=== PATIENT | male | born 1970 | race Caucasian/White ===

== ENCOUNTER 2020-06-01 17:00 | Emergency (ER) | payer BC, SELFPAY ==
--- NOTE | ~2020-06-01 | XR_ITS ---
EXAMINATION: XR chest 2V DATE: 06/01/2020 17:55 INDICATION: Chest pain and hypertension TECHNIQUE: PA and lateral views of the chest were obtained. COMPARISON: Chest radiograph dated 02/11/2017 FINDINGS: The lungs remain clear with no focal airspace opacities, pulmonary edema, pleural effusion or pneumot horax. The cardiomediastinal silhouette is normal. Cholecystectomy clips in the right upper quadrant. Moderate thoracolumbar spondylosis. Anterior plate and screw fixation for lower cervical anterior sp inal fusion. IMPRESSION: 1. No acute cardiopulmonary disease. Reviewed, dictated and finalized at location A.
[2020-06-01 17:07] VITALS: BP 204/84; PULSE 65; RESP 18; TEMP 37.2; O2SAT 99
--- NOTE | 2020-06-01 17:18 | ECG_ITS ---
Measurements Intervals [place] Rate: 66 P: 44 [place]: 170 QRS: -47 QRSD: 104 T: 15 QT: 318 QTc: 334 Interpretive Statements SINUS RHYTHM LEFT ANTERIOR FASCICULAR BLOCK VOLTAGE CRITERIA FOR LVH NONSPECIFIC T-WAVE ABNORMALITY- INFERIOR LEADS ABNORMAL ECG Electronically Signed On 06-02-2020 6:54:54 CDT by Kelvin Horne D.O.
[2020-06-01 17:28] LABS: Basophils Absolute Auto 0.1 K/mm3 (0.0-0.1); Basophils Percent Auto 0.5 % (0.2-1.2); Eosinophils Absolute Auto 0.2 K/mm3 (0-0.3); Eosinophils Percent Auto 1.8 % (0-4.4); Hemoglobin 15.1 g/dL (14.0-18.0); Immature Granulocyte Absolute 0.05 K/mm3 (0.00-0.031); Immature Granulocyte Percent A 0.5 % (0-0.5); Lymphocytes Absolute Auto 2.92 K/mm3 (0.9-3.2); Mean Corpuscular HGB Conc 35.1 g/dl (32-36); Mean Corpuscular Hemoglobin 30.2 pg (26-34); Mean Platelet Volume 10.4 fl (7.4-10.4); Neutrophils Absolute Auto 5.9 K/mm3 (1.3-6.7); Neutrophils Percent Auto 58.2 % (45.5-73.1); Platelet Count Result 209 k/mm3 (150-375); Red Cell Distribution Width 12.3 % (11.5-14.5); White Blood Count 10.1 K/mm3 (4.5-10.0)
--- NOTE | 2020-06-01 17:30 | ED.GENADULT ---
HPI - General Adult General Chief complaint: Chest Pain <Franco Thomason PA-C - Last Filed: 06/01/20 21:02> Stated complaint: chest pressure/htn <Franco Thomason PA-C - Last Filed: 06/01/20 21:02> Time Seen by Provider: 06/01/20 17:21 <Franco Thomason PA-C - Last Filed: 06/01/20 21:02> Source: patient <Franco Thomason PA-C - Last Filed: 06/01/20 21:02> Mode of arrival: ambulatory <Franco Thomason PA-C - Last Filed: 06/01/20 21:02> Limitations: no limitations <Franco Thomason PA-C - Last Filed: 06/01/20 21:02> History of Present Illness HPI narrative: Patient is a 50-year-old male who presents to emergency department for evaluation of left-sided chest pain just above the breast that is been present for 2 weeks occurs every day patient notes he has been under increasing stress and that his blood pressure has been running high patient recently had his blood pressure medicine alteredin the last 2 weeks and then hydrochlorothiazide was added in the last 2 days. Patient notes mild discomfort that does not radiate nothing makes it better or worse. Patient presents in no distress <Franco Thomason PA-C - Last Filed: 06/01/20 21:02> Related Data Home medications: Home Medications Medication Instructions Recorded Confirmed ibuprofen PO 12/03/19 meloxicam PO 12/03/19 <Franco Thomason PA-C - Last Filed: 06/01/20 21:02> Allergies/adverse reactions: Allergies Allergy/AdvReac Type Severity Reaction Status Date / Time Sulfa (Sulfonamide Allergy Unknown Unknown Verified 12/02/19 13:06 Antibiotics) <Franco Thomason PA-C - Last Filed: 06/01/20 21:02> Review of Systems Review of Systems: All systems reviewed & are unremarkable except as noted in HPI and below <Franco Thomason PA-C - Last Filed: 06/01/20 21:02> PMFSH Past Medical History Medical History: Medical History Arthritis Chondromalacia of left patellofemoral joint Hypertension Vision abnormalities <Franco Thomason PA-C - Last Filed: 06/01/20 21:02> Family History Family History: Family History Father Hypertension Patient's father is in good health Mother Hypertension Patient's mother is in good health Grandparent Diabetes mellitus <Franco Thomason PA-C - Last Filed: 06/01/20 21:02> Social History Social History: Social History Smoking status: Never smoker Alcohol intake: current Drinks per week: 1 Gender identity (if verbalized by the patient): Male <Franco Thomason PA-C - Last Filed: 06/01/20 21:02> Exam Narrative: Exam Narrative: GENERAL: Well-appearing, well-nourished, and in no acute distress. HEAD: Normocephalic, atraumatic. EYES: PERRLA and EOMI. ENT: Nares clear, no rhinorrhea or epistaxis. Mucous membranes moist. Oropharynx without tonsillar hypertrophy exudate or other lesions. NECK: Supple. No adenopathy or masses. CHEST: Clear to auscultation. No respiratory distress. No wheezes rales or rhonchi HEART: Regular rate and rhythm. No murmur heard. Normal peripheral pulses. ABDOMEN: Soft, nontender, nondistended EXTREMITIES: Normal range of motion. No edema. SKIN: Warm, dry, no rash. NEURO: No focal deficits. Alert and oriented x3. Cranial nerves II through XII grossly intact PSYCH: Normal mood and affect. <Franco Thomason PA-C - Last Filed: 06/01/20 21:02> Course Course Emergency Course: Patient in the room at this time in no distress resting comfortably no high risk changes in the blood work or imaging patient will be discharged home with plan follow-up with primary care and cardiology felt appropriate for outpatient reevaluation <Franco Thomason PA-C - Last Filed: 06/01/20 21:02> Vital Signs Vital signs: Vital Signs Temperature 9
[2020-06-01 17:37] LABS: INR 1.1; Prothrombin Time 13.5 Seconds (11.1-14.7)
[2020-06-01 17:38] LABS: Partial Thromboplastin Time 25.2 SECONDS (22.3-36.8)
[2020-06-01 17:39] LABS: Anion Gap 12 mmol/L (8-16); Blood Urea Nitrogen 20 mg/dL (9-20); Calcium 9.2 mg/dL (8.4-10.2); Carbon Dioxide 26 mmol/L (22-30); Chloride 103 mmol/L (98-107); Estimated CRCL calculation 66 ml/min; Estimated Glomerular Filt Rate > 60; Glucose 136 mg/dL (75-110); Potassium 2.9 mmol/L (3.4-5.0); Sodium 141 mmol/L (137-145)
[2020-06-01 17:51] LABS: Troponin I 0.015 ng/mL (0.000-0.034)
[2020-06-01] MEDS: hydrALAZINE HCL 20 MG/ML VIAL 10 MG IV PUSH (18:07)
[2020-06-01] MEDS: ASPIRIN 81 MG CHEWABLE TABLET 324 MG PO (18:07)
[2020-06-01 18:10] VITALS: BP 180/102; PULSE 68; RESP 18
[2020-06-01 19:18] LABS: D Dimer 0.37 ug/mL (<0.48)
[2020-06-01 19:33] VITALS: BP 178/96; PULSE 93; RESP 18; O2SAT 99
[2020-06-01 20:48] LABS: Troponin I 0.021 ng/mL (0.000-0.034)
[2020-06-01 21:25] VITALS: BP 161/89; PULSE 79; RESP 17; O2SAT 97
== END 2020-06-01 21:25 | disposition home or self-care (01) ==
PROVIDERS: Emergency Medicine; Emergency Medicine Emergency Medical Services; Emergency Provider Emergency Medicine; PCP Internal Medicine
DX: R07.9 Chest pain, unspecified (principal); M19.90 Unspecified osteoarthritis, unspecified site; I10 Essential (primary) hypertension
CPT/HCPCS: 36415; 71046; 80048; 84484; 85025; 85380; 85610; 85730; 93005; 96365; 96375; 99284; A9270; J0131; J0360; J2060

== ENCOUNTER 2023-06-04 08:17 | Outpatient (CLI) | payer BC, SELFPAY ==
--- NOTE | 2023-06-14 16:02 | WPDSLEEPSTUD ---
Sleep Study Date of Study: 06/04/23 Ordering Provider: Amado Rolle MD Interpreting Physician: Kamryn Davis MD Sleep Study Type: CPAP Titration Height: 1.68 m Weight: 86.183 kg Body Mass Index: 30.7 Neck Circumference (inches): 16 [place]: 15 Reason for Sleep Study Loud snoring, witnessed apnea, fatigue, high blood pressure Sleep History Filipe Conteh Jr is a 53-year-old man with hypertension, diabetes, chronic kidney disease and GERD who reports problems waking up during the night and being excessively sleepy during the daytime. He frequently awakens from sleep feeling short of breath and awaken is at night with heartburn, belching or coughing. He always snores and it is always loud enough that others complain to him. He does not have difficulty sleeping with a cold. He occasionally wakes up gasping for breath at night. He frequently is told by others that he has breathing problems at night. He rarely sweats excessively at night or notices his heart pounding or beating irregularly at night. He occasionally falls asleep during the day, often falls asleep involuntarily and even occasionally falls asleep while driving. He does not have loss of muscle tone with strong emotion. He does not have daytime difficulties due to excessive sleepiness. 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 He does not feel paralyzed on waking or falling asleep. He does not have vivid dreamlike scenes upon awakening or falling asleep. He does not feel afraid to go to sleep. He does not have nightmares. He rarely remembers his dreams. He always has racing thoughts. He denies feeling sad or depressed. Occasionally feels anxious. He always has muscular tension and notices parts of his body jerking. He rarely kicks at night. He rarely has crawling or aching feelings in his legs. He occasionally has leg pain at night. He does not have morning jaw pain. He does not grind his teeth at night. He always bothered by pain during the day, always awakened by pain at night. Constantly wakes up feeling stiff in the morning with sore achy muscles and pain in his neck and spine. He has headaches, memory problems and he takes antacids regularly. Normal bedtime is 11:00 p.m. falling asleep within 10 minutes. He wakes twice at night to go to the bathroom and then is quickly able to return to sleep. He wakes the morning at 7:00 a.m.. On weekends bedtime is 1 hour later, midnight and he is sleeps in until 9:00 a.m.. He estimates getting between 7 and 8 hours of sleep usually. 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 he might take a nap in the afternoon or evening. A short nap lasting 10 or 15 minutes is not refreshing. He feels better in the morning compared to other times of day. Habits: Never used tobacco. Caffeine; one soda every other day. No alcohol or recreational substances. [facility] Past Medical History Medical History (Updated 06/14/23 @ 16:50 by Kamryn Davis MD) Arthritis Chondromalacia of left patellofemoral joint CKD (chronic kidney disease) Diabetes mellitus DJD (degenerative joint disease) GERD (gastroesophageal reflux disease) Hyperlipidemia Hypertension Proteinuria Rheumatoid arthritis involving both hands Sinus tarsi syndrome of right ankle Vision abnormalities Surgical History Surgical History (Updated 06/14/23 @ 16:55 by Kamryn Davis MD) S/P cervical spinal fusion C5-C6 2002 Status post carpal tunnel release of both wrists Status post cholecystectomy Family History Family History Father Hypertension Patient's father is in good health Mother Hypertension Patient's mother is in good health Grandparent Diabetes mellitus Social History Social History Smoking status: Never smoker Alcohol intake: current Drinks per week: 1 Alcohol use details: Occasi
[2023-06-14 16:48] VITALS: BMI 30.7
== END 2023-06-05 07:09 | disposition home or self-care (01) ==
LOC: ANHCSM 08:17
PROVIDERS: PCP Internal Medicine; Visit Provider Internal Medicine Cardiovascular Disease
DX: G47.33 Obstructive sleep apnea (adult) (pediatric) (principal)
CPT/HCPCS: 95811

== ENCOUNTER 2024-11-27 00:48 | Day surgery (SDC) | payer BC, SELFPAY ==
[2024-11-12 08:31] VITALS: BMI 29.9
--- OUTSIDE RECORDS SUMMARY | 2024-11-27 00:50 | XMS_ITS | Data Portability ---
Author Organization [place] - [facility] OFFICE Address [address] [place] [address] Assessment No assessment recorded. Plan of Treatment Reminders Order Date Submit Date Provider Last Modified By Organization Details Last Modified Time Details Appointments None recorded. Lab None recorded. Referral None recorded. Procedures None recorded. Surgeries None recorded. Imaging electrocar diogram 2019 [email or web address] Not available 0 08:58:02 Medication Orders Aldactone 25 mg tablet 2019 [facility] #[id number], [address], [place], [id number], 0 15:35:31 amlodipine 10 mg tablet 2019 [facility] #[id number], [address], [place], [id number], 0 14:32:07 Patient TargetsNo targets recorded. Patient Instructions Encounter Date Encounter Id Patient Instructions Last Modified By Organization Details Last Modified Time 06/28/2020 [id number] Exercise advised Low cholesterol diet advised Low sodium diet advised [email or web address] Not available 06/29/2020 17:36:00 Scribed by Griselda Fish [facility] [email or web address] Not available 06/29/2020 17:36:05 07/26/2020 [id number] Exercise advised Low cholesterol diet advised Low sodium diet advised [email or web address] Not available 07/26/2020 14:54:06 Patient was seen and evaluated by Griselda Fish [employer]. Plan of care was discussed with collaborating physician and note cosigned by Dr. Petros Wright. [email or web address] Not available 07/26/2020 14:53:53 08/09/2020 [id number] Exercise advised Low cholesterol diet advised Low sodium diet advised [email or web address] Not available 08/09/2020 14:29:34 Scribed by Griselda Fish [facility] [email or web address] Not available 08/09/2020 14:29:24 08/23/2020 [id number] Exercise advised Low cholesterol diet advised Low sodium diet advised [email or web address] Not available 08/23/2020 14:17:38 Scribed by Griselda Fish [facility] [email or web address] Not available 08/23/2020 14:17:42 09/13/2020 [id number] Exercise advised Low cholesterol diet advised Low sodium diet advised [email or web address] Not available 09/13/2020 14:42:27 Scribed by Griselda Fish [facility] [email or web address] Not available 09/13/2020 14:42:31 Reason for Referral None Reported. Results Created Date Observation Date Name Description Value Unit Range Abnormal Flag Note LastModifiedBy Organization Detail LastModifiedTime 06/29/20 20 06/01/2020 XR, chest , 2 view No observ ation record ed. Not Available 2019 16:23:37 06/29/20 20 06/01/2020 elect rocar diogr am No observ ation record ed. Not Available 2019 16:28:01 06/29/20 20 06/01/2020 XR, chest No observ ation record ed. [email or web address] Not Available 2019 14:51:25 06/29/20 20 06/02/2020 elect rocar diogr am No observ ation record ed. [email or web address] Not Available 2019 14:45:46 06/29/20 20 06/01/2020 elect rocar diogr am No observ ation record ed. [email or web address] Not Available 2019 14:39:31 06/29/20 20 06/01/2020 elect rocar diogr am No observ ation record ed. [email or web address] Not Available 2019 14:42:38 09/14/20 20 09/03/2020 tread mill nucle ar stres s test (PROC ) No observ ation record ed. Not Available 2019 16:11:05 Result Notes Documentation Provider Name and Address Organization Details Recorded Time Cbc W/ Diff : 06/01/20:WBC 10.1,RBC 5.00,HGB 15.1,HCT 43.0,PLT 209. Jean Carlos Long [facility] 07/02/2020 14:00:04 Xr, Chest : XR, Chest 07/02/20:no acute cardiopulmonary disease. Evangelistaarik Long [facility] 07/02/2020 14:51:25 Cmp, Serum Or Plasma : 10/05/19:Na 141,K 2.9,Cl 109,CO2 26,GLU 136,BUN 20,Cr 1.2 . [facility] 14:00:04 Lipid Panel, Blood : 08/03/20:Na 140,K 3.9,Cl 102,CO2 28,GLU 138,BUN 17,Cr 1.31,AST ,ALT ,TC 175,TG 260,LDL 95,HDL 28. Evangelistaarik Long [facility] 08/04/2020 06:19:34 Problems Name Problem SNOMED Code Status Onset Date Resolution Date Notes Provider Name and Address Organization Details Recorded Time Essential hypertension 21632199 Active 2019 [facility] 0 16:37:42 Dyspnea on exertion 11645757 Active 2019 [facility] 0 16:37:47 Problem Notes None recorded. Procedures Surgical History None recorded. Imaging Results Imaging Date Name Status LastModified by Organization Details LastModified Time 06/01/2020 XR, chest, 2 view completed Informa tion not available 06/29/2020 16:23:37 06/01/2020 electrocardiogram completed Informa tion not available 06/29/2020 16:28:01 06/01/2020 XR, chest completed Information no t available 07/02/2020 14:51:25 06/02/2020 electrocardiogram completed Informa tion not available 07/02/2020 14:45:46 06/01/2020 electrocardiogram completed Informa tion not available 07/05/2020 14:39:31 06/01/2020 electrocardiogram completed Informa tion not available 07/05/2020 14:42:38 09/03/2020 treadmill nuclear stress test (PROC) completed Information not available 09/14/2020 16:11:05 Procedure Notes None recorded. Medical Equipment None Reported. Allergies No known drug allergies Medications Name Sig Start Date Stop Date Status Note LastModified by Organization Details LastModified Time losartan 50 mg tablet 06/28 completed Not Available Not Available Not Available metformin 500 mg tablet 06/28 completed Not Available Not Available Not Available carvedilo l 6.25 mg tablet TAKE 1 TABLET BY MOUTH TWICE DAILY active Not Available Not Available No t Available chlorthal idone 25 mg tablet TAKE 1 TABLET BY MOUTH EVERY MORNING active Not Available Not Available No t Available amlodipin e 5 mg tablet TAKE 1 TABLET BY MOUTH AT BEDTIME active Not Available Not Available No t Available spironola ctone 25 mg tablet TAKE 1 TABLET BY MOUTH EVERY DAY active Not Available Not Available No t Available amlodipin e 10 mg tablet TK 1 T PO QD active Not Available Not Available No t Available losartan 25 mg tablet 06/28 completed Not Available Not Available Not Available hydrochlo rothiazid e 12.5 mg capsule TK 1 C PO QD active Not Available Not Available No t Available omeprazol e 20 mg capsule,d elayed release TAKE 1 CAPSULE BY MOUTH EVERY DAY NEEDED active Not Available Not Available No t Available benazepri l 40 mg tablet 06/28 completed Not Available Not Available Not Available losartan 100 mg tablet TAKE 1 TABLET BY MOUTH EVERY DAY active Not Available Not Available No t Available rosuvasta tin 10 mg tablet TAKE 1 TABLET BY MOUTH AT BEDTIME active Not Available Not Available No t Available rosuvasta tin 20 mg tablet Take 1 tablet every day by oral route as directed . active Not Available Not Available No t Available metoprolo l tartrate 25 mg tablet 06/28 completed Not Available Not Available Not Available potassium acetate 08/09 completed Not Available Not Available Not Available vitamin E QD active Not Available Not Mayra ilable Not Available Daily Multi-Vit clark QD active Not Available Not Available Not Available Slender Cortisol 07/26 completed pt has stopped this med since last sunday. Not Available Not Available Not Available fenofibra te nanocryst allized 48 mg tablet 06/28 completed Not Available Not Available Not Available Zyrtec 10 mg capsule Take 10 mg every day by oral route as needed. active Not Available Not Available No t Available potassium chloride ER 20 mEq tablet,ex tended release Take 1 tablet every day by oral route as directed . active Not Available Not Available No t Available Vitals Date Recorded Body height Body mass index (BMI) Body weight Heart rate Oxygen saturation Oxygen saturation in Arterial blood by Pulse oximetry Systolic blood pressure Diastolic blood pressure Provider Name and Address Organization Details Last Updated DateTime 0 170.18 cm 29.3 kg/m2 54616.7 7 g 65 /min 97 % 97 % 170 mm[Hg] 104 mm[Hg] [facility] 0 15:14:58 Date Recorded Body height Body temperature Provider N yuli and Address Organization Details Last Updated DateTime 07/26/2020 170.18 cm 97.9 [degF] [facility]2020 14:22:29 Date Recorded Body mass index (BMI) Body weight Heart rate Oxygen saturation Oxygen saturation in Arterial blood by Pulse oximetry Systolic blood pressure Diastolic blood pressure Provider Name and Address Organization Details Last Updated DateTime 0 30 kg/m2 08265.2 2 g 72 /min 97 % 97 % 180 mm[Hg] 100 mm[Hg] Michelle Tyler [facility] 0 14:38:02 Date Recorded Body height Body temperature Provider N yuli and Address Organization Details Last Updated DateTime 08/09/2020 170.18 cm 97.9 [degF] [facility] 08/09/2020 14:02:25 Date Recorded Body mass index (BMI) Body weight Heart rate Oxygen saturation Oxygen saturation in Arterial blood by Pulse oximetry Systolic blood pressure Diastolic blood pressure Systolic blood pressure Diastolic blood pressure Provider Name and Address Organization Details Last Updated DateTime 0 30 kg/m2 29804.2 2 g 52 /min 98 % 98 % 180 mm[Hg] 110 mm[Hg] 185 mm[Hg] 105 mm[Hg] Michelle Tyler [facility] 0 14:18:12 Date Recorded Body height Body temperature Provider N yuli and Address Organization Details Last Updated DateTime 08/23/2020 170.18 cm 98 [degF] Anyi Guillen [facility] 08/23/2020 13:59:20 Date Recorded Body mass index (BMI) Body weight Heart rate Oxygen saturation Oxygen saturation in Arterial blood by Pulse oximetry Systolic blood pressure Diastolic blood pressure Provider Name and Address Organization Details Last Updated DateTime 0 30 kg/m2 01424.0 2 g 74 /min 96 % 96 % 145 mm[Hg] 85 mm[Hg] Michelle Nayeli [facility] 0 14:09:01 Date Recorded Body height Provider Name an d Address Organization Details Last Updated DateTime 09/13/2020 170.18 cm Anyi Nickersonvins [facility] 09/13/2020 13:56:15 Date Recorded Body temperature Body mass index (BMI) Body weight Heart rate Oxygen saturation Oxygen saturation in Arterial blood by Pulse oximetry Systolic blood pressure Diastolic blood pressure Provider Name and Address Organization Details Last Updated DateTime 0 97.3 [degF] 30.1 kg/m2 61176.8 1 g 52 /min 99 % 99 % 145 mm[Hg] 90 mm[Hg] Michelle Nayeli [facility] 0 14:00:34 Social History Question Answer Notes LastModified by Organizat ion Details LastModified Time Tobacco Smoking Status Never Smoker [facility]/28/2020 15:05:48 What Is Your Level Of Alcohol Consumption? Occasional [email or web address] Information not available 06/28/2020 What Is Your Level Of Caffeine Consumption? Occasional [email or web address] Information not available 06/28/2020 How Much Tobacco Do You Chew? None [email or web address] Information not available 06/28/2020 What Type Of Diet Are You Following? REGULAR Information not available 06/28/2020 Which Illicit Or Recreational Drugs Have You Used? None Information not available 06/28/2020 Do You Or Have You Ever Used E-cigarettes Or Vape? 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 With Others [email or web address] Information not available 06/28/2020 Marital Status [email or web address] Informatio n not available 06/28/2020 What Was The Date Of Your Most Recent Tobacco Screening? 06/28/2020 Information not available 07/23/2020 How Many Children Do You Have? 4 [email or web address] Information not available 06/28/2020 Do You Or Have You Ever Used Smokeless Tobacco? Never Used Smokeless Tobacco Information not available 06/28/2020 How Much Tobacco Do You Smoke? No Information not available 07/23/2020 General Stress Level Medium [email or web address] Information not available 06/28/2020 How Many Years Have You Smoked Tobacco? 0 Information not available 07/23/2020 Sex: Unknown Functional Status Question Answer Note LastModified by Organization D etails LastModified Time What is your exercise level? Moderate [email or web address] Information not available 06/28/2020 Mental Status None recorded. Family History Nothing Reported. Medical History Condition Response Hypertension Y Past Encounters Encounter ID Performer Location Encounter Start Date Encounter Closed Date Diagnosis/Indication Diagnosis SNOMED-CT Code Diagnosis ICD10 Code Diagnosis Note [id number] MD [facility] [address] [place] [address] [id number] 06/28/2020 14:47:57 06/29/2020 09:09:33 Essential hypertension 41899805 I10 Will start spironolac tone 25mg daily given history of hypokalemi a 06/29/2020 Dyspnea on exertion 6084 5006 R06.09 Treadmill Myoview Stress test, has high [place] Risk score. Has Known CAD, or CAD risk equivalent . To look for any ischemia. [id number] Griselda Fish [facility] Office [address] [place] [address] [phone] 07/26/2020 14:19:10 07/26/2020 15:24:21 Essential hypertension 07133905 I10 Will add Coreg 6.25mg BID and follow-up in 2 weeks Dyspnea on exertion 6084 5006 R06.09 He will need treadmill stress test but patient declines at this time. He would like to schedule at his subsequent appointmen t in 2 weeks. [id number] MD [facility] [address] [place] [address] [id number] 08/09/2020 13:56:30 08/09/2020 15:29:31 Essential hypertension 61327293 I10 Will add amlodipine 10mg 08/09/2020 and follow-up again in 2 weeks Dyspnea on exertion 6084 5006 R06.09 Will plan for treadmill stress test when BP improves [id number] MD [facility] [address] [place] [address] [id number] 08/23/2020 13:58:16 08/23/2020 14:20:44 Essential hypertension 36663772 I10 Now with fair control, will continue with current regimen for now. Dyspnea on exertion 6084 5006 R06.09 Treadmill Myoview Stress test, has high [place] Risk score. Has Known CAD, or CAD risk equivalent . To look for any ischemia. [id number] MD [facility] [address] [place] [address] [phone] 09/13/2020 13:55:44 09/14/2020 10:57:34 Essential hypertension 93851579 I10 Remains with fair control, will continue with current regimen for now and follow-up in 3 months.Con tinue BP diary Dyspnea on exertion 6084 5006 R06.09 TDM 09/03/2020 was negativeEn couraged regular exercise Health Concerns Section Related Observation LastModified by Organization Detai ls LastModified Time None Recorded Concern Status LastModified by Organization Details LastModified Time None Recorded Advance Directives Directive None Recorded Payers Encounter Date Sequence Insurance Name Policy Number Policy [place] Covered Member ID De [place] Member ID Guarantor Name 06/28/2020 1 [place] [id number] Daiana S Wero [id number] Filipe Conteh 07/26/2020 1 [place] [id number] Daiana S Wero [id number] Filipe Conteh 08/09/2020 1 [place] [id number] Daiana S Wero [id number] Filipe Crespoinski 08/23/2020 1 [place]) [id number] Daiana S Wero [id number] Filipe Conteh 09/13/2020 1 [place] [id number] Daiana S Wero [id number] Filipe Conteh Notes Date Note Type Note Provider Name and Address Organization Details Recorded Time 06/28/2020 text/html 06/28/2020 CC: HTN 50-year-old male with PMH of HTN presents for cardiac consultation for uncontrolled HTN. He presented to [facility] 06/01/2020 for chest pain/pressure and hypertensive urgency. His BP was 204/84 on intial presentation. He reports chest pain has since resolved but has dyspnea on exertion. His PCP originally prescribed HCTZ 25mg but he then become hypokalemic so HCTZ was decreased to 12.5mg. His BP remained elevated so he was started on losartan 100mg by his PCP but his BP has remained uncontrolled since. No shortness of breath at rest. No orthopnea. No PND's. No dizziness. No palpitation. No syncope or near syncope. No leg swelling. No nausea and vomiting. No side effects from medications. Results from this visit, or from the past: 06/01/20 CBC: WBC 10.1, HGB 15.1, HCT 43.0, PLT 209 06/01/20 BMP: NA 141, K 2.3, CL 103, CO2 26, GLU 136, BUN 20, CR 1.20 06/01/20 CHEST XR: No acute cardiopulmonary disease. 06/01/20 EKG: Sinus rhythm, Left anterior fascicular block. Voltage criteria for LVH. Nonspecific T wave abnormality - inferior leads. Abnormal EKG Petros Wright MD [address] [place], [address], [facility] 06/29/2020 17:41:02 07/26/2020 text/html 07/26/2020 CC: chest pain 50-year-old male with PMH of HTN presents for follow up. He was last seen in clinic 1 month ago on 06/28/2020 for hospital follow up visit. He was started on Spironolactone 25mg daily, and stress test was ordered but rescheduled. His BP remains elevated today and he reports his BP averages between 180/100 to 150/90. He is very anxious during his exam, and is worried about various sonal effects from medications as well as stress testing that he read about on the internet. He continues to have dyspnea on exertion that he reports is unchanged. He presented to [facility] 06/01/2020 for chest pain/pressure and hypertensive urgency. His BP was 204/84 on intial presentation. He reports chest pain has since resolved but has dyspnea on exertion. His PCP originally prescribed HCTZ 25mg but he then become hypokalemic so HCTZ was decreased to 12.5mg. His BP remained elevated so he was started on losartan 100mg by his PCP but his BP has remained uncontrolled since. No chest pain. No shortness of breath at rest. No orthopnea. No PND's. No dizziness. No palpitation. No syncope or near syncope. No leg swelling. No nausea and vomiting. No side effects from medications. Results from this visit, or from the past: 06/01/20 CBC: WBC 10.1, HGB 15.1, HCT 43.0, PLT 3284806/01/20 BMP: NA 141, K 2.3, CL 103, CO2 26, GLU 136, BUN 20, CR 1.20 06/01/20 CHEST XR: No acute cardiopulmonary disease. 06/01/20 EKG: Sinus rhythm, Left anterior fascicular block. Voltage criteria for LVH. Nonspecific T wave abnormality - inferior leads. Abnormal EKG Griselda Fish [facility] 07/26/2020 15:24:19 08/09/2020 text/html 08/09/2020 CC: chest pain 50-year-old male with PMH of HTN presents for follow up. He was last seen in clinic 2 weeks ago on 07/26/2020. At that visit he was started on Coreg 6.25 mg BID due to poorly controlled HTN. Needs stress test, but wanted to delay scheduling test to today. His BP remains about the same despite adding Coreg 6.25mg BID. He reports being compliant with all medications. Previously reported BP averages between 180/100 to 150/90. He is very anxious during his exam, and is worried about various side effects from medications as well as stress testing that he read about on the internet. He continues to have dyspnea on exertion that he reports is unchanged. He presented to [facility] 06/01/2020 for chest pain/pressure and hypertensive urgency. His BP was 204/84 on intial presentation. He reports chest pain has since resolved but has dyspnea on exertion. His PCP originally prescribed HCTZ 25mg but he then become hypokalemic so HCTZ was decreased to 12.5mg. His BP remained elevated so he was started on losartan 100mg by his PCP but his BP has remained uncontrolled since. No chest pain. No shortness of breath at rest. No orthopnea. No PND's. No dizziness. No palpitation. No syncope or near syncope. No leg swelling. No nausea and vomiting. No side effects from medications. Results from this visit, or from the past: 06/01/20 CBC: WBC 10.1, HGB 15.1, HCT 43.0, PLT 209 06/01/20 BMP: NA 141, K 2.3, CL 103, CO2 26, GLU 136, BUN 20, CR 1.20 06/01/20 CHEST XR: No acute cardiopulmonary disease. 06/01/20 EKG: Sinus rhythm, Left anterior fascicular block. Voltage criteria for LVH. Nonspecific T wave abnormality - inferior leads. Abnormal EKG 08/03/20:Na 140,K 3.9,Cl 102,CO2 28,GLU 138,BUN 17,Cr 1.31,AST ,ALT ,TC 175,TG 260,LDL 95,HDL 28.06/01/20 CBC: WBC 10.1, HGB 15.1, HCT 43.0, PLT 8125106/01/20 BMP: NA 141, K 2.3, CL 103, CO2 26, GLU 136, BUN 20, CR 1.20 10/05/19:Na 141,K 2.9,Cl 109,CO2 26,GLU 136,BUN 20,Cr 1.2 06/01/20 CHEST XR: No acute cardiopulmonary disease. 06/01/20 EKG: Sinus rhythm, Left anterior fascicular block. Voltage criteria for LVH. Nonspecific T wave abnormality - inferior leads. Abnormal EKG Petros Wright MD [address] [place], [address], [facility] 08/09/2020 15:29:29 08/23/2020 text/html 08/23/2020 CC: chest pain 50-year-old male with PMH of HTN presents for follow up. He was last seen in clinic 2 weeks ago on 08/09/2020. At that visit he was started on Amlodipine 10mg daily due to poorly controlled HTN, despite recently starting Coreg 6.25mg BID. Needs stress test, but wanted to delay scheduling test to today. He now has better BP control with addition of amlodipine 10mg. He reports his BP at home is averaging 120s/80s but has occasions where is not feeling well even though his BP is normal. Previously reported BP averages between 180/100 to 150/90. He is very anxious during his exam, and is worried about various side effects from medications as well as stress testing that he read about on the internet. He continues to have dyspnea on exertion that he reports is unchanged. He presented to [facility] 06/01/2020 for chest pain/pressure and hypertensive urgency. His BP was 204/84 on intial presentation. He reports chest pain has since resolved but has dyspnea on exertion. His PCP originally prescribed HCTZ 25mg but he then become hypokalemic so HCTZ was decreased to 12.5mg. His BP remained elevated so he was started on losartan 100mg by his PCP but his BP has remained uncontrolled since. No chest pain. No shortness of breath at rest. No orthopnea. No PND's. No dizziness. No palpitation. No syncope or near syncope. No leg swelling. No nausea and vomiting. No side effects from medications. Results from this visit, or from the past: 06/01/20 CBC: WBC 10.1, HGB 15.1, HCT 43.0, PLT 209 06/01/20 BMP: NA 141, K 2.3, CL 103, CO2 26, GLU 136, BUN 20, CR 1.20 06/01/20 CHEST XR: No acute cardiopulmonary disease. 06/01/20 EKG: Sinus rhythm, Left anterior fascicular block. Voltage criteria for LVH. Nonspecific T wave abnormality - inferior leads. Abnormal EKG 08/03/20:Na 140,K 3.9,Cl 102,CO2 28,GLU 138,BUN 17,Cr 1.31,AST ,ALT ,TC 175,TG 260,LDL 95,HDL 28.06/01/20 CBC: WBC 10.1, HGB 15.1, HCT 43.0, PLT 4999406/01/20 BMP: NA 141, K 2.3, CL 103, CO2 26, GLU 136, BUN 20, CR 1.20 10/05/19:Na 141,K 2.9,Cl 109,CO2 26,GLU 136,BUN 20,Cr 1.2 06/01/20 CHEST XR: No acute cardiopulmonary disease. 06/01/20 EKG: Sinus rhythm, Left anterior fascicular block. Voltage criteria for LVH. Nonspecific T wave abnormality - inferior leads. Abnormal EKG Petros Wright MD [address] [place], [address], [facility] 08/23/2020 14:20:42 09/13/2020 text/html 09/13/2020 CC: chest pain 50-year-old male with PMH of HTN presents for follow up. He was last seen in clinic 3 weeks ago on 08/23/2020. At that visit his blood pressure was under better control, which allowed for stress test to be scheduled. He had a stress test on 09/03/2020 that was negative. He continues to report significant fatigue and weakness. He reports he is very active at work but does not regularly exercise. He also reports continued dyspnea on exertion. He reports his BP has been averaging 140/80. He now has better BP control with addition of amlodipine 10mg. He reports his BP at home is averaging 120s/80s but has occasions where is not feeling well even though his BP is normal. Previously reported BP averages between 180/100 to 150/90. He is very anxious during his exam, and is worried about various side effects from medications as well as stress testing that he read about on the internet. He continues to have dyspnea on exertion that he reports is unchanged. He presented to [facility] 06/01/2020 for chest pain/pressure and hypertensive urgency. His BP was 204/84 on intial presentation. He reports chest pain has since resolved but has dyspnea on exertion. His PCP originally prescribed HCTZ 25mg but he then become hypokalemic so HCTZ was decreased to 12.5mg. His BP remained elevated so he was started on losartan 100mg by his PCP but his BP has remained uncontrolled since. No chest pain. No shortness of breath at rest. No orthopnea. No PND's. No dizziness. No palpitation. No syncope or near syncope. No leg swelling. No nausea and vomiting. No side effects from medications. Results from this visit, or from the past: 06/01/20 CBC: WBC 10.1, HGB 15.1, HCT 43.0, PLT 209 06/01/20 BMP: NA 141, K 2.3, CL 103, CO2 26, GLU 136, BUN 20, CR 1.20 06/01/20 CHEST XR: No acute cardiopulmonary disease. 06/01/20 EKG: Sinus rhythm, Left anterior fascicular block. Voltage criteria for LVH. Nonspecific T wave abnormality - inferior leads. Abnormal EKG 08/03/20:Na 140,K 3.9,Cl 102,CO2 28,GLU 138,BUN 17,Cr 1.31,AST ,ALT ,TC 175,TG 260,LDL 95,HDL 28.06/01/20 CBC: WBC 10.1, HGB 15.1, HCT 43.0, PLT 16685 BMP: NA 141, K 2.3, CL 103, CO2 26, GLU 136, BUN 20, CR 1.20 10/05/19:Na 141,K 2.9,Cl 109,CO2 26,GLU 136,BUN 20,Cr 1.2 06/01/20 CHEST XR: No acute cardiopulmonary disease. 06/01/20 EKG: Sinus rhythm, Left anterior fascicular block. Voltage criteria for LVH. Nonspecific T wave abnormality - inferior leads. Abnormal EKG Petros Wright MD [address] [place], [address], [facility] 09/14/2020 10:57:33
--- OUTSIDE RECORDS SUMMARY | 2024-11-27 00:50 | XMS_ITS | Clinical Summary ---
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 Gender Identity Not on file Sexual Orientation Not on file Plan of Treatment Upcoming Encounters Date Type Department Care Team (Late st Contact Info) Description 12/25/2024 10:30 AM CDT Office Visit [facility]ology - [place] [address] [facility] [address] [place] [address] Amandeep Abdi MD [address] [facility] [address] [place] [address] Health Maintenance Due Date Last Done Comments DTAP/TDAP/TD VACCINES (1 - Tdap) 1988 HEPATITIS B VACCINES (1 of 3 - 19+ 3-dose series) 1988 COLORECTAL SCREENING 2014 Colorectal Cancer Screening 2014 FIT-DNA Q 3 years 2014 FIT/FOBT Q 1 year 2014 Flex Sig/CT Colonography Q 5 years 2014 ZOSTER VACCINE (1 of 2) 2019 INFLUENZA VACCINE (#1) 2024 PNEUMOCOCCAL VACCINE 0-64 YEARS Aged Out No longer eligible based on patient's age to complete this topic Insurance BCBS BLUE PREFERRED
--- OUTSIDE RECORDS SUMMARY | 2024-11-27 00:51 | XMS_ITS | Encounter Summary ---
Author Organization [facility] Address [address] [facility] [place] [address] Care Team Providers Care Shop Helper Name Role Phone Pcp, Unknown Primary Care Provider Nik Álvarez MD Primary Care Provider Encounter Details Date Type Department Care Team (Late Contact Info) Description 03/05/2013 [facility] Outpatient Visit [facility] [address] [place] [phone] Unknown, Provider Social History Tobacco Use Types Packs/Day Years Used Date Smoking Tobacco: Never Assessed Sex and Gender Information Value Date Recorded Sex Assigned at Not on file Gender Identity Not on file Sexual Orientation Not on file documented as of this encounter Plan of Treatment Upcoming Encounters Date Type Department Care Team (Late Contact Info) Description 12/09/2024 8:30 AM 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 Appointment [facility] [address] [place] [phone] French Bolaños MD [address] [place] [phone] 12/12/2024 9:00 AM 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 Office Visit [facility] [address] [place] [phone] French Bolaños MD [address] [place] [phone] documented as of this encounter Visit Diagnoses Not on filedocumented in this encounter Care Teams Shop Helper Relationship Specialty Start Date End Date Pcp, Unknown [place] [address] PCP - General 02/25/13 Nik Hodgson MD [address] [address] PCP - General Internal Medicine 12/19/22 documented as of this encounter
--- OUTSIDE RECORDS SUMMARY | 2024-11-27 00:51 | XMS_ITS | Patient Health Summary ---
Author Organization [facility] Address [address] [place] [address] Care Team Providers Care Assistant Spa Manager Name Role Phone Nik Hodgson MD Primary Care Provider Note from [facility],non-owned Affiliates and Associated Physician Practices is amultiple site organization consisting of ambulatory clinics and hospital sitesin [place], [place] and [place]. This disclosure is being madepursuant to the Care Everywhere program and may not contain all information available regarding this patient. Last updated 18.[facility] Allergies No known active allergies Medications * Be aware that medications may not be up to date on this document. Alwaysverify current medications with the patient. * losartan (Cozaar) 100 MG tablet(Started 04/26/2022) Take 1 (one) tablet by mouth once daily * meloxicam (Mobic) 7.5 MG tablet(Started 03/01/2022) Take 1 (one) tablet by mouth 2 times daily as needed * omeprazole (PriLOSEC) 20 MG capsule(Started 04/25/2022) Take 1 (one) capsule by mouth daily before breakfast * rosuvastatin (Crestor) 40 MG tablet(Started 05/27/2022) Take 1 (one) tablet by mouth once daily * Vitamin E 180 MG (400 UNIT) CAPS Take 1 (one) capsule by mouth once daily * cetirizine (ZyrTEC) 10 MG tablet Take 1 (one) tablet by mouth once daily * Multiple Vitamin (MULTIVITAMIN ADULT PO) Take 1 tablet by mouth once daily * Misc Natural Products (CORTISOL PO) Take 1 tablet by mouth once daily * aMILoride (Midamor) 5 MG tablet(Started 07/19/2022) Take 2 (two) tablets by mouth every morning * NIFEdipine CR osmotic 24hr (Procardia-XL) 30 MG tablet(Started 07/19/2022) Take 1 (one) tablet by mouth at bedtime * empagliflozin (Jardiance) 25 MG tablet Take 1 (one) tablet by mouth once daily * spironolactone (Aldactone) 25 MG tablet(Started 08/30/2022) Take 1 (one) tablet by mouth every morning * methylPREDNISolone (Medrol Dosepak) 4 MG tablet(Started 12/19/2022) Take by mouth as directed Take as directed by mouth per package instructions. 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 Hypertriglyceridemia 12/26/2022 02/23/2023 Essential hypertension 07/23/2020 3 Social History Tobacco Use Types Packs/Day Years Used Date Smoking Tobacco: Never Smokeless Tobacco: Never Tobacco Cessation:Counseling Given: Not Answered Alcohol Use Standard Drinks/Week Comments Yes 0 (1 standard drink = 0.6 oz pur e alcohol) rare PHQ-2 Answer Date Recorded PHQ2 TOTAL SCORE 0 06/14/2022 Sex and Gender Information Value Date Recorded Sex Assigned at Not on file Gender Identity Not on file Sexual Orientation Not on file Last Filed Vital Signs Vital Sign Reading Time Taken Comments Blood Pressure 146/81 05/21/2024 1:16 PM CDT Pulse 69 05/21/2024 1:16 PM CDT Temperature 36.8 C (98.2 F) 02/23/2023 9:21 AM CDT Respiratory Rate 14 09/21/2023 9:52 AM CERTIFIED ORTHOTIC FITTER Oxygen Saturation 96% 04/11/2024 8:31 AM CDT Inhaled Oxygen Concentration - - Weight 88.2 kg (194 lb 8 oz) 05/21/2024 1:16 PM CDT Height 167.6 cm (5' 6 ) 05/21/2024 1:16 PM CDT Body Mass Index 31.39 05/21/2024 1:16 PM CDT Procedures * XR LUMBAR SPINE 4VW OR MORE(Performed 05/21/2024) Performed for Left lumbar radiculopathy, Transient left leg weakness, Lumbar spondylosis * CT CHEST W CONTRAST(Performed 03/21/2024) Performed for Mediastinal mass * CREATININE - POCT INTERFACED(Performed 03/21/2024) * ACETYLCHOLINE RECEPTOR BINDING ANTIBODY(Performed 09/21/2023) Performed for Mediastinal mass * CT CHEST W CONTRAST(Performed 09/20/2023) Performed for Mediastinal mass * CREATININE - POCT INTERFACED(Performed 09/20/2023) * MRI CHEST WWO CONTRAST(Performed 01/19/2023) 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 * CREATININE - POCT INTERFACED(Performed 01/19/2023) * HEMOGLOBIN A1C(Performed 07/03/2022) * CBC W AUTO DIFFERENTIAL(Performed 07/03/2022) * HLA TYPING B27(Performed 07/03/2022) * COMPREHENSIVE METABOLIC PANEL(Performed 07/03/2022) * XR WRIST LEFT 2VW(Performed 06/14/2022) Performed for Polyarthralgia * XR WRIST RIGHT 2VW(Performed 06/14/2022) Performed for Polyarthralgia * XR KNEE RIGHT 3VW(Performed 06/14/2022) Performed for Polyarthralgia * XR KNEE LEFT 3VW(Performed 06/14/2022) Performed for Polyarthralgia * XR SI JOINTS 3VW OR MORE(Performed 06/14/2022) Performed for Polyarthralgia * XR FOOT LEFT 3VW OR MORE(Performed 06/14/2022) Performed for Polyarthralgia * XR FOOT RIGHT 3VW OR MORE(Performed 06/14/2022) Performed for Polyarthralgia * XR HAND RIGHT 3VW OR MORE(Performed 06/14/2022) Performed for Polyarthralgia * XR HAND LEFT 3VW OR MORE(Performed 06/14/2022) Performed for Polyarthralgia * DERMATOPATHOLOGY(Performed 03/20/2014) * CARDIAC RHYTHM STRIP ORDER(Performed 06/11/2013) * XR CERVICAL SPINE 2 OR 3VW(Performed 06/09/2013) Performed for Pain * FUSION POSTERIOR CERVICAL (PCF)(Performed 06/09/2013) Performed for Cervical disc herniation * PT-INR(Performed 06/09/2013) Performed for Preop examination Results * XR Lumbar Spine 4Vw or More (05/21/2024 2:25 PM CDT) Anatomical Region Laterality Modality Spine Radiographic Tamica ging 05/21/2024 3:05 PM CDT Impressions 05/21/2024 3:35 PM CDT IMPRESSION: Degenerative changes. Edited by Sindhu Hager on 05/21/2024 3:09 PM > Interpreting Provider: John Griffin MD on 05/21/2024 3:35 PM Narrative 05/21/2024 3:35 PM CDT PROCEDURE: XR LUMBAR SPINE 4VW OR MORE DATE/TIME OF EXAM: 05/21/2024 2:25 PM CLINICAL INFORMATION: None relevant/not provided if blank. Indication: M54.16: Radiculopathy, lumbar region R29.898: Other symptoms and signs involving the musculoskeletal system M47.816: Spondylosis without myelopathy or radiculopathy, lumbar region Additional History: COMPARISON: None. TECHNIQUE: 5 views FINDINGS: Endplate degenerative changes are present. There is mild retrolisthesis L3 upon L4 with intervertebral disc space narrowing of L3-4. There is mild retrolisthesis L5 upon S1. There is intervertebral disc space narrowing of L5-S1. No acute fracture is present. Surgical clips overlie the right upper quadrant of the abdomen. Procedure Note John Griffin MD - 05/21/2024 PROCEDURE: XR LUMBAR SPINE 4VW OR MORE DATE/TIME OF EXAM: 05/21/2024 2:25 PM CLINICAL INFORMATION: None relevant/not provided if blank. Indication: M54.16: Radiculopathy, lumbar region R29.898: Other symptoms and signs involving the musculoskeletal system M47.816: Spondylosis without myelopathy or radiculopathy, lumbar region Additional History: COMPARISON: None. TECHNIQUE: 5 views FINDINGS: Endplate degenerative changes are present. There is mild retrolisthesisL3 upon L4 with intervertebral disc space narrowing of L3-4. There is mild retrolisthesis L5 upon S1. There is intervertebral disc space narrowingof L5-S1. No acute fracture is present. Surgical clips overlie the rightupper quadrant of the abdomen. IMPRESSION: Degenerative changes. Edited by Sindhu Hager on 05/21/2024 3:09 PM > Interpreting Provider: John Griffin MD on 05/21/2024 3:35 PM Blaire Arndt CONTRACT WRITER-STEREOPTIC PROJECTION TOPOGRAPHER DIAGNOSTIC TAMICA GING ORDERABLES * CT CHEST W CONTRAST (03/21/2024 11:14 AM CDT) Only the most recent of2 resultswithin the time period is included. Anatomical Region Laterality Modality Chest Computed Tomogra phy 03/21/2024 11:2 4 AM CDT Impressions 03/21/2024 11:33 AM CDT Impression: 1.Small soft tissue structure in the anterior mediastinum is favored to represent residual or rebound thymus and is unchanged since prior exams. 2.No acute process in the chest. > Interpreting Provider: Hugo Eduardo on 03/21/2024 11:33 AM Narrative 03/21/2024 11:33 AM CDT PROCEDURE: CT CHEST W CONTRAST, DATE/TIME OF EXAM: 03/21/2024 11:15 AM, LOCATION [facility] INDICATION: J98.59: Mediastinal mass ADDITIONAL CLINICAL INFORMATION: Ordering Provider Reason For Exam: Technologist Note: Additional: COMPARISON: CT chest 09/20/2023. TECHNIQUE: CT of the chest was performed after the uneventful administration of 100 mL of Isovue 370 intravenous contrast according to standard protocol. Findings: Lower Neck and Axillae: Subcentimeter hypodense nodules in the right thyroid lobe. Lungs: No pulmonary parenchymal or airway process is present. No suspicious pulmonary nodules are identified. No pleural fluid or pneumothorax is present. Heart and Pericardium: The cardiac chambers are normal in size. No pericardial fluid or thickening is present. Mediastinum and Margi: Redemonstration of ill-defined soft tissue structure within the anterior mediastinum posterior to the manubrium and anterior to the left brachiocephalic vein. Thoracic Vasculature: No vascular abnormality is present. Bones: Bone windows demonstrate no suspicious lytic or blastic lesions. The visible osseous structures are intact. Degenerative changes are seen in the spine. Partially shows cervical spinal fusion hardware. Soft tissues: Normal. Upper abdomen: Status post cholecystectomy. Otherwise the remaining visible portions of the upper abdomen are within normal limits. Procedure Note Huog Eduardo MD - 03/21/2024 PROCEDURE: CT CHEST W CONTRAST, DATE/TIME OF EXAM: 03/21/2024 11:15 AM, LOCATION [facility] INDICATION: J98.59: Mediastinal mass ADDITIONAL CLINICAL INFORMATION: Ordering Provider Reason For Exam: Technologist Note: Additional: COMPARISON: CT chest 09/20/2023. TECHNIQUE: CT of the chest was performed after the uneventful administration of 100 mL of Isovue 370 intravenous contrast according to standard protocol. Findings: Lower Neck and Axillae: Subcentimeter hypodense nodules in the right thyroid lobe. Lungs: No pulmonary parenchymal or airway process is present. Nosuspicious pulmonary nodules are identified. No pleural fluid or pneumothorax is present. Heart and Pericardium: The cardiac chambers are normal in size. No pericardial fluid or thickening is present. Mediastinum and Margi: Redemonstration of ill-defined soft tissuestructure within the anterior mediastinum posterior to the manubrium and anteriorto the left brachiocephalic vein. Thoracic Vasculature: No vascular abnormality is present. Bones: Bone windows demonstrate no suspicious lytic or blastic lesions.The visible osseous structures are intact. Degenerative changes are seen inthe spine. Partially shows cervical spinal fusion hardware. Soft tissues: Normal. Upper abdomen: Status post cholecystectomy. Otherwise the remainingvisible portions of the upper abdomen are within normal limits. Impression: 1.Small soft tissue structure in the anterior mediastinum is favored to represent residual or rebound thymus and is unchanged since prior exams. 2.No acute process in the chest. > Interpreting Provider: Hugo Eduardo on 03/21/2024 11:33 AM French Bolaños MD CT ORDERABLES * (ABNORMAL) CREATININE - POCT INTERFACED (03/21/2024 11:04 AM CDT) Only the most recent of3 resultswithin the time period is included. Creatinine POCT 1.19 0.30 - 1.30 mg/dL 03/21/2024 11:09 AM CDT [facility] eGFR 73(L) >=90 mL/min/1.7 3 m2 03/21/2024 11:[address] [facility] Blood BLOOD SPECIMEN / Unknown 03/21/2024 11:04 AM CDT 03/21/2024 11:09 AM CDT French Bolaños MD LAB - POINT OF CARE ORDERABLES [id number] [place] [address], [facility] [phone] * ACETYLCHOLINE RECEPTOR BINDING ANTIBODY (09/21/2023 10:53 AM CERTIFIED ORTHOTIC FITTER) Acetylcholine Binding Antibody <0.03 0.00 - 0.24 nmol/L 09/25/2023 4:10 PM CERTIFIED ORTHOTIC FITTER [facility] ([facility]) Comment: Negative: 0.00 - 0.24 Borderline: 0.25 - 0.40 Positive: >0.40 Blood BLOOD SPECIMEN / Unknown Lab Venipuncture / Unknown 09/21/2023 10:53 AM CERTIFIED ORTHOTIC FITTER 09/21/2023 10:59 AM CERTIFIED ORTHOTIC FITTER Narrative [facility] ([facility]) - 09/25/2023 4:10 PM CERTIFIED ORTHOTIC FITTER Performed at: [facility] Lab[address] [id number] Retail Clerk: Naz Peralta MD, Phone: [phone] French Bolaños MD LAB - SEROLOGY ORDER TK Performing Organization Address City/[facility]/ZIP Co de Phone Number [facility] ([facility]) [address] [place] [address] * MRI CHEST WWO CONTRAST (01/19/2023 8:41 AM CDT) Anatomical Region Laterality Modality Chest Magnetic Resonan ce 01/19/2023 8:42 AM CDT Impressions 01/19/2023 9:09 AM CDT IMPRESSION: Small circumscribed enhancing soft tissue structure measuring 0.4 x 0.7 cm in the anterior mediastinum consistent with residual or rebound thymus gland. Report dictated by Abran Farley MD (vice president quality improvement). I, Steve Chavarria MD have personally reviewed and interpreted this examination/study. 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 TECHNIQUE: MRI of the chest was performed prior to and following the uneventful administration of 16 mL of Multihance intravenous gadolinium contrast according to a mediastinal mass protocol. FINDINGS: Neck base: The thyroid is normal. No lymphadenopathy. Lungs: Clear. Heart and Pericardium: The heart is normal in size. No pericardial fluid or thickening is present. Mediastinum and Margi: There is a small 0.4 x 0.7 cm circumscribed enhancing soft tissue structure in the anterior mediastinum immediately behind the manubrium of the sternum and anterior to the brachiocephalic vein (series 20, image 40), with mild restricted diffusion consistent with residual or rebound thymus gland. No enlarged lymph nodes are present. Upper Abdomen: The visible portions of the upper abdominal organs are normal. Mild degenerative changes in the thoracic spine are noted. 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 TECHNIQUE: MRI of the chest was performed prior to and following the uneventful administration of 16 mL of Multihance intravenous gadolinium contrast according to a mediastinal mass protocol. FINDINGS: Neck base: The thyroid is normal. No lymphadenopathy. Lungs: Clear. Heart and Pericardium: The heart is normal in size. No pericardial fluid or thickening ispresent. Mediastinum and Margi: There is a small 0.4 x 0.7 cm circumscribed enhancing soft tissuestructure in the anterior mediastinum immediately behind the manubrium of thesternum and anterior to the brachiocephalic vein (series 20, image 40), withmild restricted diffusion consistent with residual or rebound thymus gland.No enlarged lymph nodes are present. Upper Abdomen: The visible portions of the upper abdominal organs are normal. Mild degenerative changes in the thoracic spine are noted. IMPRESSION: Small circumscribed enhancing soft tissue structure measuring 0.4 x 0.7cm in the anterior mediastinum consistent with residual or rebound thymus gland. Report dictated by Abran Farley MD (vice president quality improvement). Steve Hawk MD have personally reviewed and interpreted this examination/study. > Interpreting Provider: Steve Chavarria MD on 01/19/2023 9:09 AM Nik Hodgson MD MR ORDERABLES * HLA TYPING B27 (07/03/2022 8:52 AM CDT) Pathologist [facility] [place] HLA-B27 Antigen NEGATIVE NEGATIVE [facility] Comment: REPORT COMMENT: FASTING:YES Test Performed at: [facility] [address] [place] [address] DANTE LOCKHART MD 07/03/2022 8:52 AM CDT 07/03/2022 8:53 AM CDT Eduard Boggs MD LAB - CHEMISTRY NENO RAMESH Performing Organization Address [facility] Co de Phone Number [facility] [address] [place] [id number] * (ABNORMAL) HEMOGLOBIN A1C (07/03/2022 8:52 AM CDT) Pathologist [facility] [place] Hemoglobin A1c 6.1(H) <5.7 % of total Hgb [facility] Comment: For someone without known diabetes, a hemoglobin A1c value between 5.7% and 6.4% is consistent with prediabetes and should be confirmed with a follow-up test. For someone with known diabetes, a value <7% indicates that their diabetes is well controlled. A1c targets should be individualized based on duration of diabetes, age, comorbid conditions, and other considerations. This assay result is consistent with an increased risk of diabetes. Currently, no consensus exists regarding use of hemoglobin A1c for diagnosis of diabetes for children. REPORT COMMENT: FASTING:YES Test Performed at: [facility] [address] GOKUL NAJERA MD 07/03/2022 8:52 AM CDT 07/03/2022 8:53 AM CDT Eduard Boggs MD LAB - CHEMISTRY NENO RAMESH Performing Organization Address [facility] Co de Phone Number [address] [address] * (ABNORMAL) CBC WITH DIFFERENTIAL (07/03/2022 8:52 AM CDT) Pathologist [facility] [place] White Blood Cell Count 6.5 3.8 - 10.8 Thousand/ uL [facility] RBC 5.32 4.20 - 5.80 Million/u L [facility] Hemoglobin 15.8 13.2 - 17.1 g/dL [facility] Hematocrit 48.1 38.5 - 50.0 % [facility] MCV 90.4 80.0 - 100.0 fL [facility] MCH 29.7 27.0 - 33.0 pg [facility] MCHC 32.8 32.0 - 36.0 g/dL [facility] RDW 13.0 11.0 - 15.0 % [facility] Platelet Count 205 140 - 400 Thousand/ uL [facility] MPV 10.1 7.5 - 12.5 fL [facility] Neutrophil Absolute 3419 1500 - 7800 cells/uL [facility] Absolute Bands [facility] Metamyelocytes Absolute [facility] Myelocytes Absolute [facility] Absolute Prolymphocytes [facility] Lymphocytes Absolute 1853 850 - 3900 cells/uL [facility] Absolute Monocytes 624 200 - 950 cells/uL [facility] Eosinophils Absolute 546(H) 15 - 500 cells/uL [facility] Basophils Absolute 59 0 - 200 cells/uL [facility] Absolute Blasts [facility] nRBC Absolute [facility] Granulocytes % 52.6 % [facility] Band Neutrophil [facility] Metamyelocytes [facility] Myelocytes [facility] Promyelocytes [facility] Lymphocytes % 28.5 % [facility] Lymphocyte Reactive [facility] Monocytes % 9.6 % [facility] Eosinophils % 8.4 % [facility] Basophils % 0.9 % [facility] Comment: REPORT COMMENT: FASTING:YES Test Performed at: [facility] [address] [place] [address] [place] DO,MPH Blasts [facility] nRBC [facility] Comments [facility] Comment: Test Performed at: [facility] [address] [place] [address] [place]EN P[place] DO,MPH 07/03/2022 8:52 AM CDT 07/03/2022 8:53 AM CDT Eduard Boggs MD LAB - HEMATOLOGY ORD ERABLES [facility] [address] [place] [address] * (ABNORMAL) COMPREHENSIVE METABOLIC PANEL (07/03/2022 8:52 AM CDT) [facility] Glucose 131(H) 65 - 99 mg/dL [facility] Comment: Fasting reference interval For someone without known diabetes, a glucose value >125 mg/dL indicates that they may have diabetes and this should be confirmed with a follow-up test. BUN 18 7 - 25 mg/dL [facility] Creatinine 1.11 0.70 - 1.30 mg/dL [facility] eGFR by Cystatin C 79 > OR = 60 mL/min/1. 73m2 [facility] Comment: The eGFR is based on the CKD-EPI 2020 equation. To calculate the new eGFR from a previous Creatinine or Cystatin C result, go to https://www.kidney.org/professionals/ kdoqi/gfr%5Fcalculator BUN/Creatinine Ratio NOT APPLICABLE 6 - 22 (calc) [facility] Sodium 142 135 - 146 mmol/L [facility] Potassium 3.3(L) 3.5 - 5.3 mmol/L [facility] Chloride 105 98 - 110 mmol/L [facility] CO2 26 20 - 32 mmol/L [facility] Calcium 9.1 8.6 - 10.3 mg/dL [facility] Protein Total 6.8 6.1 - 8.1 g/dL [facility] Albumin 4.5 3.6 - 5.1 g/dL [facility] Globulin Total 2.3 1.9 - 3.7 g/dL (calc) [facility] Albumin/Globuli n Ratio 2.0 1.0 - 2.5 (calc) [facility] Bilirubin Total 0.5 0.2 - 1.2 mg/dL [facility] Alkaline Phosphatase 49 35 - 144 U/L [facility] AST 22 10 - 35 U/L [facility] ALT 21 9 - 46 U/L [facility] Comment: Test Performed at: [facility] [address] [place] [address] [place]EN [place] DO,MPH 07/03/2022 8:52 AM CDT 07/03/2022 8:53 AM CDT Eduard Boggs MD LAB - CHEMISTRY NENO RAMESH [facility] [address] [place] [address] * XR KNEE RIGHT 3VW (06/14/2022 2:12 PM CDT) Anatomical Region Laterality Modality Lower Extremity Radiographic Tamica ging 06/14/2022 2:07 PM CDT Impressions 06/14/2022 2:19 PM CDT IMPRESSION: 1. Right and left hands: Mild osteoarthritis at a few joints. 2. 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 3. Right and left knees: Mild osteoarthritis, greatest in the patellofemoral compartments. Small effusions. 4. Right and left feet: Very mild osteoarthritis at a few joints. 5. Sacroiliac joints: No evidence of sacroiliitis. > Interpreting Provider: Noel Jorge MD on 06/14/2022 2:19 PM Narrative 06/14/2022 2:19 PM CDT PROCEDURE: XR SI JOINTS 3VW OR MORE, XR WRIST LEFT 2VW, XR WRIST RIGHT 2VW, XR KNEE RIGHT 3VW, XR KNEE LEFT 3VW, XR FOOT LEFT 3VW OR MORE, XR FOOT RIGHT 3VW OR MORE, XR HAND RIGHT 3VW OR MORE, XR HAND LEFT 3VW OR MORE, DATE/TIME OF EXAM: 06/14/2022 2:14 PM, LOCATION [facility] INDICATION: M25.50: Polyarthralgia ADDITIONAL CLINICAL INFORMATION: Ordering Provider Reason For Exam: Please evaluate for signs of inflammatory arthropathy. Technologist Note: Additional: COMPARISON: None. TECHNIQUE: FINDINGS: Right hand: No fracture or dislocation is present. There is mild osteoarthritis at several interphalangeal joints and the third metacarpophalangeal joint. No erosions are seen. Bone density is normal. The soft tissues are normal. Left hand: No fracture or dislocation is present. There is mild osteoarthritis at several interphalangeal joints and the third metacarpophalangeal joint. No erosions are seen. Bone density is normal. The soft tissues are normal. Right wrist: No fracture or dislocation is present. There is moderate osteoarthritis at the first carpometacarpal and scaphoid trapezium trapezoid joints. No erosions are seen. Bone density is normal. The soft tissues are normal. Left wrist: No fracture or dislocation is present. There is moderate osteoarthritis at the first carpometacarpal and scaphoid trapezium trapezoid joints. A cyst is noted in the capitate. A bone island is noted in the radius. No erosions are seen. Bone density is normal. The soft tissues are normal. Right knee: No fracture or dislocation is present. There is mild osteoarthritis, greatest in the patellofemoral compartment. A small effusion is visible. There are no erosions. Left knee: No fracture or dislocation is present. There is mild osteoarthritis, greatest in the patellofemoral compartment. A small effusion is visible. There are no erosions. Right foot: No fracture or dislocation is present. There is mild osteoarthritis at the interphalangeal joint of the first toe and second toe distal interphalangeal joint. Otherwise the joint spaces are normal. There are no erosions. Bone density is normal. The soft tissues are normal. Left foot: No fracture or dislocation is seen. There is mild osteoarthritis at the first metatarsophalangeal and interphalangeal joints. A subchondral cyst is visible in the second metatarsal head. Otherwise the joint spaces are normal. No erosions are seen. Bone density is normal. The soft tissues are normal. Sacroiliac joints: There is no erosion, widening, sclerosis, narrowing, or ankylosis of either sacroiliac joint. There is no fracture. The hip joint spaces are normal. Small iliac crest and ischial tuberosity enthesophytes are visible. Procedure Note Noel Jorge MD - 06/14/2022 PROCEDURE: XR SI JOINTS 3VW OR MORE, XR WRIST LEFT 2VW, XR WRIST RIGHT 2VW, XR KNEE RIGHT 3VW, XR KNEE LEFT 3VW, XR FOOT LEFT 3VW OR MORE, XRFOOT RIGHT 3VW OR MORE, XR HAND RIGHT 3VW OR MORE, XR HAND LEFT 3VW OR MORE, DATE/TIME OF EXAM: 06/14/2022 2:14 PM, LOCATION [facility] INDICATION: M25.50: Polyarthralgia ADDITIONAL CLINICAL INFORMATION: Ordering Provider Reason For Exam: Please evaluate for signs of inflammatory arthropathy. Technologist Note: Additional: COMPARISON: None. TECHNIQUE: FINDINGS: Right hand: No fracture or dislocation is present. There is mild osteoarthritis at several interphalangeal joints and the third metacarpophalangeal joint.No erosions are seen. Bone density is normal. The soft tissues arenormal. Left hand: No fracture or dislocation is present. There is mild osteoarthritis at several interphalangeal joints and the third metacarpophalangeal joint.No erosions are seen. Bone density is normal. The soft tissues arenormal. Right wrist: No fracture or dislocation is present. There is moderate osteoarthritisat the first carpometacarpal and scaphoid trapezium trapezoid joints. No erosions are seen. Bone density is normal. The soft tissues arenormal. Left wrist: No fracture or dislocation is present. There is moderate osteoarthritisat the first carpometacarpal and scaphoid trapezium trapezoid joints. Acyst is noted in the capitate. A bone island is noted in the radius. Noerosions are seen. Bone density is normal. The soft tissues are normal. Right knee: No fracture or dislocation is present. There is mild osteoarthritis, greatest in the patellofemoral compartment. A small effusion is visible. There are no erosions. Left knee: No fracture or dislocation is present. There is mild osteoarthritis, greatest in the patellofemoral compartment. A small effusion is visible. There are no erosions. Right foot: No fracture or dislocation is present. There is mild osteoarthritis atthe interphalangeal joint of the first toe and second toe distal interphalangeal joint. Otherwise the joint spaces are normal. There areno erosions. Bone density is normal. The soft tissues are normal. Left foot: No fracture or dislocation is seen. There is mild osteoarthritis at the first metatarsophalangeal and interphalangeal joints. A subchondral cystis visible in the second metatarsal head. Otherwise the joint spaces are normal. No erosions are seen. Bone density is normal. The soft tissuesare normal. Sacroiliac joints: There is no erosion, widening, sclerosis, narrowing, or ankylosis ofeither sacroiliac joint. There is no fracture. The hip joint spaces are normal. Small iliac crest and ischial tuberosity enthesophytes are visible. IMPRESSION: 1. Right and left hands: Mild osteoarthritis at a few joints. 2. Right and left wrists: Moderate osteoarthritis at the scaphoidtrapezium trapezoid and first carpometacarpal joints. 3. Right and left knees: Mild osteoarthritis, greatest in the patellofemoral compartments. Small effusions. 4. Right and left feet: Very mild osteoarthritis at a few joints. 5. Sacroiliac joints: No evidence of sacroiliitis. > Interpreting Provider: Noel Jorge MD on 06/14/2022 2:19 PM Eduard Boggs MD DIAGNOSTIC IMAGING O RDERABLES * XR FOOT RIGHT 3VW OR MORE (06/14/2022 2:12 PM CDT) Anatomical Region Laterality Modality Ankle / Foot Radiographic Tamica ging 06/14/2022 2:07 PM CDT Impressions 06/14/2022 2:19 PM CDT IMPRESSION: 1. Right and left hands: Mild osteoarthritis at a few joints. 2. 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 3. Right and left knees: Mild osteoarthritis, greatest in the patellofemoral compartments. Small effusions. 4. Right and left feet: Very mild osteoarthritis at a few joints. 5. Sacroiliac joints: No evidence of sacroiliitis. > Interpreting Provider: Noel Jorge MD on 06/14/2022 2:19 PM Narrative 06/14/2022 2:19 PM CDT PROCEDURE: XR SI JOINTS 3VW OR MORE, XR WRIST LEFT 2VW, XR WRIST RIGHT 2VW, XR KNEE RIGHT 3VW, XR KNEE LEFT 3VW, XR FOOT LEFT 3VW OR MORE, XR FOOT RIGHT 3VW OR MORE, XR HAND RIGHT 3VW OR MORE, XR HAND LEFT 3VW OR MORE, DATE/TIME OF EXAM: 06/14/2022 2:14 PM, LOCATION [facility] INDICATION: M25.50: Polyarthralgia ADDITIONAL CLINICAL INFORMATION: Ordering Provider Reason For Exam: Please evaluate for signs of inflammatory arthropathy. Technologist Note: Additional: COMPARISON: None. TECHNIQUE: FINDINGS: Right hand: No fracture or dislocation is present. There is mild osteoarthritis at several interphalangeal joints and the third metacarpophalangeal joint. No erosions are seen. Bone density is normal. The soft tissues are normal. Left hand: No fracture or dislocation is present. There is mild osteoarthritis at several interphalangeal joints and the third metacarpophalangeal joint. No erosions are seen. Bone density is normal. The soft tissues are normal. Right wrist: No fracture or dislocation is present. There is moderate osteoarthritis at the first carpometacarpal and scaphoid trapezium trapezoid joints. No erosions are seen. Bone density is normal. The soft tissues are normal. Left wrist: No fracture or dislocation is present. There is moderate osteoarthritis at the first carpometacarpal and scaphoid trapezium trapezoid joints. A cyst is noted in the capitate. A bone island is noted in the radius. No erosions are seen. Bone density is normal. The soft tissues are normal. Right knee: No fracture or dislocation is present. There is mild osteoarthritis, greatest in the patellofemoral compartment. A small effusion is visible. There are no erosions. Left knee: No fracture or dislocation is present. There is mild osteoarthritis, greatest in the patellofemoral compartment. A small effusion is visible. There are no erosions. Right foot: No fracture or dislocation is present. There is mild osteoarthritis at the interphalangeal joint of the first toe and second toe distal interphalangeal joint. Otherwise the joint spaces are normal. There are no erosions. Bone density is normal. The soft tissues are normal. Left foot: No fracture or dislocation is seen. There is mild osteoarthritis at the first metatarsophalangeal and interphalangeal joints. A subchondral cyst is visible in the second metatarsal head. Otherwise the joint spaces are normal. No erosions are seen. Bone density is normal. The soft tissues are normal. Sacroiliac joints: There is no erosion, widening, sclerosis, narrowing, or ankylosis of either sacroiliac joint. There is no fracture. The hip joint spaces are normal. Small iliac crest and ischial tuberosity enthesophytes are visible. Procedure Note Noel Jorge MD - 06/14/2022 PROCEDURE: XR SI JOINTS 3VW OR MORE, XR WRIST LEFT 2VW, XR WRIST RIGHT 2VW, XR KNEE RIGHT 3VW, XR KNEE LEFT 3VW, XR FOOT LEFT 3VW OR MORE, XRFOOT RIGHT 3VW OR MORE, XR HAND RIGHT 3VW OR MORE, XR HAND LEFT 3VW OR MORE, DATE/TIME OF EXAM: 06/14/2022 2:14 PM, LOCATION [facility] INDICATION: M25.50: Polyarthralgia ADDITIONAL CLINICAL INFORMATION: Ordering Provider Reason For Exam: Please evaluate for signs of inflammatory arthropathy. Technologist Note: Additional: COMPARISON: None. TECHNIQUE: FINDINGS: Right hand: No fracture or dislocation is present. There is mild osteoarthritis at several interphalangeal joints and the third metacarpophalangeal joint.No erosions are seen. Bone density is normal. The soft tissues arenormal. Left hand: No fracture or dislocation is present. There is mild osteoarthritis at several interphalangeal joints and the third metacarpophalangeal joint.No erosions are seen. Bone density is normal. The soft tissues arenormal. Right wrist: No fracture or dislocation is present. There is moderate osteoarthritisat the first carpometacarpal and scaphoid trapezium trapezoid joints. No erosions are seen. Bone density is normal. The soft tissues arenormal. Left wrist: No fracture or dislocation is present. There is moderate osteoarthritisat the first carpometacarpal and scaphoid trapezium trapezoid joints. Acyst is noted in the capitate. A bone island is noted in the radius. Noerosions are seen. Bone density is normal. The soft tissues are normal. Right knee: No fracture or dislocation is present. There is mild osteoarthritis, greatest in the patellofemoral compartment. A small effusion is visible. There are no erosions. Left knee: No fracture or dislocation is present. There is mild osteoarthritis, greatest in the patellofemoral compartment. A small effusion is visible. There are no erosions. Right foot: No fracture or dislocation is present. There is mild osteoarthritis atthe interphalangeal joint of the first toe and second toe distal interphalangeal joint. Otherwise the joint spaces are normal. There areno erosions. Bone density is normal. The soft tissues are normal. Left foot: No fracture or dislocation is seen. There is mild osteoarthritis at the first metatarsophalangeal and interphalangeal joints. A subchondral cystis visible in the second metatarsal head. Otherwise the joint spaces are normal. No erosions are seen. Bone density is normal. The soft tissuesare normal. Sacroiliac joints: There is no erosion, widening, sclerosis, narrowing, or ankylosis ofeither sacroiliac joint. There is no fracture. The hip joint spaces are normal. Small iliac crest and ischial tuberosity enthesophytes are visible. IMPRESSION: 1. Right and left hands: Mild osteoarthritis at a few joints. 2. Right and left wrists: Moderate osteoarthritis at the scaphoidtrapezium trapezoid and first carpometacarpal joints. 3. Right and left knees: Mild osteoarthritis, greatest in the patellofemoral compartments. Small effusions. 4. Right and left feet: Very mild osteoarthritis at a few joints. 5. Sacroiliac joints: No evidence of sacroiliitis. > Interpreting Provider: Noel Jorge MD on 06/14/2022 2:19 PM Eduard Boggs MD DIAGNOSTIC IMAGING O RDERABLES * XR FOOT LEFT 3VW OR MORE (06/14/2022 2:12 PM CDT) Anatomical Region Laterality Modality Ankle / Foot Radiographic Tamica ging 06/14/2022 2:07 PM CDT Impressions 06/14/2022 2:19 PM CDT IMPRESSION: 1. Right and left hands: Mild osteoarthritis at a few joints. 2. 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 3. Right and left knees: Mild osteoarthritis, greatest in the patellofemoral compartments. Small effusions. 4. Right and left feet: Very mild osteoarthritis at a few joints. 5. Sacroiliac joints: No evidence of sacroiliitis. > Interpreting Provider: Noel Jorge MD on 06/14/2022 2:19 PM Narrative 06/14/2022 2:19 PM CDT PROCEDURE: XR SI JOINTS 3VW OR MORE, XR WRIST LEFT 2VW, XR WRIST RIGHT 2VW, XR KNEE RIGHT 3VW, XR KNEE LEFT 3VW, XR FOOT LEFT 3VW OR MORE, XR FOOT RIGHT 3VW OR MORE, XR HAND RIGHT 3VW OR MORE, XR HAND LEFT 3VW OR MORE, DATE/TIME OF EXAM: 06/14/2022 2:14 PM, LOCATION [facility] INDICATION: M25.50: Polyarthralgia ADDITIONAL CLINICAL INFORMATION: Ordering Provider Reason For Exam: Please evaluate for signs of inflammatory arthropathy. Technologist Note: Additional: COMPARISON: None. TECHNIQUE: FINDINGS: Right hand: No fracture or dislocation is present. There is mild osteoarthritis at several interphalangeal joints and the third metacarpophalangeal joint. No erosions are seen. Bone density is normal. The soft tissues are normal. Left hand: No fracture or dislocation is present. There is mild osteoarthritis at several interphalangeal joints and the third metacarpophalangeal joint. No erosions are seen. Bone density is normal. The soft tissues are normal. Right wrist: No fracture or dislocation is present. There is moderate osteoarthritis at the first carpometacarpal and scaphoid trapezium trapezoid joints. No erosions are seen. Bone density is normal. The soft tissues are normal. Left wrist: No fracture or dislocation is present. There is moderate osteoarthritis at the first carpometacarpal and scaphoid trapezium trapezoid joints. A cyst is noted in the capitate. A bone island is noted in the radius. No erosions are seen. Bone density is normal. The soft tissues are normal. Right knee: No fracture or dislocation is present. There is mild osteoarthritis, greatest in the patellofemoral compartment. A small effusion is visible. There are no erosions. Left knee: No fracture or dislocation is present. There is mild osteoarthritis, greatest in the patellofemoral compartment. A small effusion is visible. There are no erosions. Right foot: No fracture or dislocation is present. There is mild osteoarthritis at the interphalangeal joint of the first toe and second toe distal interphalangeal joint. Otherwise the joint spaces are normal. There are no erosions. Bone density is normal. The soft tissues are normal. Left foot: No fracture or dislocation is seen. There is mild osteoarthritis at the first metatarsophalangeal and interphalangeal joints. A subchondral cyst is visible in the second metatarsal head. Otherwise the joint spaces are normal. No erosions are seen. Bone density is normal. The soft tissues are normal. Sacroiliac joints: There is no erosion, widening, sclerosis, narrowing, or ankylosis of either sacroiliac joint. There is no fracture. The hip joint spaces are normal. Small iliac crest and ischial tuberosity enthesophytes are visible. Procedure Note Noel Jorge MD - 06/14/2022 PROCEDURE: XR SI JOINTS 3VW OR MORE, XR WRIST LEFT 2VW, XR WRIST RIGHT 2VW, XR KNEE RIGHT 3VW, XR KNEE LEFT 3VW, XR FOOT LEFT 3VW OR MORE, XRFOOT RIGHT 3VW OR MORE, XR HAND RIGHT 3VW OR MORE, XR HAND LEFT 3VW OR MORE, DATE/TIME OF EXAM: 06/14/2022 2:14 PM, LOCATION [facility] INDICATION: M25.50: Polyarthralgia ADDITIONAL CLINICAL INFORMATION: Ordering Provider Reason For Exam: Please evaluate for signs of inflammatory arthropathy. Technologist Note: Additional: COMPARISON: None. TECHNIQUE: FINDINGS: Right hand: No fracture or dislocation is present. There is mild osteoarthritis at several interphalangeal joints and the third metacarpophalangeal joint.No erosions are seen. Bone density is normal. The soft tissues arenormal. Left hand: No fracture or dislocation is present. There is mild osteoarthritis at several interphalangeal joints and the third metacarpophalangeal joint.No erosions are seen. Bone density is normal. The soft tissues arenormal. Right wrist: No fracture or dislocation is present. There is moderate osteoarthritisat the first carpometacarpal and scaphoid trapezium trapezoid joints. No erosions are seen. Bone density is normal. The soft tissues arenormal. Left wrist: No fracture or dislocation is present. There is moderate osteoarthritisat the first carpometacarpal and scaphoid trapezium trapezoid joints. Acyst is noted in the capitate. A bone island is noted in the radius. Noerosions are seen. Bone density is normal. The soft tissues are normal. Right knee: No fracture or dislocation is present. There is mild osteoarthritis, greatest in the patellofemoral compartment. A small effusion is visible. There are no erosions. Left knee: No fracture or dislocation is present. There is mild osteoarthritis, greatest in the patellofemoral compartment. A small effusion is visible. There are no erosions. Right foot: No fracture or dislocation is present. There is mild osteoarthritis atthe interphalangeal joint of the first toe and second toe distal interphalangeal joint. Otherwise the joint spaces are normal. There areno erosions. Bone density is normal. The soft tissues are normal. Left foot: No fracture or dislocation is seen. There is mild osteoarthritis at the first metatarsophalangeal and interphalangeal joints. A subchondral cystis visible in the second metatarsal head. Otherwise the joint spaces are normal. No erosions are seen. Bone density is normal. The soft tissuesare normal. Sacroiliac joints: There is no erosion, widening, sclerosis, narrowing, or ankylosis ofeither sacroiliac joint. There is no fracture. The hip joint spaces are normal. Small iliac crest and ischial tuberosity enthesophytes are visible. IMPRESSION: 1. Right and left hands: Mild osteoarthritis at a few joints. 2. Right and left wrists: Moderate osteoarthritis at the scaphoidtrapezium trapezoid and first carpometacarpal joints. 3. Right and left knees: Mild osteoarthritis, greatest in the patellofemoral compartments. Small effusions. 4. Right and left feet: Very mild osteoarthritis at a few joints. 5. Sacroiliac joints: No evidence of sacroiliitis. > Interpreting Provider: Noel Jorge MD on 06/14/2022 2:19 PM Eduard Boggs MD DIAGNOSTIC IMAGING O RDERABLES * XR KNEE LEFT 3VW (06/14/2022 2:12 PM CDT) Anatomical Region Laterality Modality Lower Extremity Radiographic Tamica ging 06/14/2022 2:07 PM CDT Impressions 06/14/2022 2:19 PM CDT IMPRESSION: 1. Right and left hands: Mild osteoarthritis at a few joints. 2. 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 3. Right and left knees: Mild osteoarthritis, greatest in the patellofemoral compartments. Small effusions. 4. Right and left feet: Very mild osteoarthritis at a few joints. 5. Sacroiliac joints: No evidence of sacroiliitis. > Interpreting Provider: Noel Jorge MD on 06/14/2022 2:19 PM Narrative 06/14/2022 2:19 PM CDT PROCEDURE: XR SI JOINTS 3VW OR MORE, XR WRIST LEFT 2VW, XR WRIST RIGHT 2VW, XR KNEE RIGHT 3VW, XR KNEE LEFT 3VW, XR FOOT LEFT 3VW OR MORE, XR FOOT RIGHT 3VW OR MORE, XR HAND RIGHT 3VW OR MORE, XR HAND LEFT 3VW OR MORE, DATE/TIME OF EXAM: 06/14/2022 2:14 PM, LOCATION [facility] INDICATION: M25.50: Polyarthralgia ADDITIONAL CLINICAL INFORMATION: Ordering Provider Reason For Exam: Please evaluate for signs of inflammatory arthropathy. Technologist Note: Additional: COMPARISON: None. TECHNIQUE: FINDINGS: Right hand: No fracture or dislocation is present. There is mild osteoarthritis at several interphalangeal joints and the third metacarpophalangeal joint. No erosions are seen. Bone density is normal. The soft tissues are normal. Left hand: No fracture or dislocation is present. There is mild osteoarthritis at several interphalangeal joints and the third metacarpophalangeal joint. No erosions are seen. Bone density is normal. The soft tissues are normal. Right wrist: No fracture or dislocation is present. There is moderate osteoarthritis at the first carpometacarpal and scaphoid trapezium trapezoid joints. No erosions are seen. Bone density is normal. The soft tissues are normal. Left wrist: No fracture or dislocation is present. There is moderate osteoarthritis at the first carpometacarpal and scaphoid trapezium trapezoid joints. A cyst is noted in the capitate. A bone island is noted in the radius. No erosions are seen. Bone density is normal. The soft tissues are normal. Right knee: No fracture or dislocation is present. There is mild osteoarthritis, greatest in the patellofemoral compartment. A small effusion is visible. There are no erosions. Left knee: No fracture or dislocation is present. There is mild osteoarthritis, greatest in the patellofemoral compartment. A small effusion is visible. There are no erosions. Right foot: No fracture or dislocation is present. There is mild osteoarthritis at the interphalangeal joint of the first toe and second toe distal interphalangeal joint. Otherwise the joint spaces are normal. There are no erosions. Bone density is normal. The soft tissues are normal. Left foot: No fracture or dislocation is seen. There is mild osteoarthritis at the first metatarsophalangeal and interphalangeal joints. A subchondral cyst is visible in the second metatarsal head. Otherwise the joint spaces are normal. No erosions are seen. Bone density is normal. The soft tissues are normal. Sacroiliac joints: There is no erosion, widening, sclerosis, narrowing, or ankylosis of either sacroiliac joint. There is no fracture. The hip joint spaces are normal. Small iliac crest and ischial tuberosity enthesophytes are visible. Procedure Note Noel Jorge MD - 06/14/2022 PROCEDURE: XR SI JOINTS 3VW OR MORE, XR WRIST LEFT 2VW, XR WRIST RIGHT 2VW, XR KNEE RIGHT 3VW, XR KNEE LEFT 3VW, XR FOOT LEFT 3VW OR MORE, XRFOOT RIGHT 3VW OR MORE, XR HAND RIGHT 3VW OR MORE, XR HAND LEFT 3VW OR MORE, DATE/TIME OF EXAM: 06/14/2022 2:14 PM, LOCATION [facility] INDICATION: M25.50: Polyarthralgia ADDITIONAL CLINICAL INFORMATION: Ordering Provider Reason For Exam: Please evaluate for signs of inflammatory arthropathy. Technologist Note: Additional: COMPARISON: None. TECHNIQUE: FINDINGS: Right hand: No fracture or dislocation is present. There is mild osteoarthritis at several interphalangeal joints and the third metacarpophalangeal joint.No erosions are seen. Bone density is normal. The soft tissues arenormal. Left hand: No fracture or dislocation is present. There is mild osteoarthritis at several interphalangeal joints and the third metacarpophalangeal joint.No erosions are seen. Bone density is normal. The soft tissues arenormal. Right wrist: No fracture or dislocation is present. There is moderate osteoarthritisat the first carpometacarpal and scaphoid trapezium trapezoid joints. No erosions are seen. Bone density is normal. The soft tissues arenormal. Left wrist: No fracture or dislocation is present. There is moderate osteoarthritisat the first carpometacarpal and scaphoid trapezium trapezoid joints. Acyst is noted in the capitate. A bone island is noted in the radius. Noerosions are seen. Bone density is normal. The soft tissues are normal. Right knee: No fracture or dislocation is present. There is mild osteoarthritis, greatest in the patellofemoral compartment. A small effusion is visible. There are no erosions. Left knee: No fracture or dislocation is present. There is mild osteoarthritis, greatest in the patellofemoral compartment. A small effusion is visible. There are no erosions. Right foot: No fracture or dislocation is present. There is mild osteoarthritis atthe interphalangeal joint of the first toe and second toe distal interphalangeal joint. Otherwise the joint spaces are normal. There areno erosions. Bone density is normal. The soft tissues are normal. Left foot: No fracture or dislocation is seen. There is mild osteoarthritis at the first metatarsophalangeal and interphalangeal joints. A subchondral cystis visible in the second metatarsal head. Otherwise the joint spaces are normal. No erosions are seen. Bone density is normal. The soft tissuesare normal. Sacroiliac joints: There is no erosion, widening, sclerosis, narrowing, or ankylosis ofeither sacroiliac joint. There is no fracture. The hip joint spaces are normal. Small iliac crest and ischial tuberosity enthesophytes are visible. IMPRESSION: 1. Right and left hands: Mild osteoarthritis at a few joints. 2. Right and left wrists: Moderate osteoarthritis at the scaphoidtrapezium trapezoid and first carpometacarpal joints. 3. Right and left knees: Mild osteoarthritis, greatest in the patellofemoral compartments. Small effusions. 4. Right and left feet: Very mild osteoarthritis at a few joints. 5. Sacroiliac joints: No evidence of sacroiliitis. > Interpreting Provider: Noel Jorge MD on 06/14/2022 2:19 PM Eduard Boggs MD DIAGNOSTIC IMAGING O RDERABLES * XR HAND RIGHT 3VW OR MORE (06/14/2022 2:12 PM CDT) Anatomical Region Laterality Modality Wrist / Hand Radiographic Tamica ging 06/14/2022 2:07 PM CDT Impressions 06/14/2022 2:19 PM CDT IMPRESSION: 1. Right and left hands: Mild osteoarthritis at a few joints. 2. 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 3. Right and left knees: Mild osteoarthritis, greatest in the patellofemoral compartments. Small effusions. 4. Right and left feet: Very mild osteoarthritis at a few joints. 5. Sacroiliac joints: No evidence of sacroiliitis. > Interpreting Provider: Noel Jorge MD on 06/14/2022 2:19 PM Narrative 06/14/2022 2:19 PM CDT PROCEDURE: XR SI JOINTS 3VW OR MORE, XR WRIST LEFT 2VW, XR WRIST RIGHT 2VW, XR KNEE RIGHT 3VW, XR KNEE LEFT 3VW, XR FOOT LEFT 3VW OR MORE, XR FOOT RIGHT 3VW OR MORE, XR HAND RIGHT 3VW OR MORE, XR HAND LEFT 3VW OR MORE, DATE/TIME OF EXAM: 06/14/2022 2:14 PM, LOCATION [facility] INDICATION: M25.50: Polyarthralgia ADDITIONAL CLINICAL INFORMATION: Ordering Provider Reason For Exam: Please evaluate for signs of inflammatory arthropathy. Technologist Note: Additional: COMPARISON: None. TECHNIQUE: FINDINGS: Right hand: No fracture or dislocation is present. There is mild osteoarthritis at several interphalangeal joints and the third metacarpophalangeal joint. No erosions are seen. Bone density is normal. The soft tissues are normal. Left hand: No fracture or dislocation is present. There is mild osteoarthritis at several interphalangeal joints and the third metacarpophalangeal joint. No erosions are seen. Bone density is normal. The soft tissues are normal. Right wrist: No fracture or dislocation is present. There is moderate osteoarthritis at the first carpometacarpal and scaphoid trapezium trapezoid joints. No erosions are seen. Bone density is normal. The soft tissues are normal. Left wrist: No fracture or dislocation is present. There is moderate osteoarthritis at the first carpometacarpal and scaphoid trapezium trapezoid joints. A cyst is noted in the capitate. A bone island is noted in the radius. No erosions are seen. Bone density is normal. The soft tissues are normal. Right knee: No fracture or dislocation is present. There is mild osteoarthritis, greatest in the patellofemoral compartment. A small effusion is visible. There are no erosions. Left knee: No fracture or dislocation is present. There is mild osteoarthritis, greatest in the patellofemoral compartment. A small effusion is visible. There are no erosions. Right foot: No fracture or dislocation is present. There is mild osteoarthritis at the interphalangeal joint of the first toe and second toe distal interphalangeal joint. Otherwise the joint spaces are normal. There are no erosions. Bone density is normal. The soft tissues are normal. Left foot: No fracture or dislocation is seen. There is mild osteoarthritis at the first metatarsophalangeal and interphalangeal joints. A subchondral cyst is visible in the second metatarsal head. Otherwise the joint spaces are normal. No erosions are seen. Bone density is normal. The soft tissues are normal. Sacroiliac joints: There is no erosion, widening, sclerosis, narrowing, or ankylosis of either sacroiliac joint. There is no fracture. The hip joint spaces are normal. Small iliac crest and ischial tuberosity enthesophytes are visible. Procedure Note Noel Jorge MD - 06/14/2022 PROCEDURE: XR SI JOINTS 3VW OR MORE, XR WRIST LEFT 2VW, XR WRIST RIGHT 2VW, XR KNEE RIGHT 3VW, XR KNEE LEFT 3VW, XR FOOT LEFT 3VW OR MORE, XRFOOT RIGHT 3VW OR MORE, XR HAND RIGHT 3VW OR MORE, XR HAND LEFT 3VW OR MORE, DATE/TIME OF EXAM: 06/14/2022 2:14 PM, LOCATION [facility] INDICATION: M25.50: Polyarthralgia ADDITIONAL CLINICAL INFORMATION: Ordering Provider Reason For Exam: Please evaluate for signs of inflammatory arthropathy. Technologist Note: Additional: COMPARISON: None. TECHNIQUE: FINDINGS: Right hand: No fracture or dislocation is present. There is mild osteoarthritis at several interphalangeal joints and the third metacarpophalangeal joint.No erosions are seen. Bone density is normal. The soft tissues arenormal. Left hand: No fracture or dislocation is present. There is mild osteoarthritis at several interphalangeal joints and the third metacarpophalangeal joint.No erosions are seen. Bone density is normal. The soft tissues arenormal. Right wrist: No fracture or dislocation is present. There is moderate osteoarthritisat the first carpometacarpal and scaphoid trapezium trapezoid joints. No erosions are seen. Bone density is normal. The soft tissues arenormal. Left wrist: No fracture or dislocation is present. There is moderate osteoarthritisat the first carpometacarpal and scaphoid trapezium trapezoid joints. Acyst is noted in the capitate. A bone island is noted in the radius. Noerosions are seen. Bone density is normal. The soft tissues are normal. Right knee: No fracture or dislocation is present. There is mild osteoarthritis, greatest in the patellofemoral compartment. A small effusion is visible. There are no erosions. Left knee: No fracture or dislocation is present. There is mild osteoarthritis, greatest in the patellofemoral compartment. A small effusion is visible. There are no erosions. Right foot: No fracture or dislocation is present. There is mild osteoarthritis atthe interphalangeal joint of the first toe and second toe distal interphalangeal joint. Otherwise the joint spaces are normal. There areno erosions. Bone density is normal. The soft tissues are normal. Left foot: No fracture or dislocation is seen. There is mild osteoarthritis at the first metatarsophalangeal and interphalangeal joints. A subchondral cystis visible in the second metatarsal head. Otherwise the joint spaces are normal. No erosions are seen. Bone density is normal. The soft tissuesare normal. Sacroiliac joints: There is no erosion, widening, sclerosis, narrowing, or ankylosis ofeither sacroiliac joint. There is no fracture. The hip joint spaces are normal. Small iliac crest and ischial tuberosity enthesophytes are visible. IMPRESSION: 1. Right and left hands: Mild osteoarthritis at a few joints. 2. Right and left wrists: Moderate osteoarthritis at the scaphoidtrapezium trapezoid and first carpometacarpal joints. 3. Right and left knees: Mild osteoarthritis, greatest in the patellofemoral compartments. Small effusions. 4. Right and left feet: Very mild osteoarthritis at a few joints. 5. Sacroiliac joints: No evidence of sacroiliitis. > Interpreting Provider: Noel Jorge MD on 06/14/2022 2:19 PM Eduard Boggs MD DIAGNOSTIC IMAGING O RDERABLES * XR HAND LEFT 3VW OR MORE (06/14/2022 2:12 PM CDT) Anatomical Region Laterality Modality Wrist / Hand Radiographic Tamica ging 06/14/2022 2:07 PM CDT Impressions 06/14/2022 2:19 PM CDT IMPRESSION: 1. Right and left hands: Mild osteoarthritis at a few joints. 2. 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 3. Right and left knees: Mild osteoarthritis, greatest in the patellofemoral compartments. Small effusions. 4. Right and left feet: Very mild osteoarthritis at a few joints. 5. Sacroiliac joints: No evidence of sacroiliitis. > Interpreting Provider: Noel Jorge MD on 06/14/2022 2:19 PM Narrative 06/14/2022 2:19 PM CDT PROCEDURE: XR SI JOINTS 3VW OR MORE, XR WRIST LEFT 2VW, XR WRIST RIGHT 2VW, XR KNEE RIGHT 3VW, XR KNEE LEFT 3VW, XR FOOT LEFT 3VW OR MORE, XR FOOT RIGHT 3VW OR MORE, XR HAND RIGHT 3VW OR MORE, XR HAND LEFT 3VW OR MORE, DATE/TIME OF EXAM: 06/14/2022 2:14 PM, LOCATION [facility] INDICATION: M25.50: Polyarthralgia ADDITIONAL CLINICAL INFORMATION: Ordering Provider Reason For Exam: Please evaluate for signs of inflammatory arthropathy. Technologist Note: Additional: COMPARISON: None. TECHNIQUE: FINDINGS: Right hand: No fracture or dislocation is present. There is mild osteoarthritis at several interphalangeal joints and the third metacarpophalangeal joint. No erosions are seen. Bone density is normal. The soft tissues are normal. Left hand: No fracture or dislocation is present. There is mild osteoarthritis at several interphalangeal joints and the third metacarpophalangeal joint. No erosions are seen. Bone density is normal. The soft tissues are normal. Right wrist: No fracture or dislocation is present. There is moderate osteoarthritis at the first carpometacarpal and scaphoid trapezium trapezoid joints. No erosions are seen. Bone density is normal. The soft tissues are normal. Left wrist: No fracture or dislocation is present. There is moderate osteoarthritis at the first carpometacarpal and scaphoid trapezium trapezoid joints. A cyst is noted in the capitate. A bone island is noted in the radius. No erosions are seen. Bone density is normal. The soft tissues are normal. Right knee: No fracture or dislocation is present. There is mild osteoarthritis, greatest in the patellofemoral compartment. A small effusion is visible. There are no erosions. Left knee: No fracture or dislocation is present. There is mild osteoarthritis, greatest in the patellofemoral compartment. A small effusion is visible. There are no erosions. Right foot: No fracture or dislocation is present. There is mild osteoarthritis at the interphalangeal joint of the first toe and second toe distal interphalangeal joint. Otherwise the joint spaces are normal. There are no erosions. Bone density is normal. The soft tissues are normal. Left foot: No fracture or dislocation is seen. There is mild osteoarthritis at the first metatarsophalangeal and interphalangeal joints. A subchondral cyst is visible in the second metatarsal head. Otherwise the joint spaces are normal. No erosions are seen. Bone density is normal. The soft tissues are normal. Sacroiliac joints: There is no erosion, widening, sclerosis, narrowing, or ankylosis of either sacroiliac joint. There is no fracture. The hip joint spaces are normal. Small iliac crest and ischial tuberosity enthesophytes are visible. Procedure Note Noel Jorge MD - 06/14/2022 PROCEDURE: XR SI JOINTS 3VW OR MORE, XR WRIST LEFT 2VW, XR WRIST RIGHT 2VW, XR KNEE RIGHT 3VW, XR KNEE LEFT 3VW, XR FOOT LEFT 3VW OR MORE, XRFOOT RIGHT 3VW OR MORE, XR HAND RIGHT 3VW OR MORE, XR HAND LEFT 3VW OR MORE, DATE/TIME OF EXAM: 06/14/2022 2:14 PM, LOCATION [facility] INDICATION: M25.50: Polyarthralgia ADDITIONAL CLINICAL INFORMATION: Ordering Provider Reason For Exam: Please evaluate for signs of inflammatory arthropathy. Technologist Note: Additional: COMPARISON: None. TECHNIQUE: FINDINGS: Right hand: No fracture or dislocation is present. There is mild osteoarthritis at several interphalangeal joints and the third metacarpophalangeal joint.No erosions are seen. Bone density is normal. The soft tissues arenormal. Left hand: No fracture or dislocation is present. There is mild osteoarthritis at several interphalangeal joints and the third metacarpophalangeal joint.No erosions are seen. Bone density is normal. The soft tissues arenormal. Right wrist: No fracture or dislocation is present. There is moderate osteoarthritisat the first carpometacarpal and scaphoid trapezium trapezoid joints. No erosions are seen. Bone density is normal. The soft tissues arenormal. Left wrist: No fracture or dislocation is present. There is moderate osteoarthritisat the first carpometacarpal and scaphoid trapezium trapezoid joints. Acyst is noted in the capitate. A bone island is noted in the radius. Noerosions are seen. Bone density is normal. The soft tissues are normal. Right knee: No fracture or dislocation is present. There is mild osteoarthritis, greatest in the patellofemoral compartment. A small effusion is visible. There are no erosions. Left knee: No fracture or dislocation is present. There is mild osteoarthritis, greatest in the patellofemoral compartment. A small effusion is visible. There are no erosions. Right foot: No fracture or dislocation is present. There is mild osteoarthritis atthe interphalangeal joint of the first toe and second toe distal interphalangeal joint. Otherwise the joint spaces are normal. There areno erosions. Bone density is normal. The soft tissues are normal. Left foot: No fracture or dislocation is seen. There is mild osteoarthritis at the first metatarsophalangeal and interphalangeal joints. A subchondral cystis visible in the second metatarsal head. Otherwise the joint spaces are normal. No erosions are seen. Bone density is normal. The soft tissuesare normal. Sacroiliac joints: There is no erosion, widening, sclerosis, narrowing, or ankylosis ofeither sacroiliac joint. There is no fracture. The hip joint spaces are normal. Small iliac crest and ischial tuberosity enthesophytes are visible. IMPRESSION: 1. Right and left hands: Mild osteoarthritis at a few joints. 2. Right and left wrists: Moderate osteoarthritis at the scaphoidtrapezium trapezoid and first carpometacarpal joints. 3. Right and left knees: Mild osteoarthritis, greatest in the patellofemoral compartments. Small effusions. 4. Right and left feet: Very mild osteoarthritis at a few joints. 5. Sacroiliac joints: No evidence of sacroiliitis. > Interpreting Provider: Noel Jorge MD on 06/14/2022 2:19 PM Eduard Boggs MD DIAGNOSTIC IMAGING O RDERABLES * XR WRIST RIGHT 2VW (06/14/2022 2:12 PM CDT) Anatomical Region Laterality Modality Wrist / Hand Radiographic Tamica ging 06/14/2022 2:07 PM CDT Impressions 06/14/2022 2:19 PM CDT IMPRESSION: 1. Right and left hands: Mild osteoarthritis at a few joints. 2. 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 3. Right and left knees: Mild osteoarthritis, greatest in the patellofemoral compartments. Small effusions. 4. Right and left feet: Very mild osteoarthritis at a few joints. 5. Sacroiliac joints: No evidence of sacroiliitis. > Interpreting Provider: Noel Jorge MD on 06/14/2022 2:19 PM Narrative 06/14/2022 2:19 PM CDT PROCEDURE: XR SI JOINTS 3VW OR MORE, XR WRIST LEFT 2VW, XR WRIST RIGHT 2VW, XR KNEE RIGHT 3VW, XR KNEE LEFT 3VW, XR FOOT LEFT 3VW OR MORE, XR FOOT RIGHT 3VW OR MORE, XR HAND RIGHT 3VW OR MORE, XR HAND LEFT 3VW OR MORE, DATE/TIME OF EXAM: 06/14/2022 2:14 PM, LOCATION [facility] INDICATION: M25.50: Polyarthralgia ADDITIONAL CLINICAL INFORMATION: Ordering Provider Reason For Exam: Please evaluate for signs of inflammatory arthropathy. Technologist Note: Additional: COMPARISON: None. TECHNIQUE: FINDINGS: Right hand: No fracture or dislocation is present. There is mild osteoarthritis at several interphalangeal joints and the third metacarpophalangeal joint. No erosions are seen. Bone density is normal. The soft tissues are normal. Left hand: No fracture or dislocation is present. There is mild osteoarthritis at several interphalangeal joints and the third metacarpophalangeal joint. No erosions are seen. Bone density is normal. The soft tissues are normal. Right wrist: No fracture or dislocation is present. There is moderate osteoarthritis at the first carpometacarpal and scaphoid trapezium trapezoid joints. No erosions are seen. Bone density is normal. The soft tissues are normal. Left wrist: No fracture or dislocation is present. There is moderate osteoarthritis at the first carpometacarpal and scaphoid trapezium trapezoid joints. A cyst is noted in the capitate. A bone island is noted in the radius. No erosions are seen. Bone density is normal. The soft tissues are normal. Right knee: No fracture or dislocation is present. There is mild osteoarthritis, greatest in the patellofemoral compartment. A small effusion is visible. There are no erosions. Left knee: No fracture or dislocation is present. There is mild osteoarthritis, greatest in the patellofemoral compartment. A small effusion is visible. There are no erosions. Right foot: No fracture or dislocation is present. There is mild osteoarthritis at the interphalangeal joint of the first toe and second toe distal interphalangeal joint. Otherwise the joint spaces are normal. There are no erosions. Bone density is normal. The soft tissues are normal. Left foot: No fracture or dislocation is seen. There is mild osteoarthritis at the first metatarsophalangeal and interphalangeal joints. A subchondral cyst is visible in the second metatarsal head. Otherwise the joint spaces are normal. No erosions are seen. Bone density is normal. The soft tissues are normal. Sacroiliac joints: There is no erosion, widening, sclerosis, narrowing, or ankylosis of either sacroiliac joint. There is no fracture. The hip joint spaces are normal. Small iliac crest and ischial tuberosity enthesophytes are visible. Procedure Note Noel Jorge MD - 06/14/2022 PROCEDURE: XR SI JOINTS 3VW OR MORE, XR WRIST LEFT 2VW, XR WRIST RIGHT 2VW, XR KNEE RIGHT 3VW, XR KNEE LEFT 3VW, XR FOOT LEFT 3VW OR MORE, XRFOOT RIGHT 3VW OR MORE, XR HAND RIGHT 3VW OR MORE, XR HAND LEFT 3VW OR MORE, DATE/TIME OF EXAM: 06/14/2022 2:14 PM, LOCATION [facility] INDICATION: M25.50: Polyarthralgia ADDITIONAL CLINICAL INFORMATION: Ordering Provider Reason For Exam: Please evaluate for signs of inflammatory arthropathy. Technologist Note: Additional: COMPARISON: None. TECHNIQUE: FINDINGS: Right hand: No fracture or dislocation is present. There is mild osteoarthritis at several interphalangeal joints and the third metacarpophalangeal joint.No erosions are seen. Bone density is normal. The soft tissues arenormal. Left hand: No fracture or dislocation is present. There is mild osteoarthritis at several interphalangeal joints and the third metacarpophalangeal joint.No erosions are seen. Bone density is normal. The soft tissues arenormal. Right wrist: No fracture or dislocation is present. There is moderate osteoarthritisat the first carpometacarpal and scaphoid trapezium trapezoid joints. No erosions are seen. Bone density is normal. The soft tissues arenormal. Left wrist: No fracture or dislocation is present. There is moderate osteoarthritisat the first carpometacarpal and scaphoid trapezium trapezoid joints. Acyst is noted in the capitate. A bone island is noted in the radius. Noerosions are seen. Bone density is normal. The soft tissues are normal. Right knee: No fracture or dislocation is present. There is mild osteoarthritis, greatest in the patellofemoral compartment. A small effusion is visible. There are no erosions. Left knee: No fracture or dislocation is present. There is mild osteoarthritis, greatest in the patellofemoral compartment. A small effusion is visible. There are no erosions. Right foot: No fracture or dislocation is present. There is mild osteoarthritis atthe interphalangeal joint of the first toe and second toe distal interphalangeal joint. Otherwise the joint spaces are normal. There areno erosions. Bone density is normal. The soft tissues are normal. Left foot: No fracture or dislocation is seen. There is mild osteoarthritis at the first metatarsophalangeal and interphalangeal joints. A subchondral cystis visible in the second metatarsal head. Otherwise the joint spaces are normal. No erosions are seen. Bone density is normal. The soft tissuesare normal. Sacroiliac joints: There is no erosion, widening, sclerosis, narrowing, or ankylosis ofeither sacroiliac joint. There is no fracture. The hip joint spaces are normal. Small iliac crest and ischial tuberosity enthesophytes are visible. IMPRESSION: 1. Right and left hands: Mild osteoarthritis at a few joints. 2. Right and left wrists: Moderate osteoarthritis at the scaphoidtrapezium trapezoid and first carpometacarpal joints. 3. Right and left knees: Mild osteoarthritis, greatest in the patellofemoral compartments. Small effusions. 4. Right and left feet: Very mild osteoarthritis at a few joints. 5. Sacroiliac joints: No evidence of sacroiliitis. > Interpreting Provider: Noel Jorge MD on 06/14/2022 2:19 PM Eduard Boggs MD DIAGNOSTIC IMAGING O RDERABLES * XR WRIST LEFT 2VW (06/14/2022 2:12 PM CDT) Anatomical Region Laterality Modality Wrist / Hand Radiographic Tamica ging 06/14/2022 2:07 PM CDT Impressions 06/14/2022 2:19 PM CDT IMPRESSION: 1. Right and left hands: Mild osteoarthritis at a few joints. 2. 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 3. Right and left knees: Mild osteoarthritis, greatest in the patellofemoral compartments. Small effusions. 4. Right and left feet: Very mild osteoarthritis at a few joints. 5. Sacroiliac joints: No evidence of sacroiliitis. > Interpreting Provider: Noel Jorge MD on 06/14/2022 2:19 PM Narrative 06/14/2022 2:19 PM CDT PROCEDURE: XR SI JOINTS 3VW OR MORE, XR WRIST LEFT 2VW, XR WRIST RIGHT 2VW, XR KNEE RIGHT 3VW, XR KNEE LEFT 3VW, XR FOOT LEFT 3VW OR MORE, XR FOOT RIGHT 3VW OR MORE, XR HAND RIGHT 3VW OR MORE, XR HAND LEFT 3VW OR MORE, DATE/TIME OF EXAM: 06/14/2022 2:14 PM, LOCATION [facility] INDICATION: M25.50: Polyarthralgia ADDITIONAL CLINICAL INFORMATION: Ordering Provider Reason For Exam: Please evaluate for signs of inflammatory arthropathy. Technologist Note: Additional: COMPARISON: None. TECHNIQUE: FINDINGS: Right hand: No fracture or dislocation is present. There is mild osteoarthritis at several interphalangeal joints and the third metacarpophalangeal joint. No erosions are seen. Bone density is normal. The soft tissues are normal. Left hand: No fracture or dislocation is present. There is mild osteoarthritis at several interphalangeal joints and the third metacarpophalangeal joint. No erosions are seen. Bone density is normal. The soft tissues are normal. Right wrist: No fracture or dislocation is present. There is moderate osteoarthritis at the first carpometacarpal and scaphoid trapezium trapezoid joints. No erosions are seen. Bone density is normal. The soft tissues are normal. Left wrist: No fracture or dislocation is present. There is moderate osteoarthritis at the first carpometacarpal and scaphoid trapezium trapezoid joints. A cyst is noted in the capitate. A bone island is noted in the radius. No erosions are seen. Bone density is normal. The soft tissues are normal. Right knee: No fracture or dislocation is present. There is mild osteoarthritis, greatest in the patellofemoral compartment. A small effusion is visible. There are no erosions. Left knee: No fracture or dislocation is present. There is mild osteoarthritis, greatest in the patellofemoral compartment. A small effusion is visible. There are no erosions. Right foot: No fracture or dislocation is present. There is mild osteoarthritis at the interphalangeal joint of the first toe and second toe distal interphalangeal joint. Otherwise the joint spaces are normal. There are no erosions. Bone density is normal. The soft tissues are normal. Left foot: No fracture or dislocation is seen. There is mild osteoarthritis at the first metatarsophalangeal and interphalangeal joints. A subchondral cyst is visible in the second metatarsal head. Otherwise the joint spaces are normal. No erosions are seen. Bone density is normal. The soft tissues are normal. Sacroiliac joints: There is no erosion, widening, sclerosis, narrowing, or ankylosis of either sacroiliac joint. There is no fracture. The hip joint spaces are normal. Small iliac crest and ischial tuberosity enthesophytes are visible. Procedure Note Noel Jorge MD - 06/14/2022 PROCEDURE: XR SI JOINTS 3VW OR MORE, XR WRIST LEFT 2VW, XR WRIST RIGHT 2VW, XR KNEE RIGHT 3VW, XR KNEE LEFT 3VW, XR FOOT LEFT 3VW OR MORE, XRFOOT RIGHT 3VW OR MORE, XR HAND RIGHT 3VW OR MORE, XR HAND LEFT 3VW OR MORE, DATE/TIME OF EXAM: 06/14/2022 2:14 PM, LOCATION [facility] INDICATION: M25.50: Polyarthralgia ADDITIONAL CLINICAL INFORMATION: Ordering Provider Reason For Exam: Please evaluate for signs of inflammatory arthropathy. Technologist Note: Additional: COMPARISON: None. TECHNIQUE: FINDINGS: Right hand: No fracture or dislocation is present. There is mild osteoarthritis at several interphalangeal joints and the third metacarpophalangeal joint.No erosions are seen. Bone density is normal. The soft tissues arenormal. Left hand: No fracture or dislocation is present. There is mild osteoarthritis at several interphalangeal joints and the third metacarpophalangeal joint.No erosions are seen. Bone density is normal. The soft tissues arenormal. Right wrist: No fracture or dislocation is present. There is moderate osteoarthritisat the first carpometacarpal and scaphoid trapezium trapezoid joints. No erosions are seen. Bone density is normal. The soft tissues arenormal. Left wrist: No fracture or dislocation is present. There is moderate osteoarthritisat the first carpometacarpal and scaphoid trapezium trapezoid joints. Acyst is noted in the capitate. A bone island is noted in the radius. Noerosions are seen. Bone density is normal. The soft tissues are normal. Right knee: No fracture or dislocation is present. There is mild osteoarthritis, greatest in the patellofemoral compartment. A small effusion is visible. There are no erosions. Left knee: No fracture or dislocation is present. There is mild osteoarthritis, greatest in the patellofemoral compartment. A small effusion is visible. There are no erosions. Right foot: No fracture or dislocation is present. There is mild osteoarthritis atthe interphalangeal joint of the first toe and second toe distal interphalangeal joint. Otherwise the joint spaces are normal. There areno erosions. Bone density is normal. The soft tissues are normal. Left foot: No fracture or dislocation is seen. There is mild osteoarthritis at the first metatarsophalangeal and interphalangeal joints. A subchondral cystis visible in the second metatarsal head. Otherwise the joint spaces are normal. No erosions are seen. Bone density is normal. The soft tissuesare normal. Sacroiliac joints: There is no erosion, widening, sclerosis, narrowing, or ankylosis ofeither sacroiliac joint. There is no fracture. The hip joint spaces are normal. Small iliac crest and ischial tuberosity enthesophytes are visible. IMPRESSION: 1. Right and left hands: Mild osteoarthritis at a few joints. 2. Right and left wrists: Moderate osteoarthritis at the scaphoidtrapezium trapezoid and first carpometacarpal joints. 3. Right and left knees: Mild osteoarthritis, greatest in the patellofemoral compartments. Small effusions. 4. Right and left feet: Very mild osteoarthritis at a few joints. 5. Sacroiliac joints: No evidence of sacroiliitis. > Interpreting Provider: Noel Jorge MD on 06/14/2022 2:19 PM Eduard Boggs MD DIAGNOSTIC IMAGING O RDERABLES * XR SI JOINTS 3VW OR MORE (06/14/2022 2:12 PM CDT) Anatomical Region Laterality Modality Pelvis, Lower Extremity [facility] 06/14/2022 2:07 PM CDT Impressions 06/14/2022 2:19 PM CDT IMPRESSION: 1. Right and left hands: Mild osteoarthritis at a few joints. 2. 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 3. Right and left knees: Mild osteoarthritis, greatest in the patellofemoral compartments. Small effusions. 4. Right and left feet: Very mild osteoarthritis at a few joints. 5. Sacroiliac joints: No evidence of sacroiliitis. > Interpreting Provider: Noel Jorge MD on 06/14/2022 2:19 PM Narrative 06/14/2022 2:19 PM CDT PROCEDURE: XR SI JOINTS 3VW OR MORE, XR WRIST LEFT 2VW, XR WRIST RIGHT 2VW, XR KNEE RIGHT 3VW, XR KNEE LEFT 3VW, XR FOOT LEFT 3VW OR MORE, XR FOOT RIGHT 3VW OR MORE, XR HAND RIGHT 3VW OR MORE, XR HAND LEFT 3VW OR MORE, DATE/TIME OF EXAM: 06/14/2022 2:14 PM, LOCATION [facility] INDICATION: M25.50: Polyarthralgia ADDITIONAL CLINICAL INFORMATION: Ordering Provider Reason For Exam: Please evaluate for signs of inflammatory arthropathy. Technologist Note: Additional: COMPARISON: None. TECHNIQUE: FINDINGS: Right hand: No fracture or dislocation is present. There is mild osteoarthritis at several interphalangeal joints and the third metacarpophalangeal joint. No erosions are seen. Bone density is normal. The soft tissues are normal. Left hand: No fracture or dislocation is present. There is mild osteoarthritis at several interphalangeal joints and the third metacarpophalangeal joint. No erosions are seen. Bone density is normal. The soft tissues are normal. Right wrist: No fracture or dislocation is present. There is moderate osteoarthritis at the first carpometacarpal and scaphoid trapezium trapezoid joints. No erosions are seen. Bone density is normal. The soft tissues are normal. Left wrist: No fracture or dislocation is present. There is moderate osteoarthritis at the first carpometacarpal and scaphoid trapezium trapezoid joints. A cyst is noted in the capitate. A bone island is noted in the radius. No erosions are seen. Bone density is normal. The soft tissues are normal. Right knee: No fracture or dislocation is present. There is mild osteoarthritis, greatest in the patellofemoral compartment. A small effusion is visible. There are no erosions. Left knee: No fracture or dislocation is present. There is mild osteoarthritis, greatest in the patellofemoral compartment. A small effusion is visible. There are no erosions. Right foot: No fracture or dislocation is present. There is mild osteoarthritis at the interphalangeal joint of the first toe and second toe distal interphalangeal joint. Otherwise the joint spaces are normal. There are no erosions. Bone density is normal. The soft tissues are normal. Left foot: No fracture or dislocation is seen. There is mild osteoarthritis at the first metatarsophalangeal and interphalangeal joints. A subchondral cyst is visible in the second metatarsal head. Otherwise the joint spaces are normal. No erosions are seen. Bone density is normal. The soft tissues are normal. Sacroiliac joints: There is no erosion, widening, sclerosis, narrowing, or ankylosis of either sacroiliac joint. There is no fracture. The hip joint spaces are normal. Small iliac crest and ischial tuberosity enthesophytes are visible. Procedure Note Noel Jorge MD - 06/14/2022 PROCEDURE: XR SI JOINTS 3VW OR MORE, XR WRIST LEFT 2VW, XR WRIST RIGHT 2VW, XR KNEE RIGHT 3VW, XR KNEE LEFT 3VW, XR FOOT LEFT 3VW OR MORE, XRFOOT RIGHT 3VW OR MORE, XR HAND RIGHT 3VW OR MORE, XR HAND LEFT 3VW OR MORE, DATE/TIME OF EXAM: 06/14/2022 2:14 PM, LOCATION [facility] INDICATION: M25.50: Polyarthralgia ADDITIONAL CLINICAL INFORMATION: Ordering Provider Reason For Exam: Please evaluate for signs of inflammatory arthropathy. Technologist Note: Additional: COMPARISON: None. TECHNIQUE: FINDINGS: Right hand: No fracture or dislocation is present. There is mild osteoarthritis at several interphalangeal joints and the third metacarpophalangeal joint.No erosions are seen. Bone density is normal. The soft tissues arenormal. Left hand: No fracture or dislocation is present. There is mild osteoarthritis at several interphalangeal joints and the third metacarpophalangeal joint.No erosions are seen. Bone density is normal. The soft tissues arenormal. Right wrist: No fracture or dislocation is present. There is moderate osteoarthritisat the first carpometacarpal and scaphoid trapezium trapezoid joints. No erosions are seen. Bone density is normal. The soft tissues arenormal. Left wrist: No fracture or dislocation is present. There is moderate osteoarthritisat the first carpometacarpal and scaphoid trapezium trapezoid joints. Acyst is noted in the capitate. A bone island is noted in the radius. Noerosions are seen. Bone density is normal. The soft tissues are normal. Right knee: No fracture or dislocation is present. There is mild osteoarthritis, greatest in the patellofemoral compartment. A small effusion is visible. There are no erosions. Left knee: No fracture or dislocation is present. There is mild osteoarthritis, greatest in the patellofemoral compartment. A small effusion is visible. There are no erosions. Right foot: No fracture or dislocation is present. There is mild osteoarthritis atthe interphalangeal joint of the first toe and second toe distal interphalangeal joint. Otherwise the joint spaces are normal. There areno erosions. Bone density is normal. The soft tissues are normal. Left foot: No fracture or dislocation is seen. There is mild osteoarthritis at the first metatarsophalangeal and interphalangeal joints. A subchondral cystis visible in the second metatarsal head. Otherwise the joint spaces are normal. No erosions are seen. Bone density is normal. The soft tissuesare normal. Sacroiliac joints: There is no erosion, widening, sclerosis, narrowing, or ankylosis ofeither sacroiliac joint. There is no fracture. The hip joint spaces are normal. Small iliac crest and ischial tuberosity enthesophytes are visible. IMPRESSION: 1. Right and left hands: Mild osteoarthritis at a few joints. 2. Right and left wrists: Moderate osteoarthritis at the scaphoidtrapezium trapezoid and first carpometacarpal joints. 3. Right and left knees: Mild osteoarthritis, greatest in the patellofemoral compartments. Small effusions. 4. Right and left feet: Very mild osteoarthritis at a few joints. 5. Sacroiliac joints: No evidence of sacroiliitis. > Interpreting Provider: Noel Jorge MD on 06/14/2022 2:19 PM Eduard Boggs MD DIAGNOSTIC IMAGING O RDERABLES * PATHOLOGY TISSUE FOR DERMATOLOGY (03/20/2014 12:00 AM CDT) Result CASE: [id number] PATIENT: CHANTELLE CONTEH PATHOLOGIC DIAGNOSIS: Right posterior shoulder: SEBORRHEIC KERATOSIS, IRRITATED CLINICAL DATA: SK. GROSS DESCRIPTION: Received is one formalin filled container labeled with the patient's name and designated right posterior shoulder. The specimen consists of a shave biopsy measuring 15x9x1 mm. Jar 0. MICROSCOPIC DESCRIPTION: There is acanthosis consisting of fairly uniform squamous cells with eosinophilic cytoplasm and squamous eddies. Electronically signed out by Andria Shea M.D. 03/24/2014 12:37:40PM [facility] Comment: Performed at: Dermatopathology Laboratory [facility] Department of Dermatology [address] [place] [address] 5th [place] [address] Phone number: [phone] FAX: [phone] 03/20/2014 03/23/2014 Deniz Duff LAB - PATHOLOGY/CYTO LOGY ORDERABLES [facility] [address] [place] [address], [facility] [phone] * CARDIAC RHYTHM STRIP ORDER (06/11/2013 10:11 AM CDT) Narrative 06/11/2013 10:11 AM CDT Ordered by an unspecified provider. Transcriptions Document, Scanned - 06/11/2013 10:11 AM CDT Scanned Document CARDIAC SERVICES ORD ERABLES * XR CERVICAL SPINE 2 OR 3 VW (06/09/2013 3:30 PM CDT) Anatomical Region Laterality Modality Spine Radio Fluoroscop y 06/09/2013 3:51 PM CDT Narrative 06/09/2013 4:04 PM CDT OR EXAMINATION CERVICAL SPINE Indication: Neck pain. Cervical surgery. The examination was performed by Dr. Grayson. No radiologist was present or involved with the procedure. Fluoroscopy time: 16.7 seconds. Images show placement of a metal plate in the cervical spine. Edited by Meli Lane on 06/09/2013 4:00 PM Procedure Note Jean Pacheco MD - 06/09/2013 OR EXAMINATION CERVICAL SPINE Indication: Neck pain. Cervical surgery. The examination was performed by Dr. Grayson. No radiologist was present or involved with the procedure. Fluoroscopy time: 16.7 seconds. Images show placement of a metal plate in the cervical spine. Edited by Meli Lane on 06/09/2013 4:00 PM John Grayson MD DIAGNOSTIC [facility] ORDERABLES * PT-INR (06/09/2013 10:43 AM CDT) PT 10.7 9.3 - 11.4 sec 06/09/2013 11:00 AM CDT [facility] INR 1.04 0.92 - 1.12 06/09/2013 11:00 AM CDT [facility] Blood BLOOD SPECIMEN / Unknown Venipuncture / Unknown 06/09/2013 10:43 AM CDT 06/09/2013 10:43 AM CDT Narrative [facility] - 06/09/2013 11:00 AM CDT Conventional Anticoagulant Therapy INR Reference Ranges: 2.0-3.0 Intensive Anticoagulant Therapy INR Reference Ranges: 2.5-3.5 John Grayson MD LAB - COAGULAT ION ORDERABLES [facility] [address] [place] [address] Care Teams Assistant Spa Manager Relationship Specialty Start Date End Date Nik Hodgson MD [address] [phone] PCP - General Internal Medicine 12/19/22
--- OUTSIDE RECORDS SUMMARY | 2024-11-27 00:51 | XMS_ITS | Data Portability ---
Author Organization [place] [employer], Main Office Address [address] [place] [address] Care Team Providers Care Coin Dealer Name Role Phone CRISTINA HODGSON Primary Care Provider CRISTINA HODGSON Referring Provider [facility] NEUROSCIENCES Neurosurgeon [facility] Pain Management FRENCH BOLAÑOS Oncology Pharmacist ANNE-MARIE SULLIVAN Urologist ARELIS WINKLER [employer] Coupler Assessment Encounter Date Assessment Date Assessment LastModified by Organization Details LastModified Time 05/05/2024 05/05/2024 12/18/2022: A1C 6.3 TG 214 TSH/FT4/VIT D/Urine micro alb: WNL CMP: BUN 28, gluc 135, GFR 50 CBC: WN 04/02/2023: PSA 0.54 A1CC 7.4 TG 175 Gluc 146, BUN 24, Cr 1.46H, GFR 51 08/02/2023: A1C 6.8 Gluc 147, Cr 1.29, GFR 58 11/16/2023: A1C 6.4 TG 211 Gluc 138, GFR 60 Urine micro alb 26.7 04/30/2024: A1C 6.6 Urine micro alb 22.2 Gluc 124 TG 185 40 minutes spent with the patient and his trin[place] Not available 05/05/2024 14:29:11 07/30/2024 07/30/2024 12/18/2022: A1C 6.3 TG 214 TSH/FT4/VIT D/Urine micro alb: WNL CMP: BUN 28, gluc 135, GFR 50 CBC: WN 04/02/2023: PSA 0.54 A1CC 7.4 TG 175 Gluc 146, BUN 24, Cr 1.46H, GFR 51 08/02/2023: A1C 6.8 Gluc 147, Cr 1.29, GFR 58 11/16/2023: A1C 6.4 TG 211 Gluc 138, GFR 60 Urine micro alb 26.7 04/30/2024: A1C 6.6 Urine micro alb 22.2 Gluc 124 TG 185 07/29/2204: PSA 0.78 Not available 07/30/2024 14:32:12 08/15/2024 08/15/2024 The patient gave verbal consent using TelePhonic services and the consent is documented in the medical record prior to using the service. The patient has been informed of what a TeleMedicine visit is. Patient is located at home. Provider is located at office. Names and roles of persons in addition to the patient and provider participating in telemedicine services include none. The patient had a 8 minute TeleMedicine consultation via [employer] to discuss the following: [email or web address] Not available 08/18/2024 09:16:36 09/22/2024 09/22/2024 12/18/2022: A1C 6.3 TG 214 TSH/FT4/VIT D/Urine micro alb: WNL CMP: BUN 28, gluc 135, GFR 50 CBC: [facility] 04/02/2023: PSA 0.54 A1CC 7.4 TG 175 Gluc 146, BUN 24, Cr 1.46H, GFR 51 08/02/2023: A1C 6.8 Gluc 147, Cr 1.29, GFR 58 11/16/2023: A1C 6.4 TG 211 Gluc 138, GFR 60 Urine micro alb 26.7 04/30/2024: A1C 6.6 Urine micro alb 22.2 Gluc 124 TG 185 07/29/2204: PSA 0.78 12/18/2022: A1C 6.3 TG 214 TSH/FT4/VIT D/Urine micro alb: WNL CMP: BUN 28, gluc 135, GFR 50 CBC: [facility] 04/02/2023: PSA 0.54 A1CC 7.4 TG 175 Gluc 146, BUN 24, Cr 1.46H, GFR 51 08/02/2023: A1C 6.8 Gluc 147, Cr 1.29, GFR 58 11/16/2023: A1C 6.4 TG 211 Gluc 138, GFR 60 Urine micro alb 26.7 04/30/2024: A1C 6.6 Urine micro alb 22.2 Gluc 124 TG 185 08/15/2024: Dr Sullivan HCT 51.0 40 minutes spent with the patient and his , reviewed and discussed the lab from Dr Sullivan, chart updated [email or web address] Not available 09/22/2024 15:51:48 Plan of Treatment Reminders Order Date Submit Date Provider Last Modified By Organization Details Last Modified Time Details Appointments Any 15 2024 03:15P Abel mccarty MD Not available Not available Not available Lab microalbu min, urine 2023 024 [email or web address] Not available 11/03/2024 08:48:05 HbA1c (hemoglob in A1c), blood 2023 024 [email or web address] Not available 11/03/2024 08:48:05 CMP, serum or plasma 2023 024 [email or web address] Not available 11/03/2024 08:48:04 CBC w/ auto diff 2023 024 [email or web address] Not available 11/03/2024 08:48:04 lipid panel, serum 2023 024 Not available 11/03/2024 08:48:04 TSH, serum or plasma 2023 024 [email or web address] Not available 11/03/2024 08:48:05 T4, free, serum 2023 024 [email or web address] Not available 11/03/2024 08:48:05 testoster one, free + total, serum 2023 024 Not available 08/04/2024 09:10:43 estradiol , serum 2023 024 [email or web address] Not available 08/04/2024 09:10:43 PSA, serum or plasma 2023 024 [email or web address] Not available 08/04/2024 09:10:43 CBC 2023 024 [email or web address] Not available 08/04/2024 09:10:43 microalbu min, urine 2023 024 Not available 09/22/2024 17:14:00 HbA1c (hemoglob in A1c), blood 2023 024 ABELARDO Not available 09/27/2024 05:52:01 CMP, serum or plasma 2023 024 ABELARDO Not available 09/27/2024 05:51:56 CBC w/ auto diff 2023 024 ABELARDO Not available 09/27/2024 05:51:58 lipid panel, serum 2023 024 ABELARDO Not available 09/27/2024 05:51:54 TSH, serum or plasma 2023 024 ABELARDO Not available 09/27/2024 05:52:00 T4, free, serum 2023 024 ABELARDO Not available 09/27/2024 05:51:59 Referral nephrolog ist referral 2023 024 [email or web address] Kamla Wang MD, [address], [address], [place], [address], 11/03/2024 08:48:26 neurologi jesus surgeon referral 2023 024 [email or web address] John Grayson MD, [address], [place], [address], 11/03/2024 08:48:27 pulmonolo gist referral 2023 024 [email or web address] Kamryn Davis, [address], [place], [address], 06/04/2024 09:54:05 podiatris t referral 2023 024 [email or web address] Jose Rafael Salvador DPM, [address], [address], [place], [address], 11/03/2024 08:48:24 cardiolog ist referral 2023 024 [email or web address] Amado Rolle MD, [address], [address], [place], [address], 11/03/2024 08:48:25 nephrolog ist referral - Please call patient to schedule. 2023 024 ISIDORO Wang MD, [address], [address], [place], [address], 09/25/2024 15:16:11 neurologi jesus surgeon referral 2023 024 [email or web address] John Grayson MD, [address], [place], [address], 09/23/2024 08:33:50 hematolog ist referral - Please call patient to schedule. 2023 024 ISIDORO Abdi, [address], [place], [address], 09/25/2024 15:11:31 podiatris t referral - Please call patient to schedule. 2023 024 ABELARDO Salvador DPM, [address] [facility], [address], [place], [address], 10/01/2024 15:49:27 cardiolog ist referral 2023 024 [email or web address] Amado Rolle MD, [address], [address], [place], [address], 09/23/2024 08:33:49 Procedures upper endoscopy procedure (EGD) (PROC) 2023 024 [email or web address] Jean Green MD, [address], [address], [place], [address], 09/23/2024 08:30:58 upper endoscopy procedure (EGD) (PROC) - Please call patient to schedule. 2023 024 [facility], [address], [address], [place], [address], 09/25/2024 14:59:11 Surgeries None recorded. Imaging None recorded. Medication Orders Voquezna 20 mg tablet 2023 024 [facility] #[id number], [address], [place], [id number], 05/05/2024 15:15:21 alfuzosin ER 10 mg tablet,ex tended release 24 hr 2023 024 [facility] #[id number], [address], [place], [id number], 05/23/2024 19:51:55 testoster one cypionate 200 mg/mL intramusc ular oil 2023 024 [facility] #[id number], [address], [place], [id number], 05/23/2024 19:51:57 amoxicill in 875 mg-potass ium clavulana te 125 mg tablet 2023 024 [facility] [employer] [facility], [address], [place], [id number], 09/22/2024 16:22:53 Voquezna 20 mg tablet 2023 024 [email or web address] [email or web address] [employer] [address], [place], [address], 09/24/2024 14:06:35 Patient TargetsNo targets recorded. Patient Instructions Encounter Date Encounter Id Patient Instructions Last Modified By Organization Details Last Modified Time 05/05/2024 [id number] diabetic eye exam* [email or web address] Not avail able 11/03/2024 08:47:37 05/23/2024 [id number] 1. I will start him on testosterone cypionate 0.75 mL once a week 2. He needs labs in 3 months CBC, total testosterone, estradiol and PSA 3. I am going to start him on alfuzosin for his BPH symptoms 4. We talked about testosterone pellets [email or web address] Not available 05/23/2024 19:50:59 08/15/2024 [id number] 1. This was just a telephone visit 8 minutes time duration 2. I will send a prescription refill in for the testosterone cypionate 0.75 mg IM once a week a 10 mL dose with 2 refills as well as syringes and needles 3. I told him in the future if he needs a little bit more energy we could probably increase up to 0.8 once a week Due to the COVID-19 (Novel Coronavirus) pandemic, it is within this context (and with the understanding that this method of patient encounter is in the patient s best interest as well as the health and safety of other patients and the public) that telehealth is being provided for this patient encounter rather than a [id number] visit. This patient encounter is appropriate at this time. This patient has been advised of the potential risks and limitations of this mode of treatment (including, but not limited to, the absence of in-person examination) and has agreed to be treated in a remote fashion despite these risks. Any and all of the patient s/patient s family s questions on this issue have been answered, and I have made no promises or guarantees to the patient. The patient has also been advised to contact this office for worsening conditions or problems, and seek emergency medical treatment and/or call 911 if the patient deems either necessary. HPI and/or vitals, if listed, were provided by the patient. [email or web address] Not available 08/15/2024 15:15:10 09/22/2024 [id number] diabetic eye exam* [email or web address] Not avail able 09/22/2024 17:14:[address] Trail Construction Worker Referral for Type 2 diabetes mellitus without complication Referring Physician: Cristina Hodgson, Internal Medicine, Encounter Date: 05/05/2024 Oncology Pharmacist Referral for Es sential hypertension Referring Physician: Cristina Hodgson Internal Medicine, Encounter Date: 05/05/2024 Industrial Yard Brake Coupler Referral for O bstructive sleep apnea syndrome Referring Physician: Cristina Hodgson Internal Medicine, Encounter Date: 05/05/2024 Member [employer] Referral for Pr oteinuria Referring Physician: Cristina Hodgson Internal Medicine, Encounter Date: 05/05/2024 Neurological Surgeon Referra l for Low back pain Referring Physician: Cristina Hodgson Internal Medicine, Encounter Date: 05/05/2024 Trail Construction Worker Referral for Type 2 diabetes mellitus without complication Please call patient to schedule. Referring Physician: Cristina Hodgson Internal Medicine, Encounter Date: 09/22/2024 Oncology Pharmacist Referral for Es sential hypertension Referring Physician: Cristina Hodgson Internal Medicine, Encounter Date: 09/22/2024 Member [employer] Referral for Pr oteinuria Please call patient to schedule. Referring Physician: Cristina Hodgson Internal Medicine, Encounter Date: 09/22/2024 Neurological Surgeon Referra l for Low back pain Referring Physician: Cristina Hodgson Internal Medicine, Encounter Date: 09/22/2024 Please call patient to lisa richardson. Referring Physician: Callum Evangelista Medicine, Encounter Date: 09/22/2024 Results Created Date Observation Date Name Description Value Unit Range Abnormal Flag Note LastModifiedBy Organization Detail LastModifiedTime 04/30/20 24 04/30/2024 CBC/C OMPLE TE BLD COUNT W/DIF F white blood cells 5.8 x10'3 /uL 4.2-10 .8 Not Available [facility] (Lab) [address] [place], [address], 04/30/2024 13:12:35 04/30/20 24 04/30/2024 CBC/C OMPLE TE BLD COUNT W/DIF F red blood cells 4.86 x10'6 /uL 4.10-5 .80 Not Available [facility] (Lab) [address] [place], [address], 04/30/2024 13:12:35 04/30/20 24 04/30/2024 CBC/C OMPLE TE BLD COUNT W/DIF F hemoglobin 15.2 g/dL 13.2-1 7.0 Not Available [facility] (Lab) [address] [place], [address], 04/30/2024 13:12:35 04/30/20 24 04/30/2024 CBC/C OMPLE TE BLD COUNT W/DIF F hematocrit 45.5 % 39.3-5 0.0 Not Available [facility] (Lab) [address] [place], [address], 04/30/2024 13:12:35 04/30/20 24 04/30/2024 CBC/C OMPLE TE BLD COUNT W/DIF F mean red cell volume 93.6 fL 80.0-9 7.0 Not Available [facility] (Lab) [address] [place], [address], 04/30/2024 13:12:35 04/30/20 24 04/30/2024 CBC/C OMPLE TE BLD COUNT W/DIF F mean red cell hemoglobin 31.3 pg 27.0-3 3.0 Not Available [facility] (Lab) [address] [place], [address], 04/30/2024 13:12:35 04/30/20 24 04/30/2024 CBC/C OMPLE TE BLD COUNT W/DIF F mean RBC HGB concentratio n 33.4 g/dL 31.0-3 6.0 Not Available [facility] (Lab) [address] [place], [address], 04/30/2024 13:12:35 04/30/20 24 04/30/2024 CBC/C OMPLE TE BLD COUNT W/DIF F red cell distribution width 12.6 % 11.8-1 5.5 Not Available [facility] (Lab) [address] [place], [address], 04/30/2024 13:12:35 04/30/20 24 04/30/2024 CBC/C OMPLE TE BLD COUNT W/DIF F platelets 192 x10'3 /uL 150-40 0 Not Available [facility] (Lab) [address] [place], [address], 04/30/2024 13:12:35 04/30/20 24 04/30/2024 CBC/C OMPLE TE BLD COUNT W/DIF F mean platelet volume 10.8 fL 9.0-12 .4 Not Available [facility] (Lab) [address] [place], [address], 04/30/2024 13:12:35 04/30/20 24 04/30/2024 CBC/C OMPLE TE BLD COUNT W/DIF F neutrophils 55.5 % 39.0-7 2.0 Not Available [facility] (Lab) [address] [place], [address], 04/30/2024 13:12:35 04/30/20 24 04/30/2024 CBC/C OMPLE TE BLD COUNT W/DIF F lymphocytes 29.0 % 16.0-4 7.0 Not Available [facility] (Lab) [address] [place], [address], 04/30/2024 13:12:35 04/30/20 24 04/30/2024 CBC/C OMPLE TE BLD COUNT W/DIF F monocytes 10.7 % 5.0-12 .0 Not Available [facility] (Lab) [address] [place], [address], 04/30/2024 13:12:35 04/30/20 24 04/30/2024 CBC/C OMPLE TE BLD COUNT W/DIF F eosinophils 3.4 % 1.0-7. 0 Not Available [facility] (Lab) [address] [place], [address], 04/30/2024 13:12:35 04/30/20 24 04/30/2024 CBC/C OMPLE TE BLD COUNT W/DIF F basophils 0.9 % 0.0-2. 0 Not Available [facility] (Lab) [address] [place], [address], 04/30/2024 13:12:35 04/30/20 24 04/30/2024 CBC/C OMPLE TE BLD COUNT W/DIF F immature granulocytes 0.5 % 0.00-0 .50 Not Available [facility] (Lab) [address] [place], [address], 04/30/2024 13:12:35 04/30/20 24 04/30/2024 CBC/C OMPLE TE BLD COUNT W/DIF F neutrophils, absolute count 3.22 x10'3 /uL 1.5-8. 0 Not Available [facility] (Lab) [address] [place], [address], 04/30/2024 13:12:35 04/30/20 24 04/30/2024 CBC/C OMPLE TE BLD COUNT W/DIF F lymphocytes, absolute count 1.68 x10'3 /uL 1.07-3 .43 Not Available [facility] (Lab) [address] [place], [address], 04/30/2024 13:12:35 04/30/20 24 04/30/2024 CBC/C OMPLE TE BLD COUNT W/DIF F monocytes, absolute count 0.62 x10'3 /uL 0.29-0 .99 Not Available [facility] (Lab) [address] [place], [address], 04/30/2024 13:12:35 04/30/20 24 04/30/2024 CBC/C OMPLE TE BLD COUNT W/DIF F eosinophils, absolute count 0.20 x10'3 /uL 0.02-0 .53 Not Available [facility] (Lab) [address] [place], [address], 04/30/2024 13:12:35 04/30/20 24 04/30/2024 CBC/C OMPLE TE BLD COUNT W/DIF F basophils, absolute count 0.05 x10'3 /uL 0.01-0 .08 Not Available [facility] (Lab) [address] [place], [address], 04/30/2024 13:12:35 04/30/20 24 04/30/2024 CBC/C OMPLE TE BLD COUNT W/DIF F immature granulocytes ,absolute 0.03 x10'3 /uL 0.00-0 .05 Not Available [facility] (Lab) [address] [place], [address], 04/30/2024 13:12:35 04/30/20 24 04/30/2024 CBC/C OMPLE TE BLD COUNT W/DIF F nucleated red blood cells 0.0 % -0 Not Available [facility] (Lab) [address] [place], [address], 04/30/2024 13:12:35 04/30/20 24 04/30/2024 CBC/C OMPLE TE BLD COUNT W/DIF F NRBC# 0.00 x10'3 /uL Not Available [facility] (Lab) [address] [place], [address], 04/30/2024 13:12:35 04/30/20 24 04/30/2024 LIPID PANEL cholesterol 103 mg/dL 140-19 9 low NIH GERMAINE NSUS RECOM MENDA TION FOR NANDA STERO L: ADULT CHILD LOW RISK: <200 <170 BORDE RLINE : <200- 239 ----- HIGH RISK: >240 >200 Not Available [facility] (Lab) [address] [place], [address], 04/30/2024 13:29:35 04/30/20 24 04/30/2024 LIPID PANEL triglyceride s 185 mg/dL 0-150 high NIH GERMAINE NSUS REPOR T RECOM MENDA TION FOR TRIGL YCERI ALEJANDRO: ADULT CHILD LOW RISK: <150 ----- BODER LINE: 150-1 99 ----- HIGH RISK: >200 ----- Not Available [facility] (Lab) [address] [place], [address], 04/30/2024 13:29:35 04/30/20 24 04/30/2024 LIPID PANEL HDL cholesterol 34 mg/dL 40- low Not Available [facility] (Lab) [address] [place], [address], 04/30/2024 13:29:35 04/30/20 24 04/30/2024 LIPID PANEL LDL cholesterol, calculated 32 mg/dL 0-130 NIH GERMAINE NSUS REPOR T RECOM MENDA TIONS FOR LDL: ADULT CHILD LOW RISK <130 <110 (OPTI MAL LDL) <100 ----- BORDE RLINE : 130-1 59 ----- HIGH RISK: >160 >130 A TRIGL YCERI DE RESUL T >400 INVAL IDATE S THE CALCU LATIO N FOR LDL FRACT IONAT ION - THE LDL RESUL T WILL NOT BE REPOR RENETTA. Not Available [facility] (Lab) [address] [place], [address], 04/30/2024 13:29:35 04/30/20 24 04/30/2024 COMPR EHENS DEXTER METAB OLIC PANEL sodium 140 mmol/ L 137-14 5 Not Available [facility] (Lab) [address] [place], [address], 04/30/2024 13:29:49 04/30/20 24 04/30/2024 COMPR EHENS DEXTER METAB OLIC PANEL potassium 3.8 mmol/ L 3.5-5. 1 Not Available [facility] (Lab) [address] [place], [address], 04/30/2024 13:29:49 04/30/20 24 04/30/2024 COMPR EHENS DEXTER METAB OLIC PANEL chloride 111 mmol/ L 98-107 high Not Available [facility] (Lab) [address] [place], [address], 04/30/2024 13:29:49 04/30/20 24 04/30/2024 COMPR EHENS DEXTER METAB OLIC PANEL carbon dioxide 21 mmol/ L 22-30 low Not Available [facility] (Lab) [address] [place], [address], 04/30/2024 13:29:49 04/30/20 24 04/30/2024 COMPR EHENS DEXTER METAB OLIC PANEL anion gap 11.8 mmol/ L 14-22 low Not Available [facility] (Lab) [address] [place], [address], 04/30/2024 13:29:49 04/30/20 24 04/30/2024 COMPR EHENS DEXTER METAB OLIC PANEL glucose 124 mg/dL 70-99 high Not Available [facility] (Lab) [address] [place], [address], 04/30/2024 13:29:49 04/30/20 24 04/30/2024 COMPR EHENS DEXTER METAB OLIC PANEL BUN 22 mg/dL 8-19 high Not Available [facility] (Lab) [address] [place], [address], 04/30/2024 13:29:49 04/30/20 24 04/30/2024 COMPR EHENS DEXTER METAB OLIC PANEL creatinine 1.12 mg/dL 0.66-1 .25 Not Available [facility] (Lab) [address] [place], [address], 04/30/2024 13:29:49 04/30/20 24 04/30/2024 COMPR EHENS DEXTER METAB OLIC PANEL GFR >60 Refer ence Range : [facility] [place] ge GFR Healt hy Adult : >60 mL/mi n/1.7 3 m2 Chron ic Kidne y Disea se: 15-60 mL/mi n/1.7 3 m2 Kidne y Failu re: <15/m L/min /1.73 m2 www.n iddk. nih.g ov The MDRD study equat ion has not been valid ated in child jamin <18 years of age; pregn ant women ; the elder ly >85 years of age; or in some racia l or ethni c subgr oups, such as Hispa nics. Outsi de the valid ated jaren eters , estim ated GFR is less accur ate, requi ring clini jesus judgm ent on a case- by-ca se basis . Clini jesus inter preta tion for other races and ages must be made by the clini ayah. The MDRD study equat ion has not been valid ated for the evalu ation of serum creat inine relat ed to nutri kasey l statu s or medic ation usage . For perso ns <18 years of age, a pedia tric GFR calcu lator is avail able on the [facility] websi te: https ://geoff najera.earline casillas/pr ofess ional s/kdo qi/gf r_cal culat or Not Available [facility] (Lab) [address] [place], [address], 04/30/2024 13:29:49 04/30/20 24 04/30/2024 COMPR EHENS DEXTER METAB OLIC PANEL alkaline phosphatase 56 U/L 38-126 Not Available [facility] (Lab) [address] [place], [address], 04/30/2024 13:29:49 04/30/20 24 04/30/2024 COMPR EHENS DEXTER METAB OLIC PANEL alanine aminotransfe rase 30 U/L 0-50 Not Available [facility] (Lab) [address] [place], [address], 04/30/2024 13:29:49 04/30/20 24 04/30/2024 COMPR EHENS DEXTER METAB OLIC PANEL aspartate aminotransfe rase 33 U/L 15-46 Not Available [facility] (Lab) [address] [place], [address], 04/30/2024 13:29:49 04/30/20 24 04/30/2024 COMPR EHENS DEXTER METAB OLIC PANEL bilirubin, total 0.60 mg/dL 0.20-1 .30 Not Available [facility] (Lab) [address] [place], [address], 04/30/2024 13:29:49 04/30/20 24 04/30/2024 COMPR EHENS DEXTER METAB OLIC PANEL calcium 9.5 mg/dL 8.4-10 .2 Not Available [facility] (Lab) [address] [place], [address], 04/30/2024 13:29:49 04/30/20 24 04/30/2024 COMPR EHENS DEXTER METAB OLIC PANEL total protein 7.5 g/dL 6.3-8. 2 Not Available [facility] (Lab) [address] [place], [address], 04/30/2024 13:29:49 04/30/20 24 04/30/2024 COMPR EHENS DEXTER METAB OLIC PANEL albumin 5.0 g/dL 3.4-5. 0 Not Available [facility] (Lab) [address] [place], [address], 04/30/2024 13:29:49 04/30/20 24 04/30/2024 COMPR EHENS DEXTER METAB OLIC PANEL globulin 2.5 g/dL 2.6-4. 2 low Not Available [facility] (Lab) [address] [place], [address], 04/30/2024 13:29:49 04/30/20 24 04/30/2024 COMPR EHENS DEXTER METAB OLIC PANEL A/G ratio 2.0 ratio 1.0-2. 0 Not Available [facility] (Lab) [address] [place], [address], 04/30/2024 13:29:49 04/30/20 24 04/30/2024 MICRO ALBUM IN RANDO M URINE microalbumin , urine 22.2 mg/L 0.0-16 .6 high Not Available [facility] (Lab) [address] [place], [address], 04/30/2024 13:38:34 04/30/20 24 04/30/2024 T4 FREE free T4 1.11 NG/dL 0.78-2 .19 Not Available [facility] (Lab) [address] [place], [address], 04/30/2024 14:05:45 04/30/20 24 04/30/2024 TSH thyroid-stim ulating hormone 1.430 uIU/m L 0.465- 4.680 Not Available [facility] (Lab) [address] [place], [address], 04/30/2024 14:03:09 04/30/20 24 04/30/2024 HEMOG LOBIN A1C HA1C 6.6 % 4.0-6. 0 high Diabe robb Scree ernesto Crite ludy: <5.7% Consi stent with absen ce of diabe robb 5.7-6 .4% Consi stent with incre ased risk for diabe robb (pred iabet es) >OR=6 .5% Consi stent with diabe robb REFER ENCE: Diabe robb Care 2016, 39(Hernandez ppl.1 ):s13 -s22 Not Available [facility] (Lab) [address], [place], [address], 04/30/2024 16:19:45 Result Notes None recorded. 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 Veronica man, [employer] 3 15:13:14 Essential hypertensi on 59446573 Active 2022 Cristina corea MD [address], [address], [place], [address] , [employer] 3 09:40:31 Hyperlipid emia 63482331 Active 2022 Cristina corea MD [address], [place], [address] , [facility] 3 09:40:34 Type 2 diabetes mellitus without complicati on 096504916 Active 2022 Cristina corea MD [address], [place], [address] , [facility] 3 09:40:40 Chronic kidney disease 394480445 Active 2022 Cristina corea MD [address], [place], [address] , [facility] 3 17:14:37 Obstructiv e sleep apnea syndrome [id number] Active 2022 Cristina corea MD [address], [place], [address] , [facility] 3 09:50:00 Chronic low back pain [id number] Active 2022 Samantha Ramsey RMLeigha null, [place] [facility] 3 16:37:50 Male hypogonadi sm 11844736 Active 2022 Samantha Ramsey RMA null, [place] [facility] 3 16:39:47 Acute sinusitis 85916256 Active 2022 Samantha Ramsey RMLeigha null, [place] [facility] 3 17:18:55 Pain of right ankle joint 5189694060199 9106 Active 2023 Cristina corea MD [address], [address], [place], [address] , [facility] 4 17:14:17 Chronic cough 37749112 Active 2023 Cristina corea MD [address], [address], [place], [address] , [facility] - [facility] 4 17:14:17 Low back pain 213234039 Active 2023 Cristina corea MD [address], [address], [place], [address] , [facility] 4 17:14:17 Proteinuri a 80677349 Active 2023 Cristina corea MD [address], [address], [place], [address] , [facility] - [facility] 4 17:14:17 Hypokalemi a 30379237 Active 2023 Cristina corea MD [address], [address], [place], [address] , [facility] - [facility] 4 17:14:17 Dyspnea 445152690 Active 2023 Cristina corea MD [address], [address], [place], [address] , [facility] 4 17:14:17 Pain of bilateral hands 6033243138304 9109 Active 2023 Cristina corea MD [address], [address] [address], [place], [address] , [facility] 4 17:14:17 Mediastina l mass 27811151 Active 2023 Cristina corea MD [address], [address] [address], [place], [address] , [facility] 4 17:28:10 Upper respirator y infection 45212242 Active 2023 Rissa Davis MA null, [place] [facility] 4 14:46:58 Seasonal allergic rhinitis 587336182 Active 2023 Rissa Davis [place] null, [place] [facility] 4 17:17:36 Gastroesop hageal reflux disease without esophagiti s 344554639 Active 2023 Cristina corea MD [address], [address] [address], [place], [address] , [facility] 4 14:39:09 Benign prostatic hyperplasi a with outflow obstructio n 145688033 Active 2023 Anne-Marie Sullivan MD [address], [address] [address], [place], [address] , [facility] 4 19:47:34 Fatigue 88870835 Active 2023 Liat Del Real CMA null, [place] [facility] 4 09:44:50 Testostero ne level below reference range 650912554 Active 2023 Liat Del Real CMA null, [place] [facility] 4 09:46:27 Serum estradiol levels below reference range 306850039 Active 2023 Liat Del Real CMA null, [place] - [facility] [employer] [facility] 4 09:47:31 Otitis media 99664758 Active 2023 Cristina corea MD [address] [facility], [address] [address], [place], [address] , [employer] [facility] [employer] [facility] 4 14:32:30 Erectile dysfunctio n 410850299 Active 2023 Cristina corea MD [address] [facility], [facility] [address], [place], [address] , [employer] [facility] [employer] [facility] 4 14:35:16 Erythrocyt osis 582942721 Active 2023 Cristina corea MD [address] [facility], [facility] [address], [place], [address] , [employer] [facility] 4 15:51:52 Notes:Medical History: Essen tial tremor Bilateral tinnitus Rhinitis Early REM onset Obesity with very severe OSAHS, AHI = 47, 04/24/23, on autoCPAP c/o [facility] [employer] Mild TR/NE PASP 35 mmHg Hypertension EF 64% Hyperlipidemia T2DM SUDEEP CKD Lumbar DDD 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 Procedures Surgical History Date Name Laterality Status Provider Name and Address Organization Details Recorded Time 07/03/20 Cardiac Cath completed HERIBERTO Teixeira [employer] [facility] [employer] 08/08/2023 17:18:15 Cholecystectomy completed HERIBERTO Teixeira [employer] 04/04/2023 17:00:14 Excisions - Specify completed Samantha Ramsey [facility] [employer] [facility] [employer] 04/04/2023 17:01:01 primary fusion of cervical spine completed Samantha Ramsey Legiha [employer] [facility] [employer] 04/04/2023 17:01:33 Imaging Results None recorded. Procedure Notes None recorded. Medical Equipment None Reported. Allergies No known drug allergies Medications Name Sig Start Date Stop Date Status Note LastModified by Organization Details LastModified Time losartan 50 mg tablet TK 1 T PO QD active Not Available Not Available No t Available nifedipin e ER 30 mg tablet,ex tended release 24 hr 11/29 completed Not Available Not Available Not Available cyclobenz aprine 10 mg tablet TAKE 1 TABLET BY MOUTH EVERY DAY NEEDED 02/07 completed Not Available Not Available Not Available amoxicill in 500 mg capsule 10/22 completed Not Available Not Available Not Available metformin 500 mg tablet TAKE 1 TABLET BY MOUTH TWICE DAILY 05/[address] foster Not Available Not Available Not Available carvedilo l 6.25 mg tablet TAKE 1 TABLET BY MOUTH TWICE DAILY active Not Available Not Available No t Available prednison e 10 mg tablet [id number], [id number], [id number] active Not Available Not Available No t Available azithromy eri 250 mg tablet TAKE 2 TABLETS (500 MG) BY ORAL ROUTE ONCE DAILY FOR 1 DAY THEN 1 TABLET (250 MG) BY ORAL ROUTE ONCE DAILY FOR 4 DAYS 05/05 completed Not Available Not Available Not Available hydrochlo rothiazid e 50 mg tablet Take 1 tablet every day by oral route. 06/25 completed Not Available Not Available Not Available cephalexi n 250 mg capsule TK ONE C PO QID 02/20 completed Not Available Not Available Not Available hydrocodo ne 5 mg-acetam inophen 325 mg tablet 10/22 completed Not Available Not Available Not Available promethaz ine 6.25 mg/5 mL oral syrup 03/20 completed Not Available Not Available Not Available Claritin 10 mg tablet Take 1 tablet every day by oral route as needed for 30 days. 05/03 completed Not Available Not Available Not Available Viagra 50 mg tablet Take 1 tablet twice a week by oral route as needed for 90 days. 05/18 completed Not Available Not Available Not Available promethaz ine 6.25 mg-codein e 10 mg/5 mL syrup Take 5 mL every 6 hours by oral route. 03/20 completed Not Available Not Available Not Available Zyrtec 10 mg tablet Take 1 tablet every day by oral route. 05/18 completed Not Available Not Available Not Available chlorthal idone 25 mg tablet TAKE 1 TABLET BY MOUTH EVERY MORNING 11/29 completed Not Available Not Available Not Available amlodipin e 5 mg tablet TAKE 1 TABLET BY MOUTH AT BEDTIME 05/18 completed Not Available Not Available Not Available peg-elect rolyte solution 420 gram oral solution 02/20 completed Not Available Not Available Not Available omeprazol e 40 mg capsule,d elayed release 10/22 completed Not Available Not Available Not Available tramadol 50 mg tablet TAKE 1 TO 2 TABLETS BY MOUTH WITH OTC TYLENOL THREE TIMES DAILY FOR PAIN CONTROL 11/29 completed Not Available Not Available Not Available spironola ctone 25 mg tablet TAKE 1 TABLET BY MOUTH EVERY DAY 04/04 completed pt stopped on his own Not Available Not Available Not Available pantopraz ole 20 mg tablet,de layed release TAKE 1 TABLET BY MOUTH EVERY DAY NEEDED 09/22 completed Not Available Not Available Not Available meloxicam 7.5 mg tablet TAKE 1 TABLET BY MOUTH TWICE DAILY WITH FOOD NEEDED 09/22 completed Not Available Not Available Not Available amiloride 5 mg tablet TAKE 2 TABLETS BY MOUTH EVERY DAY active Not Available Not Available No t Available BD Regular Bevel Gualala 18 gauge x 1 USE TO DRAW UP TESTOSTE SOFIYA EVERY WEEK active Not Available Not Available No t Available potassium 99 mg tablet Take 1 tablet by oral route. 05/21 completed Not Available Not Available Not Available nifedipin e ER 60 mg tablet,ex tended release 24 hr Take 1 tablet every day by oral route for 90 days. active Not Available Not Available No t Available desonide 0.05 % topical ointment 11/27 completed Not Available Not Available Not Available amlodipin e 10 mg tablet TAKE 1 TABLET BY MOUTH AT BEDTIME 11/29 completed Not Available Not Available Not Available benzonata te 100 mg capsule TK ONE C PO TID PRF 15 DAYS 04/24 completed Not Available Not Available Not Available pantopraz ole 40 mg tablet,de layed release Take 1 tablet every day by oral route in the morning. 09/25 completed Not Available Not Available Not Available losartan 25 mg tablet Take 1 tablet every day by oral route for 90 days. active Not Available Not Available No t Available hydrochlo rothiazid e 12.5 mg capsule TK 1 C PO QD active Not Available Not Available No t Available omeprazol e 20 mg capsule,d elayed release TAKE 1 CAPSULE BY MOUTH EVERY DAY 05/05 completed Not Available Not Available Not Available diclofena c sodium 75 mg tablet,de layed release 05/31 completed Not Available Not Available Not Available monteluka st 10 mg tablet TAKE 1 TABLET BY MOUTH EVERY DAY active Not Available Not Available No t Available codeine 10 mg-guaife nesin 100 mg/5 mL oral liquid Take 10 mL twice a day by oral route as needed for 7 days. active Not Available Not Available No t Available bisacodyl 5 mg tablet,de layed release TK 6 TS PO AT 8 AM ON 11/01 completed Not Available Not Available Not Available ergocalci ferol (vitamin D2) 1,250 mcg (50,000 unit) capsule Take 1 capsule every week by oral route. active Not Available Not Available No t Available testoster one cypionate 200 mg/mL intramusc ular oil ADMINIST ER 0.75 ML IN THE MUSCLE EVERY WEEK active Not Available Not Available No t Available ibuprofen 600 mg tablet 10/22 completed Not Available Not Available Not Available levofloxa eri 750 mg tablet Take 1 tablet every day by oral route for 7 days. active Not Available Not Available No t Available benazepri l 40 mg tablet TK 1 T PO QD active Not Available Not Available No t Available methylpre dnisolone 4 mg tablets in a dose pack FOLLOW PACKAGE DIRECTIO NS 09/22 completed Not Available Not Available Not Available albuterol sulfate HFA 90 mcg/actua tion aerosol inhaler INHALE 2 PUFFS BY MOUTH EVERY 4 HOURS 05/31 completed Not Available Not Available Not Available nifedipin e ER 60 mg tablet,ex tended release Take 1 tablet every day by oral route. 09/22 completed Not Available Not Available Not Available losartan 100 mg tablet TAKE 1 TABLET BY MOUTH EVERY DAY active Not Available Not Available No t Available doxycycli ne hyclate 100 mg tablet TAKE 1 TABLET BY MOUTH TWICE DAILY FOR 14 DAYS 05/18 completed Not Available Not Available Not Available amoxicill in 875 mg-potass ium clavulana te 125 mg tablet TAKE 1 TABLET BY MOUTH TWICE DAILY 09/22 completed Not Available Not Available Not Available rosuvasta tin 10 mg tablet TAKE 1 TABLET BY MOUTH AT BEDTIME 07/18 completed Increase in dose Not Available Not Available Not Available rosuvasta tin 20 mg tablet Take 1 tablet every day by oral route for 90 days. 05/18 completed Not Available Not Available Not Available rosuvasta tin 40 mg tablet TAKE 1 TABLET BY MOUTH EVERY DAY active Not Available Not Available No t Available alfuzosin ER 10 mg tablet,ex tended release 24 hr TAKE 1 TABLET BY MOUTH EVERY DAY active Not Available Not Available No t Available tadalafil 5 mg tablet TAKE 1 TABLET BY MOUTH DAILY active Not Available Not Available No t Available metoprolo l tartrate 25 mg tablet Take 0.5 tablets every day by oral route for 90 days. active Not Available Not Available No t Available chlorhexi dine gluconate 0.12 % mouthwash 10/22 completed Not Available Not Available Not Available vitamin E 1 TAB daily 2017 active Not Available Not Available Not Avai lable Fish Oil 08/30 completed Not Available Not Available Not Available multivita min 1 TAB daily 08/30 completed Not Available Not Available Not Available amlodipin e 10 mg-benaze pril 40 mg capsule TAKE 1 CAPSULE BY MOUTH EVERY DAY 05/03 completed Not Available Not Available Not Available fenofibra te nanocryst allized 48 mg tablet Take 1 tablet every day by oral route. 05/03 completed Not Available Not Available Not Available Xyzal 5 mg tablet Take 1 tablet every day by oral route. 11/30 completed Not Available Not Available Not Available BD Eclipse Luer-Corrine 3 mL 23 x 1 syringe USE TO INJECT TESTOSTE SOFIYA WEEKLY active Not Available Not Available No t Available Zyrtec 10 mg capsule Take by oral route. active Not Available Not Available No t Available Vascepa 1 gram capsule Take 2 capsules twice a day by oral route for 90 days. 08/08 completed Not Available Not Available Not Available potassium chloride ER 20 mEq tablet,ex tended release TAKE 1 TABLET BY MOUTH EVERY DAY FOR 7 DAYS 02/07 completed Not Available Not Available Not Available Jardiance 10 mg tablet TAKE 1 TABLET BY MOUTH EVERY MORNING 11/29 completed Not Available Not Available Not Available Jardiance 25 mg tablet TAKE 1 TABLET BY MOUTH EVERY DAY IN THE MORNING active Not Available Not Available No t Available Flonase Allergy Relief 50 mcg/actua tion nasal spray,[employer] [place] 1 spray every day by intranas al route. active Not Available Not Available No t Available Voquezna 20 mg tablet Take 1 tablet every day by oral route as needed for 90 days. 2023 active Not Available Not Available Not Avai lable Vitals Date Recorded Body height Body mass index (BMI) Body weight Body temperature Heart rate Systolic blood pressure Diastolic blood pressure Provider Name and Address Organization Details Last Updated DateTime 4 167.64 cm 32.3 kg/m2 78373.4 7 g 98.1 [degF] 60 /min 126 mm[Hg] 72 mm[Hg] HERIBERTO Teixeira [facility] [employer] [facility] 4 14:35:37 Date Recorded Body height Heart rate Body temperature Body mass index (BMI) Body weight Oxygen saturation Oxygen saturation in Arterial blood by Pulse oximetry Systolic blood pressure Diastolic blood pressure Provider Name and Address Organization Details Last Updated DateTime 4 167.64 cm 59 /min 98 [degF] 31.5 kg/m2 47289.5 1 g 97 % 97 % 153 mm[Hg] 91 mm[Hg] Liat Del Real CMA [facility] [employer] [facility] 4 16:46:23 Date Recorded Body height Body mass index (BMI) Body weight Body temperature Heart rate Systolic blood pressure Diastolic blood pressure Provider Name and Address Organization Details Last Updated DateTime 4 167.64 cm 32 kg/m2 38840.2 9 g 97.7 [degF] 72 /min 124 mm[Hg] 60 mm[Hg] HERIBERTO Teixeira [employer] [facility] [employer] [facility] 4 14:09:37 Date Recorded Body height Body mass index (BMI) Body weight Body temperature Heart rate Systolic blood pressure Diastolic blood pressure Provider Name and Address Organization Details Last Updated DateTime 4 167.64 cm 32.3 kg/m2 13999.4 7 g 97.9 [degF] 78 /min 140 mm[Hg] 80 mm[Hg] HERIBERTO Teixeira [facility] [employer] [facility] 4 16:27:59 Social History Question Answer Notes LastModified by Organizat ion Details LastModified Time Tobacco Smoking Status Never Smoker Not Available [facility] 12/13/2022 05:57:54 Do You Have An Advance Directive? Yes [id number] Information not available 12/13/2022 What Is Your Level Of Alcohol Consumption? Occasional [id number] Information not available 12/13/2022 What Is Your Level Of Caffeine Consumption? Occasional [id number] Information not available 12/13/2022 In The 14 Days Before Symptom Onset, Have You Had Close Contact With A Laboratory-confir med COVID-19 While That Case Was Ill? No [id number] Information not available 12/13/2022 In The 14 Days Before Symptom Onset, Have You Had Close Contact With A Person Who Is Under Investigation For COVID-19 While That Person Was Ill? No [id number] Information not available 12/13/2022 Are You Currently Employed? Yes Information not available 04/04/2023 What Type Of Diet Are You Following? REGULAR [id number] Information not available 12/13/2022 What Is The Highest Grade Or Level Of School You Have Completed Or The Highest Degree You Have Received? [id number] Information not available 12/13/2022 Do You Have An Electrostatic Air Filter? 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 Yes Information not available 08/30/2023 Have There Been Any Changes To Your Family Or Social Situation? No [id number] Information not available 12/13/2022 What Is The Fluoride Status Of Your Home? Unknown [id number] Information not available 12/13/2022 Do You Have A Humidifier? Yes Information not available 08/30/2023 Do You Use Insect Repellent Routinely? Yes [id number] Information not available 12/13/2022 [facility] [id number] Information not available 12/13/2022 Do You Have A Medical Power Of Drier And Evaporator Operator? Yes [id number] Information not available 12/13/2022 Do You Have Moisture Problems In Your Home? No Information not available 08/30/2023 What Was The Date Of Your Most Recent Tobacco Screening? 09/22/2024 Information not available 09/22/2024 Have You Ever Been Counseled For Unhealthy Alcohol Use? No [id number] Information not available 12/13/2022 Do You Have Any Pets? Yes [id number] Information not available 12/13/2022 What Is Your Relationship Status? [id number] Information not available 12/13/2022 Do You Use Your Seat Belt Or Car Seat Routinely? Yes [id number] Information not available 12/13/2022 Do You Have Smoke And Carbon Monoxide Detectors In Your Home? Yes [id number] Information not available 12/13/2022 Are You Passively Exposed To Smoke? No [id number] Information not available 12/13/2022 Are There Any Smokers In Your House? No [id number] Information not available 12/13/2022 What Types Of Sporting Activities Do You Participate In? None [id number].[id number] Information not available 12/13/2022 Do You Feel Stressed (tense, Restless, Nervous, Or Anxious, Or Unable To Sleep At Night)? [id number] MIGRATION.[id number] Information not available 12/13/2022 Do You Use Any Illicit Or Recreational Drugs? No [id number].[id number] Information not available 12/13/2022 Do You Use Sunscreen Routinely? No [id number] Information not available 12/13/2022 Has Tobacco Cessation Counseling Been Provided? No N/a Information not available 04/04/2023 Have You Recently Traveled Abroad? No [id number] Information not available 12/13/2022 Do You Have Any Dietary Restrictions? No [id number].[id number] Information not available 12/13/2022 Do You Or Have You Ever Used Any Other Forms Of Tobacco Or Nicotine? No [id number].[id number] 8332 Information not available 12/13/2022 Sex: Male Functional Status Question Answer Note LastModified by Organizat ion Details LastModified Time What is your exercise level? Occasional stays active at work [id number] Information not available 12/13/2022 Mental Status None recorded. Family History Relationship Description Onset Age of this Age Resolved Age Notes LastModified by Organization Details LastModified Time Maternal Grandmother Malignant tumor of lung [id number] Not available 12/13/2022 06:00:12 Paternal Grandfather Malignant tumor of lung [id number] Not available 12/13/2022 06:00:12 Father Hypertensive disorder [email or web address] Not available 2022 09:15:04 Mother Hypertensive disorder [email or web address] Not available 2022 09:15:15 Notes:grandpa esoph cancer BORDERLINE DIABETES Medical History Condition Response NERVE DISEASE N BLINDNESS N RHEUMATIC FEVER N KIDNEY STONES N BLADDER PROBLEMS N MRSA N OTHER # 1 N POLIO N LUNG DISEASE/DISORDER N HISTORY OF DRUG ABUSE N RADIATION / CHEMOTHERAPY N COPD N Other # 2 N BLOOD DISEASES N EAR OR HEARING PROBLEMS N MUMPS N SHINGLES N DEPRESSION (INCLUDING POST ) N BOWEL PROBLEMS N FAILED BACK SYNDROME N STROKE/TIA N ULCERS N BENIGN PROSTATIC HYPERPLASIA N MEASLES N HYPOTENSION N MYOCARDIAL INFARCTION N OBESITY N GERD/NAUSEA N ANEURYSM N URINARY/BLADDER/KIDNEY PROBLEMS N CORONARY ARTERY DISEASE (CAD) N Do you have Advance directive? N ADDICTION CONCERNS N Impotence N ENDOMETRIOSIS N USE OF BLOOD THINNERS N SKIN PROBLEMS N GASTROINTESTINAL DISORDER N PERIPHERAL VASCULAR DISEASE N MUSCLE,JOINT OR BONE PROBLEMS N GASTROINTESTINAL BLEEDING N BLOOD CLOTS N ASTHMA N CATARACTS N Abdominal Pain N ERECTILE DYSFUNCTION N ARTERIAL INSUFFICIENCY N VARICOSITIES N GI PROBLEMS N Low Testosterone N INFERTILITY N AIDS/HIV N CHEMOTHERAPY / RADIATION N LIVER DISEASE N MALE HYPOGONADISM N HYPERTENSION N Deficiency N TOURETTE'S N ANXIETY DISORDER N BLOOD TRANSFUSION N ANEMIA/BLOOD DISORDER N CHRONIC EAR INFECTIONS N TUBERCULOSIS N GLAUCOMA N FOOT PROBLEM N DIVERTICULITIS N SLEEP APNEA N CHICKENPOX N ALLERGIES/HAYFEVER N BACK INJECTIONS N INFECTIOUS DISEASE N PROSTATE N HEART ARRHYTHMIA N ESRD N INSOMNIA N HIGH CHOLESTEROL / HYPERLIPIDEMIA N EYE PROBLEMS N HYPERTHYROIDISM N PVD N EDEMA N CHRONIC PAIN SYNDROME N HYPOTHYROIDISM N CAROTID BLOCKAGE N CONSTIPATION N BACK / NECK PROBLEMS N ATHEROSCLEROSIS N BREAST PROBLEMS N DIALYSIS N POLYCYSTIC OVARIES N ECZEMA N OSTEOPOROSIS N ARTHRITIS N APPENDICITIS N DIABETES, TYPE N BAD TEETH N VON WILLIBRAND'S DISEASE N ENT N HEARTBURN / REFLUX N GI N AUTISM SPECTRUM DISORDER (ASD) N POST LAMINECTOMY SYNDROME N HEPATITIS / LIVER DISEASE N GOUT N SLEEP DISORDER N ALZHEIMER'S DISEASE N Brain Problems N DEMENTIA N HERPES N SEIZURES/EPILEPSY N HEADACHES/MIGRAINES N VASCULAR DISEASE N PACEMAKER N DIZZINESS N HEART DISEASE/HEART PROBLEMS N KIDNEY DISEASE N MULTIPLE SCLEROSIS N NEUROPSYCHOLOGICAL N CANCER: SPECIFY N CARDIAC ARRHYTHMIA N ATRIAL FIBRILLATION N Gall Stones N PULMONARY EMBOLISM N AUTOIMMUNE DISEASE N Immunizations Vaccine Type Date Status Note Provider Nam e and Address Organization Details Recorded Time COVID-19, mRNA, LNP-S, PF, 30 mcg/0.3 mL dose 1 completed Samantha Ramsey RMA null, [employer] [facility] [employer] [facility] 09/22/2024 16:24:51 COVID-19, mRNA, LNP-S, PF, 30 mcg/0.3 mL dose 1 completed Samantha Ramsey RMA null, [employer] - [facility] [employer] [facility] 09/22/2024 16:24:51 COVID-19, mRNA, LNP-S, PF, 30 mcg/0.3 mL dose, luna-sucrose 2 completed Samantha Ramsey RMA null, [employer] [facility] [employer] [facility] 09/22/2024 16:24:51 COVID-19, mRNA, LNP-S, PF, 100 mcg/0.5mL dose or 50 mcg/0.25mL dose 1 completed Samantha Ramsey RMA null, [employer] [facility] [employer] [facility] 09/22/2024 16:24:51 COVID-19, mRNA, LNP-S, PF, 100 mcg/0.5mL dose or 50 mcg/0.25mL dose 1 completed Samantha Ramsey RMA null, [employer] [facility] [employer] [facility] 09/22/2024 16:24:51 COVID-19, mRNA, LNP-S, PF, 30 mcg/0.3 mL dose 2 completed Samantha Ramsey RMA null, [employer] [facility] [employer] [facility] 09/22/2024 16:24:51 Influenza, split virus, quadrivalent, preservative 8 completed Not Available [facility] 12/13/2022 06:19:09 Tdap 8 completed Not Available [facility] System 12/13/2022 06:19:09 Influenza, split virus, quadrivalent, PF 8 completed Not Available [facility] 12/13/2022 06:19:09 Past Encounters Encounter ID Performer Location Encounter Start Date Encounter Closed Date Diagnosis/Indication Diagnosis SNOMED-CT Code Diagnosis ICD10 Code Diagnosis Note [id number] [facility] [place] [address] [facility] y , [place] [address] 05/18/2021 00:00:00 05/18/2021 18:05:51 [id number] [facility] [place] [address] [place] [address] y , [place] [address] 11/30/2021 00:00:00 11/30/2021 18:13:59 [id number] [facility] [place] [address] [place] [address] y , [place] [address] 02/08/2022 00:00:00 02/08/2022 15:06:35 [id number] [facility] [place] [address] [place] [address] y , [place] [address] 03/01/2022 00:00:00 03/01/2022 18:05:39 [id number] [facility] [place] [address] [place] [address] y , [place] [address] 05/31/2022 00:00:00 05/31/2022 18:05:53 [id number] [facility] Podiatry Radha Pedroza [address] [facility] [address] [place] [address] 07/24/2022 00:00:00 07/25/2022 10:44:17 [id number] [facility] Internal [facility] [place] [address] [place] [address] y , [place] [address] 11/29/2022 00:00:00 11/29/2022 17:42:29 [id number] Cristina corea MD [facility] [place] [address] [place] [address] y , [place] [address] 12/13/2022 15:53:03 12/13/2022 16:59:33 Low back pain [id number] M54.50 Will get MRI this Sunday, will also see Dr Ayo william his prior NS coming s a note for work that was providedGe t on voltaren and flexerillE R if worse, he and his verbalize their understand ing of the above [id number] Cristina corea MD [facility] [place] [address] [facility] [place] [address] 02/07/2023 16:54:55 02/07/2023 17:52:06 Low back pain 352909767 M54.50 Will get MRI this Sunday, will also see Dr Ayo william his prior NS coming s a note for work that was providedGe t on voltaren and flexerillE R if worse, he and his verbalize their understand ing of the above MRI L Spine: 12/18/2022 , needs to see NS Screening - NAD [id number] 3 Z13.9 C-scope: Get the report on the C-scope done [place] [facility] [place] Flu shotUTD Tdap if 10/22/17UTD on COVID 19 vaccineRTC in 4 monthsdo labsER if worse,he and his did verbalize his understand ing of the above Essential hypertension 39877916 I10 Repeat BP 146/72 Off amlodipine 10mg daily On amiloride 5mg dailyOn losartan 100mg dailyOn nifedipine ER 60mg dailyOn aldactone 25mg daily Sees Dr Martínez well Hyperlipidemia 06328054 E78.5 On rosuvastat in 10mg dailyGet labs 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 176105373 E11.9 On jardiance 10mg dailyGet labs Chronic cough 42834473 R 05.3 Xr Chest 12/23/[address] Fabio Busby 03/23/2022 , laryngosco pe done, take PPI Pain of ri ght ankle joint 1203058639 4672779 M25.571 No on meloxicam 7.5 mg po bid OV 05/31/2022 :See case 12/27/2021 , declines any referrals OV 11/29/2022 :Did see Dr Lemus Proteinuria 88785306 R80 .[address] Foster Hypokalemia 21634165 E87 .6 Do K 20meq dailyHe will repeat the labs as he has to see Dr Foster next monthGet CMP with routine lab Dyspnea 096247559 R06.00 Get get PFT and CT chestAlso needs to see cardiology Pain of bi lateral hands 1814564409 3855598 M79.[address] Archana mcintyre, was told to get RA labsGet labs OV 03/01/2022 :GWEN/RF: NegESR: 47Now has an apt with Dr Mcmahan rheumatolo gy OV 05/31/2022 :Dr Mcmahan, diagnosed with , does not want to see him, will get an apt with U rheumatolo gy OV 11/29/2022 :Did see Dr Boggs f/u PRN [employer] 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 CT chest 12/18/2022 : Residual thymic tissueMRI chest 01/19/2023 , see case, needs to see CT surgeon Chronic ki dney disease 387218589 N18.[address] Foster [id number] Cristina corea MD [facility] [place] [address] , [place] [address] 04/04/2023 16:52:49 04/04/2023 17:34:58 Screening - NAD 127059050 Z13.9 C-scope: Get the report on the C-scope done in [facility] Get Flu shotUTD Tdap if 10/22/17UTD on COVID 19 vaccine RTC in 4 monthsdo Audi if worseHe and his did verbalize his understand ing of the above Low back pain 459928567 M54.50 Will get MRI this Sunday, will also see Dr Rollins ton his prior NS coming SundayNe s a note for work that was providedGe t on voltaren and flexerillE R if worse, he and his verbalize their understand ing of the above MRI L Spine: 12/18/2022 , needs to see NSStates that he was told by Dr Kebede's office that they would not see him, he does not want to do IPC yet Essential hypertension 35817098 I10 Repeat BP 146/72 Off amlodipine 10mg daily On amiloride 5mg dailyOn losartan 100mg dailyOn nifedipine ER 60mg dailyOff the aldactone 25mg daily Seen Dr Martínez well Hyperlipidemia 33305561 E78.5 On rosuvastat in 10mg dailyGet labs 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 961812483 E11.9 On jardiance 10mg dailyGet labs Chronic cough 79684766 R 05.3 Xr Chest 12/23/[address] Fabio Busby 03/23/2022 , laryngosco pe done, take PPI Pain of ri ght ankle joint 2557058128 4234381 M25.[address] Lemus in the past Proteinuria 23207936 R80 .[address] Wang Hypokalemia 45176254 E87 .6 Do K 20meq dailyHe will repeat the labs as he has to see Dr Foster next monthGet CMP with routine lab Dyspnea 741323653 R06.00 Get get PFT and CT chestAlso needs to see cardiology Pain of bi lateral hands 6860120412 [id number] M79.[address] Archana mcintyre, was told to get RA labsGet labs OV 03/01/2022 :GWEN/RF: NegESR: 47Now has an apt with Dr Mcmahan rheumatolo gy OV 05/31/2022 :Dr Mcmahan, diagnosed with , does not want to see him, will get an apt with U rheumatolo gy OV 11/29/2022 :Did see Dr Boggs f/u PRN [employer] thymic tissue [id number] Q89.2 CT chest 12/18/2022 : Residual thymic tissueMRI chest 01/19/2023 , see case, needs to see CT surgeon Dr French Bolaños 02/23/2023 : Consider resection, states that he will do another CT chest in Sep 06 and then decide Chronic ki dney disease 648543217 N18.[address] Wang 04/05/2023 [id number] Cristina corea MD [facility] Internal Med [place] [address] [facility] [place] [address] 08/08/2023 17:05:12 08/09/2023 10:07:08 Screening - NAD [id number] Z13.9 C-scope: Get the report on the C-scope done in [facility] Get Flu shotUTD Tdap if 10/22/17UTD on COVID 19 vaccine RTC in 4 monthsdo rowdyER if worseHe and his did verbalize his understand ing of the above Low back pain 592415247 M54.50 Will get MRI this Sunday, will also see Dr Ayo william his prior NS coming SundayNe s a note for work that was providedGe t on voltaren and flexerillE R if worse, he and his verbalize their understand ing of the above MRI L Spine: 12/18/2022 , needs to see NSStates that he was told by Dr Kebede's office that they would not see him, he does not want to do IPC yet Essential hypertension 59789672 I10 Repeat BP 146/72 Off amlodipine 10mg daily On amiloride 5mg dailyOn losartan 100mg dailyOn nifedipine ER 60mg dailyOff the aldactone 25mg daily Seen Dr Martínez well Hyperlipidemia 42834491 E78.5 On rosuvastat in 10mg dailyGet labs 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 660140888 E11.9 On jardiance 10mg dailyGet labs Chronic cough 07406748 R 05.3 Xr Chest 12/23/[address] Fabio Busby 03/23/2022 , laryngosco pe done, take PPI Pain of ri ght ankle joint 1715171976 7129677 M25.[address] Lemus in the past Proteinuria 94945654 R80 .[address] Wang Hypokalemia 65155066 E87 .6 Do K 20meq dailyHe will repeat the labs as he has to see Dr Foster next monthGet CMP with routine lab Dyspnea 178014967 R06.00 Get get PFT and CT chestAlso needs to see cardiology Pain of bi lateral hands 7157018203 1871204 M79.[address] Archana mcintyre, was told to get RA labsGet labs OV 03/01/2022 :GWEN/RF: NegESR: 47Now has an apt with Dr Mcmahan rheumatchrissy gy OV 05/31/2022 :Dr Mcmahan, diagnosed with , does not want to see him, will get an apt with U rheumatolo gy OV 11/29/2022 :Did see Dr Boggs f/u PRN Access[facility] thymic tissue [id number] Q89.2 CT chest 12/18/2022 : Residual thymic tissueMRI chest 01/19/2023 , see case, needs to see CT surgeon Dr French Bolaños 02/23/2023 : Consider resection, states that he will do another CT chest in Sep 06 and then decide Chronic ki dney disease 378770534 N18.[address] Wang 04/05/2023 Obstructiv e sleep apnea syndrome 71885545 G47.33 Sleep study 06/04/2023 Needs to see pulmonary MD [id number] Arelis Winkler MD [facility] [place] [id number] 08/30/2023 09:05:52 08/31/2023 08:37:08 Obstructive sleep apnea syndrome 91151903 G47.33 [id number] Arelis Winkler MD [facility] [place] [address] 09/27/2023 09:08:02 10/01/2023 09:06:50 Obstructive sleep apnea syndrome 17808544 G47.33 [id number] Cristina corea MD [facility] [place] [address] [place] [address] 11/28/2023 13:04:02 11/28/2023 14:39:39 Screening - NAD [id number] Z13.9 C-scope: Get the report on the C-scope done in [facility] Get Flu shotUTD Tdap if 10/22/17UTD on COVID 19 vaccine RTC in 4 monthsdo labsER if worseHe and his did verbalize his understand ing of the above Low back pain 763800265 M54.50 Will get MRI this Sunday, will also see Dr Ayo william his prior NS coming SundayNeed s a note for work that was providedGe t on voltaren and flexerillE R if worse, he and his verbalize their understand ing of the above MRI L Spine: 12/18/2022 , needs to see NSStates that he was told by Dr Kebede's office that they would not see him, he does not want to do IPC yet Essential hypertension 70383026 I10 ECHO 09/11/2023 : EF 55% Off amlodipine 10mg daily On amiloride 5mg dailyOn losartan 100mg dailyOn nifedipine ER 60mg dailyOff the aldactone 25mg daily Seen Dr Martínez well Hyperlipidemia 92903280 E78.5 On rosuvastat in 10mg dailyGet labs 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 930936867 E11.9 On jardiance 10mg dailyGet labs Chronic cough 51418049 R 05.3 Xr Chest 12/23/[address] Fabio Busby 03/23/2022 , laryngosco pe done, take PPI Pain of ri ght ankle joint 1157246439 1368565 M25.[address] Lemus in the past Proteinuria 85345136 R80 .[address] Wang Dyspnea 482819835 R06.00 Dr Rolle 09/19/2023 , cleared for thymus surgery Pain of bi lateral hands 1927342237 2330954 M79.[address] Archana mcintyre, was told to get RA labsGet labs OV 03/01/2022 :GWEN/RF: NegESR: 47Now has an apt with Dr Mcmahan rheumatolo gy OV 05/31/2022 :Dr Mcmahan, diagnosed with , does not want to see him, will get an apt with [facility] rheumat[facility] gy OV 11/29/2022 :Did see Dr Boggs f/u PRN IPC pain management Lois Hawkins 11/01/2023 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 CT chest 12/18/2022 : Residual thymic tissueMRI chest 01/19/2023 , see case, needs to see CT surgeon Dr French Bolaños 02/23/2023 : Consider resection, states that he will do another CT chest in Sep 06 and then decide 09/19/2023 : Dr Rolle cleared for surgeryDr Bolaños: CT surgeon 09/21/2023 , to do another CT in 03/2024 and also get Myasthenia Gravis labs, today 11/28/2023 , he states that the labs are negative Chronic ki dney disease 779632933 N18.[address] Wang 04/05/2023 Obstructiv e sleep apnea syndrome 05774663 G47.33 Sleep study 06/04/[address] Winkler Male hypogonadism 761324 06 E29.1 See urology, he is interested in knowing about testostero ne, advised about the side effects for testostero ne [id number] Cristina corea MD [facility] [place] [address] [facility] [place] [address] 05/05/2024 14:27:34 05/05/2024 15:19:40 Screening - NAD [id number] Z13.9 C-scope: Get the report on the C-scope done in [facility] Get Flu shotUTD Tdap if 10/22/17UTD on COVID 19 vaccine RTC in 4 monthsdo labsER if worseHe and his did verbalize his understand ing of the above Low back pain 233138080 M54.50 Will get MRI this Sunday, will also see Dr Rollins ton his prior NS coming s a note for work that was providedGe t on voltaren and flexerillE R if worse, he and his verbalize their understand ing of the above MRI L Spine: 12/18/2022 , needs to see NSStates that he was told by Dr Kebede's office that they would not see him, he does not want to do IPC yet Essential hypertension 88304767 I10 ECHO 09/11/2023 : EF 55% Off amlodipine 10mg daily On amiloride 5mg daily, refilled see case 04/23/2024 On losartan 100mg dailyOn nifedipine ER 60mg dailyOff the aldactone 25mg daily Seen Dr Martínez well Hyperlipidemia 22720603 E78.5 On rosuvastat in 10mg dailyGet labs 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 551600797 E11.9 On jardiance 10mg dailyGet labs Chronic cough 69664021 R 05.3 Xr Chest 12/23/[address] Fabio Busby 03/23/2022 , laryngosco pe done, take PPI Pain of ri ght ankle joint 4758311641 4977718 M25.[address] Lemus in the past Proteinuria 81248022 R80 .[address] Wang Dyspnea 101275971 R06.00 Dr Rolle 09/19/2023 , cleared for thymus surgery Pain of bi lateral hands 3309486007 7914365 M79.[address] Archana mcintyre, was told to get RA labsGet labs OV 03/01/2022 :GWEN/RF: NegESR: 47Now has an apt with Dr Mcmahan rheumatolo gy OV 05/31/2022 :Dr Mcmahan, diagnosed with , does not want to see him, will get an apt with [facility] gy OV 11/29/2022 :Did see Dr Boggs f/u PRN IPC pain management Heidiurvashi Villaseñorleigha 11/01/2023 Accessory thymic tissue [id number] Q89.2 CT chest 12/18/2022 : Residual thymic tissueMRI chest 01/19/2023 , see case, needs to see CT surgeon Dr French Bolaños 02/23/2023 : Consider resection, states that he will do another CT chest in Sep 06 and then decide 09/19/2023 : Dr Rolle cleared for surgeryDr Bolaños: CT surgeon 09/21/2023 , to do another CT in 03/2024 and also get Myasthenia Gravis labs, today 11/28/2023 , he states that the labs are negative Dr Bolaños 04/11/2024 , repeat the CT chest in 6 months Chronic ki dney disease 884664501 N18.[address] Wang 04/05/2023 Obstructiv e sleep apnea syndrome 01292910 G47.33 Sleep study 06/04/[address] Winkler 09/27/2023 Get a referral to another pulm Male hypogonadism 499549 06 E29.1 See urology, he is interested in knowing about testostero ne, advised about the side effects for testostero ne Dr Sullivan 05/23/2024 Gastroesop hageal reflux disease without esophagitis 051190919 K21.9 On omeprazole 20mg daily as needed, can do 40mg daily as needed, needs to get EGD done [id number] Anne-Marie Sullivan MD [facility] Urology [address], [address] [address] 05/23/2024 16:39:39 05/23/2024 17:30:55 Male hypogonadism 82881985 E29.1 Benign pro static hyperplasia with outflow obstruction 652677504 N40.1 [id number] Cristina corea MD [facility] Internal Med [facility] [address] [place] [address] 07/30/2024 14:01:51 07/30/2024 14:30:34 Screening - NAD 122262707 Z13.9 C-scope: Get the report on the C-scope done in [facility] Get Flu shotUTD Tdap if 10/22/17UTD on COVID 19 vaccine RTC in 4 monthsdo labsER if worseHe and his did verbalize his understand ing of the above Otitis media 41295471 H6 6.92 Mildly sclerosed and red TMWill start on augmentinN otify if not better, then may beed to be on MDP or see ENTKeep on the zyrtec and flonase [id number] Anne-Marie Sullivan MD [facility] Urology [place] [id number] [facility], [address] [place] [address] 08/15/2024 15:09:23 08/15/2024 15:10:53 Male hypogonadism 04725241 E29.1 Testostero ne level below reference range 027568038 R89.1 [id number] Cristina corea MD [facility] Primary Care [facility] [address] [facility] [address] [place] [address] 09/22/2024 16:04:15 09/22/2024 17:15:16 Screening - NAD 319622540 Z13.9 C-scope: Get the report on the C-scope done in [facility] Get Flu shotUTD Tdap if 18UTD on COVID 19 vaccine RTC in 4 monthsdo labsER if worseHe and his did verbalize his understand ing of the above Low back pain 471699338 M54.50 Will get MRI this Sunday, will also see Dr Rollins ton his prior NS coming SundayNeed s a note for work that was providedGe t on voltaren and flexerillE R if worse, he and his verbalize their understand ing of the above MRI L Spine: 12/18/2022 , needs to see NSStates that he was told by Dr Kebede's office that they would not see him, he does not want to do IPC yet Essential hypertension 92207101 I10 ECHO 09/11/2023 : EF 55% Off amlodipine 10mg daily On amiloride 5mg dailyOn losartan 100mg dailyOn nifedipine ER 60mg dailyOff the aldactone 25mg daily Seen Dr Martínez well Hyperlipidemia 21543687 E78.5 On rosuvastat in 10mg dailyGet labs 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 399109679 E11.9 On jardiance 10mg dailyGet labs Chronic cough 92944099 R 05.3 Xr Chest 12/23/[address] Fabio Busby 03/23/2022 , laryngosco pe done, take PPI Pain of ri ght ankle joint 6229902761 8366316 M25.[address] Lemus in the past Proteinuria 13931432 R80 .[address] Wang Dyspnea 129673421 R06.00 Dr Rolle 09/19/2023 , cleared for thymus surgery Pain of bi lateral hands 2925051125 8876556 M79.[address] Archana mcintyre, was told to get RA labsGet labs OV 03/01/2022 :GWEN/RF: NegESR: 47Now has an apt with Dr Mcmahan rheumatolo gy OV 05/31/2022 :Dr Mcmahan, diagnosed with , does not want to see him, will get an apt with [facility] OV 11/29/2022 :Did see Dr Boggs f/u PRN IPC pain management [place] 11/01/2023 Accessory thymic tissue [id number] Q89.2 CT chest 12/18/2022 : Residual thymic tissueMRI chest 01/19/2023 , see case, needs to see CT surgeon Dr French Bolaños 02/23/2023 : Consider resection, states that he will do another CT chest in Sep 06 and then decide 09/19/2023 : Dr Rolle cleared for surgeryDr Bolaños: CT surgeon 09/21/2023 , to do another CT in 03/2024 and also get Myasthenia Gravis labs, today 11/28/2023 , he states that the labs are negative Dr Bolaños 04/11/2024 , repeat the CT chest in 6 months Chronic ki dney disease 288791144 N18.[address] Wang 04/05/2023 Obstructiv e sleep apnea syndrome 31781075 G47.33 Sleep study 06/04/[address] Winkler 09/27/2023 Get a referral to another [facility] Fabio Neves 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 REACTOR OPERATOR 07/07/2024 , f/u 4-6 months Male hypogonadism 295555 06 E29.1 See urology, he is interested in knowing about testostero ne, advised about the side effects for testostero ne Dr Sullivan 05/23/2024 Dr Sullivan 08/15/2024 , now on testostero ne Gastroesop hageal reflux disease without esophagitis 524150650 K21.9 On omeprazole 20mg daily as needed, can do 40mg daily as needed, needs to get EGD done Erythrocytosis 723749315 D75.1 Has ALISSA and is now on testostero ne, get a referral to hematology Health Concerns Section Related Observation LastModified by Organization Detai ls LastModified Time None Recorded Concern Status LastModified by Organization Details LastModified Time None Recorded Advance Directives Directive Y: Payers Encounter Date Sequence Insurance Name Policy Number Policy [place] Covered Member ID De La [place]ega Member ID Guarantor Name 05/05/2024 1 [place] [id number] Daiana S Wero [id number] Filipe Crespoinski 05/23/2024 1 [place] [id number] Daiana S Wero [id number] Filipe David CrespoWero 07/30/2024 1 [place] [id number] Daiana S Wero [id number] Filipe David CrespoWero 08/15/2024 1 [place] [id number] Daiana S Wero [id number] Filipe Crespoinski 09/22/2024 1 [place] [id number] Daiana S Wero [id number] Filipe Conteh Notes Date Note Type Note Provider Name and Address Organization Details Recorded Time 05/05/2024 text/html Here to jay Adan Hx:Norberto social family and surgical historyHere as he would like to get his 'glands' checked, he did see his PMD and was told that he had an inner ear infection and the POWER REACTOR OPERATOR wanted a CT scan but he does not feel that he needs to get this, he was treated with amoxicillin and feels that the lymph nodes keep 'coming up'DId have an US of the neck 6-7 years ago OV 03/20/18:ACV:Here with c/o coughHe states that he was working in an a room, and was breathing a lot of dust and now has the coughThe cough is worse, +ve SOBSince 3 weeks agoCough is dryFeels that the cough causes a headacheNo blood in the coughWas treated with steroids and cough meds with codine and nasal sprayHe feels that this has not helped OV 03/27/18:Here for his follow up on the CT chestHe states that he still has the cough, and this is constantNo fevers or chills, no chest painNo cough when he sleepsHe works in a adrianne environment OV 04/24/18Here for his one month aptHe since then has had a PFT, still has the chronic coughStill dryNo blood, no chest painNo fevers or chills, no N/VHe continues to work in a adrianne work place and feels that this is not helping him at all OV 05/22/18:Here for his one month aptHe states that he is doing better at this time, he does have the cough, but this is now intermittent and much lessHe states that he could not take the breo as he had some facial swelling OV 06/27/18:ACV:Here with URI sx since 2-3 daysC/o sinus congestion and cough since about a weekNo blood in sputum, yellow sputumNo N/V or diarrheaC/o fatigueNo rashNo chest pain, no wheezingNo SOB OV 09/25/18:ACV:C/o URI sx since about 2 daysC/o sore throatNo fevers or chillsNo sputum production notedSome fatigueNo chest pain or SOBNo wheezing notedC/o elsa hand pain also since 6 weeks, states that he does a lot of work with his handsC/o swelling over the MCP joints bilaterallyOV 10/23/18:Here for his routine aptHe states that he is doing well OV 05/21/19:Here for his routine aptHe feels wellNo recent labs OV 05/03/2020:Here for his routine aptHe is doing well at this timeHe has not done any recent labs OV 11/15/2020:Here for his routine aptHe feels really well todayHe states that since he went and saw Dr Foster his BP is much betterHe would like viagra for his EDOV 05/18/2021:Here for his rouitne aptHe is doing wellNo new labsHe is here with his wifeOV 11/30/2021:Here for his routine aptHe is doing wellHe is here with his wifeOV 02/08/2022:Here for a cough, since working on a cooler with formaldehydeFeels some wheezing, no fever or chillsNot productiveNo chest pain, or SOBOV 03/01/2022:Here for his routine aptHe is doing well, but still has a coughHe also has had some R ankle pain, did see Dr Magaña but now wants to see podiatry thru this officeHe did do the labs on 2OV 05/31/2022:Here for his routine apt, he is still c/o coughHe did do the labs on 2OV 11/29/2022:Here for his f/u apt, he is doing very well, here with his OV 12/22/2022:ACV:C/o L sided LBP, twisted back at work 5 days ago, L sided pain, sharp, radiates to his L anterior thigh, no N/T or weakness, no loss of B/B sx, is to see NS and also get MRI LS Spine, here with his OV 02/07/2023:Here for his BP check, he states that he is BP is elevated in the evenings, he does state that he is upset that Dr Foster is unable to control his BP, he feels that the BP is not stable, he also c/o occasional palpitations, none today OV 04/04/2023: Here for his f/u apt, he is doing well today, he is here with his , he did do the labs OV 08/08/2023: Here for his f/u apt, does well, did do the labs OV 11/28/2023: Here for his routine apt, he is doing well today, he did do the labs, he is here with his OV 05/05/2024: Here for his routine apt, he does c/o GERD and would like to change his medicine he did do the labs, here with his Cristina Hodgson MD [address], [address], [place], [address], [employer] 05/05/2024 15:16:55 05/23/2024 text/html the patient come s in with labs which show that his testosterone is still on the slightly low end of normal at 319 and another 1 showing 363. Both of which could be symptomatic it is all based on not just the testosterone but the testosterone estradiol ratio He is very tired complains of significant fatigue he does have a lot of work stress but he just says he is just terribly tired. He also has some BPH symptoms he has some terminal dribbling he thinks his stream is slower he gets up maybe 1 time per night to void Anne-Marie Sullivan MD [address] [facility], [address], [place], [address], [employer] 05/23/2024 19:51:54 07/30/2024 text/html Here to jay Adan Hx:GERDHTNReviewed social family and surgical historyHere as he would like to get his 'glands' checked, he did see his PMD and was told that he had an inner ear infection and the POWER REACTOR OPERATOR wanted a CT scan but he does not feel that he needs to get this, he was treated with amoxicillin and feels that the lymph nodes keep 'coming up'DId have an US of the neck 6-7 years ago OV 03/20/18:ACV:Here with c/o coughHe states that he was working in an a room, and was breathing a lot of dust and now has the coughThe cough is worse, +ve SOBSince 3 weeks agoCough is dryFeels that the cough causes a headacheNo blood in the coughWas treated with steroids and cough meds with codine and nasal sprayHe feels that this has not helped OV 03/27/18:Here for his follow up on the CT chestHe states that he still has the cough, and this is constantNo fevers or chills, no chest painNo cough when he sleepsHe works in a adrianne environment OV 04/24/18Here for his one month aptHe since then has had a PFT, still has the chronic coughStill dryNo blood, no chest painNo fevers or chills, no N/VHe continues to work in a adrianne work place and feels that this is not helping him at all OV 05/22/18:Here for his one month aptHe states that he is doing better at this time, he does have the cough, but this is now intermittent and much lessHe states that he could not take the breo as he had some facial swelling OV 06/27/18:ACV:Here with URI sx since 2-3 daysC/o sinus congestion and cough since about a weekNo blood in sputum, yellow sputumNo N/V or diarrheaC/o fatigueNo rashNo chest pain, no wheezingNo SOB OV 09/25/18:ACV:C/o URI sx since about 2 daysC/o sore throatNo fevers or chillsNo sputum production notedSome fatigueNo chest pain or SOBNo wheezing notedC/o elsa hand pain also since 6 weeks, states that he does a lot of work with his handsC/o swelling over the MCP joints bilaterallyOV 10/23/18:Here for his routine aptHe states that he is doing well OV 05/21/19:Here for his routine aptHe feels wellNo recent labs OV 05/03/2020:Here for his routine aptHe is doing well at this timeHe has not done any recent labs OV 11/15/2020:Here for his routine aptHe feels really well todayHe states that since he went and saw Dr Foster his BP is much betterHe would like viagra for his EDOV 05/18/2021:Here for his rouitne aptHe is doing wellNo new labsHe is here with his wifeOV 11/30/2021:Here for his routine aptHe is doing wellHe is here with his wifeOV 02/08/2022:Here for a cough, since working on a cooler with formaldehydeFeels some wheezing, no fever or chillsNot productiveNo chest pain, or SOBOV 03/01/2022:Here for his routine aptHe is doing well, but still has a coughHe also has had some R ankle pain, did see Dr Magaña but now wants to see podiatry thru this officeHe did do the labs on 2OV 05/31/2022:Here for his routine apt, he is still c/o coughHe did do the labs on 2OV 11/29/2022:Here for his f/u apt, he is doing very well, here with his OV 12/22/2022:ACV:C/o L sided LBP, twisted back at work 5 days ago, L sided pain, sharp, radiates to his L anterior thigh, no N/T or weakness, no loss of B/B sx, is to see NS and also get MRI LS Spine, here with his OV 02/07/2023:Here for his BP check, he states that he is BP is elevated in the evenings, he does state that he is upset that Dr Foster is unable to control his BP, he feels that the BP is not stable, he also c/o occasional palpitations, none today OV 04/04/2023: Here for his f/u apt, he is doing well today, he is here with his , he did do the labs OV 08/08/2023: Here for his f/u apt, does well, did do the labs OV 11/28/2023: Here for his routine apt, he is doing well today, he did do the labs, he is here with his OV 05/05/2024: Here for his routine apt, he does c/o GERD and would like to change his medicine he did do the labs, here with his OV 07/30/2024: Here for a ear ache and 'swollen glands' he denies any fevers or chills, no dizzyness, no d/c from his ear Cristina Hodgson MD [address], [facility] [address], [place], [address], [place] [employer] 07/30/2024 14:51:43 08/15/2024 text/html the patient was previously seen and started on testosterone replacement he receives A dose of 0.75 mg of testosterone injection once a week. His labs show a PSA of 0.78. Hemoglobin 16 hematocrit 51 total testosterone 622 He says he feels better Anne-Marie Sullivan MD [address] [facility], [address], [place], [address], [employer] 08/18/2024 16:17:22 09/22/2024 text/html Here to jay Adan Hx:GERDHTNReviewed social family and surgical historyHere as he would like to get his 'glands' checked, he did see his PMD and was told that he had an inner ear infection and the POWER REACTOR OPERATOR wanted a CT scan but he does not feel that he needs to get this, he was treated with amoxicillin and feels that the lymph nodes keep 'coming up'DId have an US of the neck 6-7 years ago OV 03/20/18:ACV:Here with c/o coughHe states that he was working in an a room, and was breathing a lot of dust and now has the coughThe cough is worse, +ve SOBSince 3 weeks agoCough is dryFeels that the cough causes a headacheNo blood in the coughWas treated with steroids and cough meds with codine and nasal sprayHe feels that this has not helped OV 03/27/18:Here for his follow up on the CT chestHe states that he still has the cough, and this is constantNo fevers or chills, no chest painNo cough when he sleepsHe works in a adrianne environment OV 04/24/18Here for his one month aptHe since then has had a PFT, still has the chronic coughStill dryNo blood, no chest painNo fevers or chills, no N/VHe continues to work in a adrianne work place and feels that this is not helping him at all OV 05/22/18:Here for his one month aptHe states that he is doing better at this time, he does have the cough, but this is now intermittent and much lessHe states that he could not take the breo as he had some facial swelling OV 06/27/18:ACV:Here with URI sx since 2-3 daysC/o sinus congestion and cough since about a weekNo blood in sputum, yellow sputumNo N/V or diarrheaC/o fatigueNo rashNo chest pain, no wheezingNo SOB OV 09/25/18:ACV:C/o URI sx since about 2 daysC/o sore throatNo fevers or chillsNo sputum production notedSome fatigueNo chest pain or SOBNo wheezing notedC/o elsa hand pain also since 6 weeks, states that he does a lot of work with his handsC/o swelling over the MCP joints bilaterallyOV 10/23/18:Here for his routine aptHe states that he is doing well OV 05/21/19:Here for his routine aptHe feels wellNo recent labs OV 05/03/2020:Here for his routine aptHe is doing well at this timeHe has not done any recent labs OV 11/15/2020:Here for his routine aptHe feels really well todayHe states that since he went and saw Dr Foster his BP is much betterHe would like viagra for his EDOV 05/18/2021:Here for his rouitne aptHe is doing wellNo new labsHe is here with his wifeOV 11/30/2021:Here for his routine aptHe is doing wellHe is here with his wifeOV 02/08/2022:Here for a cough, since working on a cooler with formaldehydeFeels some wheezing, no fever or chillsNot productiveNo chest pain, or SOBOV 03/01/2022:Here for his routine aptHe is doing well, but still has a coughHe also has had some R ankle pain, did see Dr Magaña but now wants to see podiatry thru this officeHe did do the labs on 2OV 05/31/2022:Here for his routine apt, he is still c/o coughHe did do the labs on 2OV 11/29/2022:Here for his f/u apt, he is doing very well, here with his OV 12/22/2022:ACV:C/o L sided LBP, twisted back at work 5 days ago, L sided pain, sharp, radiates to his L anterior thigh, no N/T or weakness, no loss of B/B sx, is to see NS and also get MRI LS Spine, here with his OV 02/07/2023:Here for his BP check, he states that he is BP is elevated in the evenings, he does state that he is upset that Dr Foster is unable to control his BP, he feels that the BP is not stable, he also c/o occasional palpitations, none today OV 04/04/2023: Here for his f/u apt, he is doing well today, he is here with his , he did do the labs OV 08/08/2023: Here for his f/u apt, does well, did do the labs OV 11/28/2023: Here for his routine apt, he is doing well today, he did do the labs, he is here with his OV 05/05/2024: Here for his routine apt, he does c/o GERD and would like to change his medicine he did do the labs, here with his OV 07/30/2024: Here for a ear ache and 'swollen glands' he denies any fevers or chills, no dizzyness, no d/c from his ear OV 09/22/2024: Here for his f/u apt, he is here with his , he feels well today, would like to get the refill for Voquetoniaza, he states that this has helped him a lot, he did see urology and did labs with them Cristina Hodgson MD [address] [place] [address], [address], [place], [address], [facility] 09/24/2024 14:07:54
--- OUTSIDE RECORDS SUMMARY | 2024-11-27 00:51 | XMS_ITS | Encounter Summary ---
Author Organization [facility] Health Address [address] [place] [address] Care Team Providers Care Bilingual Sales Representative Name Role Phone Pcp, Unknown Primary Care Provider Nik Álvarez MD Primary Care Provider Encounter Details Date Type Department Care Team (Late Contact Info) Description 04/02/2013 [facility] Outpatient Visit [facility] [address] [place] [id number] Unknown, Provider Social History Tobacco Use Types Packs/Day Years Used Date Smoking Tobacco: Never Assessed Sex and Gender Information Value Date Recorded Sex Assigned at Not on file Gender Identity Not on file Sexual Orientation Not on file documented as of this encounter Plan of Treatment Upcoming Encounters Date Type Department Care Team (Late Contact Info) Description 12/09/2024 8:30 AM FEDERAL AID COORDINATOR Appointment [facility] CAT SCAN [address] [place] [phone] French Bolaños MD [address] [place] [phone] 12/12/2024 9:00 AM FEDERAL AID COORDINATOR Office Visit [facility] Health Heart & Vascular Care [address] [place] [address] French Bolaños MD [address] [place] [phone] documented as of this encounter Visit Diagnoses Not on filedocumented in this encounter Care Teams Bilingual Sales Representative Relationship Specialty Start Date End Date Pcp, Unknown No [place] [address] PCP - General 02/25/13 Nik Hodgson MD [address] [address] PCP - General Internal Medicine 12/19/22 documented as of this encounter
--- OUTSIDE RECORDS SUMMARY | 2024-11-27 00:51 | XMS_ITS | Clinical Summary ---
Author Organization [facility] Facility Address [address] [place] [address] Care Team Providers Care Die Operator Name Role Phone Nik Hodgson MD Primary Care Provider [phone] Medications rosuvastatin (CRESTOR) 10 MG tablet TAKE 1 TABLET BY MOUTH AT BEDTIME 90 tablet 1 05/30/2021 Active chlorthalidone 25 MG tablet Take 0.5 tablets (12.5 mg total) by mouth 1 (one) time each day in the morning 45 tablet 1 08/30/2022 Active spironolactone (ALDACTONE) 25 MG tablet Take 1 tablet (25 mg total) by mouth 1 (one) time each day in the morning 90 tablet 1 08/30/2022 Active aMILoride (MIDAMOR) 5 MG tablet TAKE 2 TABLETS(10 MG) BY MOUTH 1 TIME EACH DAY IN THE MORNING 180 tablet 1 01/15/2023 Active Jardiance 25 MG tablet TAKE 1 TABLET BY MOUTH 1 TIME EACH DAY IN THE MORNING 90 tablet 1 01/15/2023 Active NIFEdipine XL (PROCARDIA XL) 60 MG 24 hr tablet TAKE 1 TABLET(60 MG) BY MOUTH EVERY NIGHT. DO NOT CRUSH, CHEW, OR SPLIT 90 tablet 1 03/09/2023 Active Social History Tobacco Use Types Packs/Day Years Used Date Smoking Tobacco: Never Assessed Sex and Gender Information Value Date Recorded Sex Assigned at Not on file Legal Sex Male 2:52 PM EDT Gender Identity Not on file Sexual Orientation Not on file Last Filed Vital Signs Vital Sign Reading Time Taken Comments Blood Pressure 118/62 11/01/2022 9:33 AM MANAGER FIELD SERVICE Pulse 56 11/01/2022 9:33 AM MANAGER FIELD SERVICE Temperature 36.1 C (97 F) 11/01/2022 9:33 AM MANAGER FIELD SERVICE Respiratory Rate 18 11/01/2022 9:33 AM MANAGER FIELD SERVICE Oxygen Saturation 97% 11/01/2022 9:33 AM MANAGER FIELD SERVICE Inhaled Oxygen Concentration - - Weight 90.4 kg (199 lb 3.2 oz) 11/01/2022 9:33 A M MANAGER FIELD SERVICE Height 165.1 cm (5' 5 ) 11/01/2022 9:33 AM MANAGER FIELD SERVICE Body Mass Index 33.15 11/01/2022 9:33 AM MANAGER FIELD SERVICE Plan of Treatment Health Maintenance Due Date Last Done Comments Pneumococcal Vaccine: Pediat rics (0 to 5 Years) and At-Risk Patients (6 to 64 Years) (1 of 2 - PCV) 1975 Hepatitis B Vaccine (1 of 3 - 19+ 3-dose series) 05/13 Colorectal Cancer Screening: Annual FOBT 2018 Colorectal Cancer Screening: Colonoscopy 2018 Colorectal Cancer Screening: Sigmoidoscopy 2018 Influenza Vaccine (#1) 2024 Insurance [facility] Care Teams Die Operator Relationship Specialty Start Date End Date Nik Hodgson MD [address] [place] [address], [address] [place] [address] PCP - General Internal Medicine 07/07/21
--- OUTSIDE RECORDS SUMMARY | 2024-11-27 00:51 | XMS_ITS | Encounter Summary ---
Author Organization [facility] Address [address] [place] [address] Care Team Providers Care Director Of Financial Reporting Name Role Phone Nik Hodgson MD Primary Care Provider Reason for Visit * Reason Onset Date Comments Scheduling 10/09/2024 Encounter Details Date Type Department Care Team (Late st Contact Info) Description 10/09/2024 Telephone [facility] - Cardiothoracic Surgery [address] [place] [address], [place] [phone] Sonya Proctor, RN Scheduling Social History Tobacco Use Types Packs/Day Years Used Date Smoking Tobacco: Never Smokeless Tobacco: Never Alcohol Use Standard Drinks/Week Comments Yes 0 (1 standard drink = 0.6 oz pur e alcohol) rare PHQ-2 Answer Date Recorded PHQ2 TOTAL SCORE 0 06/14/2022 Sex and Gender Information Value Date Recorded Sex Assigned at Not on file Gender Identity Not on file Sexual Orientation Not on file documented as of this encounter Miscellaneous Notes * Telephone Encounter - Kaitlin Rasmussen - 10/09/2024 12:03 PM CST Time and date of call: 12:05 pm, 10/09/24 Patient name & : Filipe Conteh Jr. Doctor caring for patient: Dr. Rogerio Bolaños Reason for call: Patient needs to reschedule his appt. Staff member they would like to speak with: Sonya Proctor Nurse Navigator Sepideh Sinha Clinical Nurse Meli Hoffman assistant professor of philosophy and nutrition manager Patient call back number: [phone] UND SALES ADVISOR documented in this encounter Plan of Treatment Upcoming Encounters Date Type Department Care Team (Late st Contact Info) Description 12/09/2024 8:30 AM INBOUND SALES ADVISOR Appointment [facility] CAT SCAN [address] [place] [address] French Bolaños MD [address] [place] [phone] 12/12/2024 9:00 AM INBOUND SALES ADVISOR Office Visit [facility] Heart & Vascular Care [address] [place] [address] French Bolaños MD [address] [place] [phone] documented as of this encounter Visit Diagnoses Not on filedocumented in this encounter Care Teams Director Of Financial Reporting Relationship Specialty Start Date End Date Nik Hodgson MD [address] [address] PCP - General Internal Medicine 12/19/22 documented as of this encounter
--- OUTSIDE RECORDS SUMMARY | 2024-11-27 00:51 | XMS_ITS | Encounter Summary ---
Author Organization [facility] , [facility] Address [address] [facility] [place] [address] Phone Care Team Providers Care Arch Cushion Skiving Machine Operator Name Role Phone Nik Hodgson MD Primary Care Provider [phone] Reason for Visit * Reason Comments Med Refill Encounter Details Date Type Department Care Team (Late st Contact Info) Description 05/30/2021 Refill [place] [facility], [facility] [address] [place] [address] 1 [place] [address] Cedrick Foster DO [address] [facility] [address] [place] [address] Social History Tobacco Use Types Packs/Day Years Used Date Smoking Tobacco: Never Assessed Sex and Gender Information Value Date Recorded Sex Assigned at Not on file Legal Sex Male 2:52 PM EDT Gender Identity Not on file Sexual Orientation Not on file documented as of this encounter Plan of Treatment Not on file documented as of this encounter Visit Diagnoses Not on filedocumented in this encounter Care Teams Arch Cushion Skiving Machine Operator Relationship Specialty Start Date End Date Nik Hodgson MD [address] [facility], [address] [place] [address] PCP - General Internal Medicine 07/07/21 documented as of this encounter
--- OUTSIDE RECORDS SUMMARY | 2024-11-27 00:52 | XMS_ITS | Referral Summary ---
Author Organization [facility] Address [address] [facility] [place] [address] Care Team Providers Care Trimmer Buffing Wheel Name Role Phone Nik Hodgson MD Primary Care Provider Source Comments [facility],non-owned Affiliates and Associated Physician Practices is amultiple site organization consisting of ambulatory clinics and hospital sitesin [place], [place], [place] and [place]. This disclosure is being madepursuant to the Care Everywhere program and may not contain all information available regarding this patient. Last updated 18.[facility] Encounters Date Type Department Care Team Description 10/09/2024 Telephone [facility] - Cardiothoracic Surgery [address] [facility], [place] [phone] Sonya Proctor, RN Scheduling from Last 3 Months Allergies No known active allergies Medications * Be aware that medications may not be up to date on this document. Alwaysverify current medications with the patient. Medication Sig Dispensed Refills Start Date End Date Status losartan (Cozaar) 100 MG tablet Take 1 (one) tablet by mouth once daily 04/26/2022 Active meloxicam (Mobic) 7.5 MG tablet Take 1 (one) tablet by mouth 2 times daily as needed 03/01/2022 Active omeprazole (PriLOSEC) 20 MG capsule Take 1 (one) capsule by mouth daily before breakfast 04/25/2022 Active rosuvastatin (Crestor) 40 MG tablet Take 1 (one) tablet by mouth once daily 05/27/2022 Active Vitamin E 180 MG (400 UNIT) CAPS Take 1 (one) capsule by mouth once daily Active cetirizine (ZyrTEC) 10 MG tablet Take 1 (one) tablet by mouth once daily Active Multiple Vitamin (MULTIVITAMIN ADULT PO) Take 1 tablet by mouth once daily Active Misc Natural Products (CORTISOL PO) Take 1 tablet by mouth once daily Active aMILoride (Midamor) 5 MG tablet Take 2 (two) tablets by mouth every morning 07/19/2022 Active NIFEdipine CR osmotic 24hr (Procardia-XL) 30 MG tablet Take 1 (one) tablet by mouth at bedtime 07/19/2022 Active empagliflozin (Jardiance) 25 MG tablet Take 1 (one) tablet by mouth once daily Active spironolactone (Aldactone) 25 MG tablet Take 1 (one) tablet by mouth every morning 08/30/2022 Active methylPREDNISolone (Medrol Dosepak) 4 MG tablet Take by mouth as directed Take as directed by mouth per package instructions. 21 tablet 12/19/2022 Active Additional Information Patient not taking.Reported on 05/21/2024 Active Problems Problem Noted Date Diagnosed Date [...] CDT Respiratory Rate 14 09/21/2023 9:52 AM HORSE WRANGLER Oxygen Saturation 96% 04/11/2024 8:31 AM CDT Inhaled Oxygen Concentration - - Weight 88.2 kg (194 lb 8 oz) 05/21/2024 1:16 PM CDT Height 167.6 cm (5' 6 ) 05/21/2024 1:16 PM CDT Body Mass Index 31.39 05/21/2024 1:16 PM CDT Plan of Treatment Upcoming Encounters Date Type Department Care Team (Late st Contact Info) Description 12/09/2024 8:30 AM HORSE WRANGLER Appointment [facility] CAT SCAN [address] [place] [address] French Bolaños MD [address] [place] [phone] 12/12/2024 9:00 AM HORSE WRANGLER Office Visit [facility] Health Heart & Vascular Care [address] [place] [phone] French Bolaños MD [address] [place] [phone] Procedures Procedure Name Priority Date/Time Associated Diagnosis Comments COMPREHENSIVE METABOLIC PANEL 07/03/2022 8:52 AM CDT from Last 3 Months or Most Recently Relevant to Health Maintenance Results * (ABNORMAL) COMPREHENSIVE METABOLIC PANEL (07/03/2022 8:52 AM CDT) Glucose 131(H) 65 - 99 mg/dL [facility] [...] 46 U/L [facility] Comment: Test Performed at: [facility] [address] [place] [address] GWEN PARK DO,MPH 07/03/2022 8:52 AM CDT 07/03/2022 8:53 AM CDT Eduard Boggs MD LAB - CHEMISTRY N[facility] Organization Address City/State/[facility] Co de Phone Number [facility] [phone] [place] [address] from Last 3 Months or Most Recently Relevant to Health Maintenance Advance Directives * FULL RESUSCITATION (Latest Code Status on File) Date Activated Date Inactivated Comments 06/09/2013 7:10 PM 06/10/2013 11:40 AM Care Teams Trimmer Buffing Wheel Relationship Specialty Start Date End Date Nik Hodgson MD [address] [facility] [address] [place] [phone] PCP - General Internal Medicine 12/19/22
--- OUTSIDE RECORDS SUMMARY | 2024-11-27 00:52 | XMS_ITS | Clinical Summary ---
Author Organization [facility] [employer] Address [address] [place] [address] Care Team Providers Care Rural Sociologist Name Role Phone Nik Hodgosn MD Primary Care Provider Source Comments [facility] [employer],non-owned Affiliates and Associated Physician Practices is amultiple site organization consisting of ambulatory clinics and hospital sitesin [place], [place], [place] and [place]. This disclosure is being madepursuant to the Care Everywhere program and may not contain all information available regarding this patient. Last updated 18.[facility] [employer] Allergies No known active allergies Medications * [...] Hypertriglyceridemia 12/26/2022 02/23/2023 Essential hypertension 07/23/2020 3 Encounters Date Type Department Care Team Description 10/09/2024 Telephone [facility] - Cardiothoracic Surgery [address] [place] [address], [place] [id number] Sonya Proctor RN Scheduling from Last 3 Months Family History Medical History Relation Name Comments Arthritis - Rheumatoid Father Cancer Father Hypertension Father Rashes/Skin Problems Father Cancer Maternal Grandfather Cancer Mother Hypertension Mother Cancer Paternal Grandfather Cancer Paternal Grandmother Diabetes Paternal Grandmother Diabetes Paternal Uncle Relation Name Status Comments Father Maternal Grandfather Mother Paternal Grandfather Paternal Grandmother Paternal Uncle Social History Tobacco Use Types Packs/Day Years [...] CDT Respiratory Rate 14 09/21/2023 9:52 AM SENIOR CONTROLS TECHNICIAN Oxygen Saturation 96% 04/11/2024 8:31 AM CDT Inhaled Oxygen Concentration - - Weight 88.2 kg (194 lb 8 oz) 05/21/2024 1:16 PM CDT Height 167.6 cm (5' 6 ) 05/21/2024 1:16 PM CDT Body Mass Index 31.39 05/21/2024 1:16 PM CDT Plan of Treatment Upcoming Encounters Date Type Department Care Team (Late st Contact Info) Description 12/09/2024 8:30 AM SENIOR CONTROLS TECHNICIAN Appointment [facility] [address] [place] [phone] French Bolaños MD [address] [place] [phone] 12/12/2024 9:00 AM SENIOR CONTROLS TECHNICIAN Office Visit [facility] [address] [place] [id number] French Bolaños MD [address] [place] [phone] Health Maintenance Due Date Last Done Comments COLOGUARD (AGES 45-75) - COL ON CA SCREENING 1969 COLON MONITORING 1969 COLONOSCOPY - COLON CA SCREENING 1969 CT COLONOGRAPHY - COLON CA SCREENING 1969 Colorectal Cancer Screening 1969 FIT - COLON CA SCREENING 1969 FLEX SIG - COLON CA SCREENING 1969 HIV SCREENING 1984 HEPATITIS C SCREENING 05/09/1987 DTAP/TDAP/TD VACCINES (1 - Tdap) 1988 HEPATITIS B VACCINE (1 of 3 - 19+ 3-dose series) 1988 PNEUMOCOCCAL VACCINE 50+ (1 of 1 - PCV) 2019 ZOSTER VACCINE (1 of 2) 2019 COVID-19 VACCINE (2023-2 5 season) 2024 11/25/2021, 05/11/2021, 04/20/2021 INFLUENZA VACCINE (#1) 2024 8, 10/22/2017 DEPRESSION SCREENING 10/15/2024 06/14/2022 SCREENING FOR DIABETES 07/03/2025 2, 07/03/2022 HIB VACCINE Aged Out No longer eligi ble based on patient's age to complete this topic HPV VACCINE Aged Out No longer eligi ble based on patient's age to complete this topic MENINGOCOCCAL (Group B) VACCINE Aged Out No longer eligible b ased on patient's age to complete this topic MENINGOCOCCAL VACCINE Aged Out No kate jordan eligible based on patient's age to complete this topic Procedures Procedure Name Priority Date/Time Associated Diagnosis [...] 46 U/L [facility] Comment: Test Performed at: [address] [facility] [address] [facility] [place] [address] GWEN PARK DO,MPH 07/03/2022 8:52 AM CDT 07/03/2022 8:53 AM CDT Eduard Boggs MD LAB - CHEMISTRY [facility] [address] [place] [address] from Last 3 Months or Most Recently Relevant to Health Maintenance Advance Directives * FULL RESUSCITATION (Latest Code Status on File) Date Activated Date Inactivated Comments 06/09/2013 7:10 PM 06/10/2013 11:40 AM Care Teams Rural Sociologist Relationship Specialty Start Date End Date Nik Hodgson MD [address] [facility] [address] [place] [address] PCP - General Internal Medicine 12/19/22
[2024-11-27 11:25] VITALS: BP 148/89; PULSE 67; RESP 16; TEMP 36.6; O2SAT 98
[2024-11-27] MEDS: LACTATED RINGERS 1,000 ML 150 ML IV CONT (11:33)
--- NOTE | 2024-11-27 11:46 | P.PNAN_ITS ---
Anes - Initial Pre Proc Eval Procedure: Operation Date: 11/27/24 14:30 Proposed Procedures p Esophagogastroduodenoscopy - Henry Najera MD Date/Time: 11/27/24 11:46 Surgeon: Henry Najera MD Pre Op Diagnosis: GERD Patient Data Age: 54 Gender: M Height: 1.68 m Weight: 86.6 kg Last Vital Signs Temp 36.6 C 11/27/24 11:25 Pulse 67 11/27/24 11:25 Resp 16 11/27/24 11:25 BP 148/89 H 11/27/24 11:25 Pulse Ox 98 11/27/24 11:25 O2 Del Method Room Air 11/27/24 11:25 Allergies Allergy/AdvReac Type Severity Reaction Status Date / Time No Known Allergies Allergy Verified 11/27/24 11:20 Home Medications ?Medication ?Instructions ?Recorded ?Confirmed ?Type ibuprofen PO PRN pain 12/03/19 07/07/24 History meloxicam PO 12/03/19 07/07/24 History amiloride 5 mg tablet 5 mg PO BID 04/05/23 11/27/24 History cetirizine 10 mg capsule (Zyrtec) 10 mg PO DAILY PRN allergy symptoms 04/05/23 11/27/24 History empagliflozin 25 mg tablet 25 mg PO DAILY 04/05/23 11/27/24 History (Jardiance) losartan 100 mg tablet 100 mg PO DAILY 04/05/23 11/27/24 History multivitamin with minerals-folic 1 tablet PO DAILY 04/05/23 11/27/24 History acid 400 mcg-lycopene 370 mcg tablet (One-A-Day Men's 50 Plus) nifedipine 60 mg tablet,extended 60 mg PO DAILY 04/05/23 11/27/24 History release omega 6-bxz-hgr-fish oil 300 1 cap PO DAILY 04/05/23 11/27/24 History mg-1,000 mg capsule (Fish Oil) omeprazole 20 mg capsule,delayed 20 mg PO DAILY 04/05/23 11/12/24 History release potassium gluconate 550 mg (90 mg) 550 mg PO DAILY 04/05/23 11/12/24 History tablet rosuvastatin 40 mg tablet 40 mg PO DAILY 04/05/23 11/12/24 History vitamin E (dl, acetate) 180 mg 180 mg PO DAILY 04/05/23 11/27/24 History (400 unit) capsule tadalafil 5 mg tablet 5 mg PO .qday 11/12/24 11/27/24 History testosterone 100 mg/mL 100 mg IM .qweek 11/12/24 11/27/24 History intramuscular suspension testosterone cypionate 200 mg/mL mg 11/12/24 History intramuscular oil Patient hx anesthesia problems: none Family hx anesthesia problems: none Results Review: All pre-operative results and documents have been reviewed as part of the pre- operative evaluation. [facility] Past Medical History Medical History Diabetes mellitus GERD (gastroesophageal reflux disease) Proteinuria DJD (degenerative joint disease) Hyperlipidemia CKD (chronic kidney disease) Rheumatoid arthritis involving both hands Sinus tarsi syndrome of right ankle Arthritis Hypertension Vision abnormalities Chondromalacia of left patellofemoral joint Surgical History Surgical History Status post carpal tunnel release of both wrists Status post cholecystectomy S/P cervical spinal fusion C5-C6 2002 Family History Family History Father Hypertension Patient's father is in good health Mother Hypertension Patient's mother is in good health Grandparent Diabetes mellitus Social History Social History Smoking status: Never smoker Alcohol intake: current Drinks per week: 1 Alcohol use details: Occasional Do You Feel Safe in your Home?: Yes Lack of Transportation: No Lack of Food: Never True Current Housing: I Have Housing Concerned About Future Housing: No Difficulty Paying Gas/Electric Bills: No Difficulty Paying for Meds: No Currently Unemployed: No Education: Associate Degree Difficulty w/ Childcare or Family Care: No Living arrangements: with family Gender identity (if verbalized by the patient): Male Sexual Orientation (if Verbalized by the Patient): Straight or Heterosexual Spiritual care concerns: No Anes - Eval Final PreProcedure Day of Procedure 11/27/24 11:46 Patient weight: overweight Heart: regular rate and rhythm Lungs: clear to auscultation Airway: Mallampati scale class II Neurological: alert and oriented Last oral intake: >/= 8 hours ASA classification: III Emergent: no Anesthetic plan: proceed Anesthesia type and monitoring: general GIVS and standard monitoring Results Review: All pre-operative results and documents have been reviewed as part of the pre- operative evaluation. Informed Consent: The patient's anesthetic plan and its attendant risks and benefits were discussed with the patient/family/POA. Questions were solicited and answers provided to the satisfaction of the patient/family/POA.
--- NOTE | 2024-11-27 12:13 | PM.HPGS ---
History of Present Illness History of Present Illness Consent: Risks, benefits, and alternatives have been discussed and questions answered. Patient agrees to proceed with procedure. Chief complaint: GERD Narrative: Filipe Conteh Jr. is a 54 year old male with gerd and sensation of liquids getting stuck, he took omeprazole for almost 25 years ago, last egd about 10 years ago Review of Systems Review of Systems: All systems reviewed & are unremarkable except as noted in HPI and below PMFSH Past Medical History Medical History (Updated 11/27/24 @ 12:14 by Henry Najera MD) Diabetes mellitus GERD (gastroesophageal reflux disease) Proteinuria DJD (degenerative joint disease) Hyperlipidemia CKD (chronic kidney disease) Rheumatoid arthritis involving both hands Sinus tarsi syndrome of right ankle Arthritis Hypertension Vision abnormalities Chondromalacia of left patellofemoral joint Surgical History Surgical History Status post carpal tunnel release of both wrists Status post cholecystectomy S/P cervical spinal fusion C5-C6 2002 Family History Family History Father Hypertension Patient's father is in good health Mother Hypertension Patient's mother is in good health Grandparent Diabetes mellitus Social History Social History Smoking status: Never smoker Alcohol intake: current Drinks per week: 1 Alcohol use details: Occasional Do You Feel Safe in your Home?: Yes Lack of Transportation: No Lack of Food: Never True Current Housing: I Have Housing Concerned About Future Housing: No Difficulty Paying Gas/Electric Bills: No Difficulty Paying for Meds: No Currently Unemployed: No Education: Associate Degree Difficulty w/ Childcare or Family Care: No Living arrangements: with family Gender identity (if verbalized by the patient): Male Sexual Orientation (if Verbalized by the Patient): Straight or Heterosexual Spiritual care concerns: No Meds Home Medications and Allergies Home Medications ?Medication ?Instructions ?Recorded ?Confirmed ?Type ibuprofen PO PRN pain 12/03/19 07/07/24 History meloxicam PO 12/03/19 07/07/24 History amiloride 5 mg tablet 5 mg PO BID 04/05/23 11/27/24 History cetirizine 10 mg capsule (Zyrtec) 10 mg PO DAILY PRN allergy symptoms 04/05/23 11/27/24 History empagliflozin 25 mg tablet 25 mg PO DAILY 04/05/23 11/27/24 History (Jardiance) losartan 100 mg tablet 100 mg PO DAILY 04/05/23 11/27/24 History multivitamin with minerals-folic 1 tablet PO DAILY 04/05/23 11/27/24 History acid 400 mcg-lycopene 370 mcg tablet (One-A-Day Men's 50 Plus) nifedipine 60 mg tablet,extended 60 mg PO DAILY 04/05/23 11/27/24 History release omega 4-bsg-ass-fish oil 300 1 cap PO DAILY 04/05/23 11/27/24 History mg-1,000 mg capsule (Fish Oil) omeprazole 20 mg capsule,delayed 20 mg PO DAILY 04/05/23 11/12/24 History release potassium gluconate 550 mg (90 mg) 550 mg PO DAILY 04/05/23 11/12/24 History tablet rosuvastatin 40 mg tablet 40 mg PO DAILY 04/05/23 11/12/24 History vitamin E (dl, acetate) 180 mg 180 mg PO DAILY 04/05/23 11/27/24 History (400 unit) capsule tadalafil 5 mg tablet 5 mg PO .qday 11/12/24 11/27/24 History testosterone 100 mg/mL 100 mg IM .qweek 11/12/24 11/27/24 History intramuscular suspension testosterone cypionate 200 mg/mL mg 11/12/24 History intramuscular oil Allergies Allergy/AdvReac Type Severity Reaction Status Date / Time No Known Allergies Allergy Verified 11/27/24 11:20 Vital Signs Vital Signs - 24 hr 11/27/24 11:25 Temperature 97.8 F Pulse Rate 67 Respiratory Rate 16 Blood Pressure 148/89 H Pulse Oximetry 98 Oxygen Delivery Room Air Exam Const: General: comfortable and no acute distress HENMT: Face/Nose/Sinus: Normal nares present Eyes: General: appearance normal, both eyes and all related structures Neck: Neck: no JVD Resp: Auscultation: clear to auscultation bilaterally Cardio: Rate: regular rate Rhythm: regular rhythm GI: Inspection: non-distended GI Palp: Yes Soft to palpation Skin: General skin exam: normal color Neuro: General: gait normal Speech: normal speech Extrem: General: normal to inspection Psych: Mental Status: mental status grossly normal Assessment and Plan Assessment and plan (1) GERD (gastroesophageal reflux disease): Code(s): K21.9 - Gastro-esophageal reflux disease without esophagitis Status: Acute Assessment and Plan: egd with bx
[2024-11-27 12:32] VITALS: BP 133/82; PULSE 61; RESP 20; O2SAT 96
[2024-11-27 12:42] VITALS: BP 143/91; PULSE 60; RESP 20; O2SAT 98
[2024-11-27 12:52] VITALS: BP 148/86; PULSE 61; RESP 20; O2SAT 98
== END 2024-11-27 13:03 | disposition home or self-care (01) ==
PROVIDERS: PCP Internal Medicine; Visit Provider Internal Medicine Gastroenterology
PROC: 0DJ08ZZ Inspection of Upper Intestinal Tract, Via Natural or Artificial Opening Endoscopic (ICD-10-PCS; CPT 43239; principal; 2024-11-27 14:30)
DX: K21.9 Gastro-esophageal reflux disease without esophagitis (principal); E11.22 Type 2 diabetes mellitus with diabetic chronic kidney disease; I12.9 Hypertensive chronic kidney disease with stage 1 through stage 4 chronic kidney disease, or unspecified chronic kidney disease; N18.9 Chronic kidney disease, unspecified; E78.5 Hyperlipidemia, unspecified; M06.842 Other specified rheumatoid arthritis, left hand; M06.841 Other specified rheumatoid arthritis, right hand; M25.571 Pain in right ankle and joints of right foot; Z79.1 Long term (current) use of non-steroidal anti-inflammatories (NSAID); Z79.84 Long term (current) use of oral hypoglycemic drugs; Z98.890 Other specified postprocedural states; Z90.49 Acquired absence of other specified parts of digestive tract; Z98.1 Arthrodesis status
CPT/HCPCS: 43239; 88305; J2003; J2704; J7120

== ENCOUNTER 2025-01-08 08:57 | Outpatient (CLI) | payer OTHER, SELFPAY ==
--- NOTE | ~2025-01-08 | MR_ITS ---
MR cervical spine wo con Ordering provider: Nik HodgsonMD History: 54 years Male with . cervicalgia . Comparison: February 26, 2013 Technique: MRI cervical spine without contrast. FINDINGS: CERVICAL SPINAL CORD/CRANIAL CERVICAL JUNCTION: Normal in signal and caliber. CERVICAL VERTEBRAL BODIES: Status post fusion at the level of C5-C6. Otherwise, Normal height and ali gnment. Normal marrow signal. Minimal kyphosis is seen centered at C7-T1. DISK SPACES: Normal. Multilevel facet joint disease. C2-C3: No stenosis. Slight narrowing of the right intervertebral foramen by osteophyte or focal disc bulge. C3-C4: No stenosis. Diffuse disc bulge with bilateral narrowing of the foramina with nerve root compr ession. C4-C5: No stenosis. C5-C6: No stenosis. C6-C7: No stenosis. Mild disc bulge. Narrowing of the left foramen C7-T1: No stenosis. Narrowing of the left foramen by osteophyte formation. VISUALIZED PARASPINOUS SOFT TISSUES: Normal. IMPRESSION: 1. Postoperative changes at the level of C5-C6. 2. Multilevel narrowing of the intervertebral foramina. Reviewed, dictated and finalized at location A.
== END 2025-01-08 08:58 | disposition home or self-care (01) ==
PROVIDERS: PCP Internal Medicine; Visit Provider Internal Medicine
DX: M99.71 Connective tissue and disc stenosis of intervertebral foramina of cervical region (principal)
CPT/HCPCS: 72141

== ENCOUNTER 2025-02-10 11:11 | Outpatient (CLI) | payer BC, SELFPAY ==
[2025-02-10 11:34] LABS: Basophils Absolute Auto 0.1 K/mm3 (0.0-0.1); Basophils Percent Auto 0.8 % (0.2-1.2); Eosinophils Absolute Auto 0.1 K/mm3 (0-0.3); Eosinophils Percent Auto 1.7 % (0-4.4); Hematocrit 50.3 % (42.0-52.0); Hemoglobin 16.3 g/dL (14.0-18.0); Immature Granulocyte Absolute 0.04 K/mm3 (0.00-0.031); Immature Granulocyte Percent A 0.6 % (0-0.5); Lymphocytes Absolute Auto 1.57 K/mm3 (0.9-3.2); Lymphocytes Percent Auto 22.1 % (18.3-44.2); Mean Corpuscular HGB Conc 32.4 g/dl (32-36); Mean Corpuscular Hemoglobin 28.2 pg (26-34); Mean Corpuscular Volume 86.9 fl (80-100); Monocytes Absolute Auto 0.7 K/mm3 (0.1-0.6); Monocytes Percent Auto 9.9 % (2.6-8.5); Neutrophils Absolute Auto 4.6 K/mm3 (1.3-6.7); Neutrophils Percent Auto 64.9 % (45.5-73.1); Platelet Count Result 203 k/mm3 (150-375); Red Blood Count 5.79 M/mm3 (4.6-6.20); Red Cell Distribution Width 14.2 % (11.5-14.5); White Blood Count 7.1 K/mm3 (4.5-10.0)
--- OUTSIDE RECORDS SUMMARY | 2025-02-10 12:37 | XMS_ITS | Encounter Summary ---
Author Organization [facility] Address [address] [facility] [place] [address] Phone Care Team Providers Care Precision Grinder External Name Role Phone Nik Hodgson MD Primary Care Provider [phone] Reason for Visit * Reason Comments Med Refill Encounter Details Date Type Department Care Team (Late st Contact Info) Description 05/30/2021 Refill [place] [facility] [place], [facility] [address] [place] [address] [address] [place] [address] Cedrick Foster DO [address] [facility] [address] [place] [address] Social History Tobacco Use Types [...] on filedocumented in this encounter Care Teams Precision Grinder External Relationship Specialty Start Date End Date Nik Hodgson MD [address] [facility] [place] [address] PCP - General Internal Medicine 07/07/21 documented as of this encounter
--- OUTSIDE RECORDS SUMMARY | 2025-02-10 12:37 | XMS_ITS | Encounter Summary ---
Author Organization [facility] [employer] [facility] Address [address] [place] [address] Care Team Providers Care Collar Starcher Name Role Phone Unavailable Primary Care Provider Unavailabl e Reason for Visit * Reason Comments Establish Care Encounter Details Date Type Department Care Team (Late st Contact Info) Description 02/10/2025 10:30 AM CDT Office Visit [facility] Oncology and Hematology - Jonathon [address] [place] [address] Roberta Gillis MD [address] [place] [address] Polycythemia, secondary (Primary Dx); Iron deficiency anemia, unspecified iron deficiency anemia type Social History Tobacco Use Types Packs/Day Years Used Date Smoking Tobacco: Never Smokeless Tobacco: Never Tobacco Cessation:Counseling Given: Not Answered Alcohol Use Standard Drinks/Week Comments Yes 0 (1 standard drink = 0.6 oz pur e alcohol) occasional Sex and Gender Information Value Date Recorded Sex Assigned at Not on file Legal Sex Male 1:02 PM DIRECTOR OF INFECTION PREVENTION Gender Identity Not on file Sexual Orientation Not on file documented as of this encounter Last Filed Vital Signs Vital Sign Reading Time Taken Comments Blood Pressure 166/92 02/10/2025 10:37 AM CDT Pulse 71 02/10/2025 10:33 AM CDT Temperature 36.6 C (97.8 F) 02/10/2025 10:33 AM CDT Respiratory Rate 16 02/10/2025 10:33 AM CDT Oxygen Saturation 96% 02/10/2025 10:33 AM CDT Inhaled Oxygen Concentration - - Weight 86.6 kg (191 lb) 02/10/2025 10:33 AM CDT Height 165.1 cm (5' 5 ) 02/10/2025 10:33 AM CDT Body Mass Index 31.78 02/10/2025 10:33 AM CDT documented in this encounter Progress Notes * Roberta Gillis MD - 02/10/2025 11:06 AM CDT Hematology-oncology consult Note Requesting Physician Primary Care Physician Dr. Hodgson Problem list There is no problem list on file for this patient. Reason for Visit Filipe Conteh is a 54 y.o. 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 Patient has a history of hypogonadism and has been on testosterone 200 mg IM injection every week by his primary care physician. Danitza ent is also noted to have chronic polycythemia with hematocrit 51 on 08/06/2024, 52.3 on 09/26/2024, 51.5 on 01/06/2025, 52.3 on 02/03/2025. Patient reports that he is told by PCP and urologist that high hematocrit is driving his hypertension. He is asked to see a stone banker to formulate managementplan for secondary polycythemia. Patient reports that he sees a urologist for testosterone injection management.Testosterone level was more than 1000 about 3 weeks ago he was asked to hold testosterone. Repeat testosterone levels on02/03/2025 dropped down to 153 and patient has restarted his weekly testosterone injections. Patientreports that he cannot function without testosterone supplementation. Patient reports that he gets daily headaches but also has cervical fusion and has another pinched nerve in the cervical spine. 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 Patient reports blurry or double vision when he gets up from sleep. He reports dizziness when he gets up too fast. There has been no CVA or TIA. Patient is a never smoker. Patient does have obstructive sleep apnea and is compliant on his CPAP machine. Past Medical History Past Medical History: Diagnosis Date Hyperlipidemia Hypertension Surgical History Past Surgical History: Procedure Laterality Date HX CARPAL TUNNEL RELEASE Bilateral 2000 HX CERVICAL FUSION 2002 HX CHOLECYSTECTOMY 2009 HX DISC REMOVAL 2013 Medications Current Outpatient Medications Medication Sig Dispense Refill losartan (COZAAR) 100 mg tablet Take 100 mg by mouth daily. rosuvastatin (CRESTOR) 40 mg tablet Take 40 mg by mouth daily. Voquezna 20 mg Tablet Take 20 mg by mouth daily. NIFEdipine (PROCARDIA XL) 30 mg Extended Release 24 hour tablet Take 30 mg by mouth daily at bedtime. aMILoride (MIDAMOR) 5 mg tablet Take 10 mg by mouth daily. Jardiance 25 mg tablet Take 25 mg by mouth daily in the morning. testosterone cypionate (DEPO-TESTOSTERONE) 200 mg/mL Oil Inject 200 mg by intramuscular injection every 7 days. DOCOSAHEXAENOIC ACID ORAL Fish Oil unspecified unspecified tadalafil (CIALIS) 5 mg tablet Take 5 mg by mouth daily. vitamin E, dl,tocopheryl acet, (vitamin E, DL,acetate,) 180 mg (400 unit) Capsule Take 400 Units bymouth daily. multivitamin (MULTIPLE VITAMIN ORAL) Take 1 Tablet by mouth daily. potassium CHLORIDE (K-DUR,KLOR-CON M20) 20 mEq Extended Release tablet Take 20 mEq by mouth daily. cetirizine (ZyrTEC) 10 mg tablet Take 10 mg by mouth daily. No current facility-administered medications for this visit. Allergies No Known Allergies Immunizations: There is no immunization history on file for this patient. Family History Family History Problem Relation Name Age of Onset Skin Cancer Father Heart Disease Father Diabetes Father Heart Disease Mother No Known Problems Child No Known Problems Child No Known Problems Child No Known Problems Child Social History Social History Tobacco Use Smoking status: Never Smokeless tobacco: Never Substance Use Topics Alcohol use: Yes Comment: occasional Review of Systems Constitutional: Patient did not mention fever; no night sweats; no anorexia; no weight loss; no fatique NEENT: Patient has daily headaches from stress and cervical spine pain; no change in vision; no change in hearing; no sore throat; no dysphagia Respiratory: Patient did not mention shortness of breath; no pleuritic chest pain; no cough; no hemoptysis Cardiac: Patient did not mention cardiac-like chest pain; no palpitations; no orthopnea; no PND; noDOE GI: Patient did not mention abdominal pain; no nausea; no vomiting; no diarrhea; no hematochezia; no melena : Patient did not mention dysuria; he has increased frequency and urgency. No hematuria Musculosketetal: Patient did not mention bone pain; no arthralgia; no joint swelling; no myalgia; Skin: Patient did not mention pruritis; no rash; no petechiae; no ecchymoses Endocrine: Patient did not mention polydipsia; no polyuria; no unusual weight gain Neuro: Patient has daily headaches from stress and cervical spine pain. Reports double vision or blurry vision when gets up in the morning or after nap. No sensory changes; no muscle weakness; no confusion; no seizures. Reports dizziness when he gets up too fast. Psych: Patient did not mention anxiety; no depression; Physical Exam Vitals: As per nursing note Constitutional: Well developed, well nourished, no acute distress, non-toxic appearance Teeth and gum. No signs of infection or swelling. Eyes: PERRL, conjunctiva normal HEENT: Atraumatic, external ears normal, nose normal, oropharynx moist, no pharyngeal exudates. no sinus tenderness Neck- normal range of motion, no tenderness, supple Respiratory: No respiratory distress, normal breath sounds, no rales, no wheezing Cardiovascular: Normal rate, normal rhythm, no murmurs, no gallops, no rubs GI: Soft, nondistended, normal bowel sounds, nontender, no splenomegaly, no hepatomegaly, no mass, no rebound, no guarding : No costovertebral angle tenderness Musculoskeletal: No edema, no tenderness, no deformities. Back- no tenderness Integument: Well hydrated, no rash, Digits and nails inspection normal Lymphatic: No lymphadenopathy noted Neurologic: Alert & oriented x 3, CN 2-12 normal, normal motor function, normal sensory function, no focal deficits noted Psychiatric: Speech and behavior appropriate ? labs 08/06/2024 CBC-WBC 9.7, hemoglobin 16, hematocrit 51, platelet 220 K. PSA 0.78 09/26/2024 CBC-WBC 6.5, hemoglobin 16.3, hematocrit 52.3, platelet 200 K 01/06/2025 CBC-WBC 6.9, hemoglobin 16.2, hematocrit 51.5, platelets 183 K 02/03/2025-hematocrit 52.3 Performance Status?ECOG performance status 0 Assessment / Plan: This is a 54-year-old male with- Secondary polycythemia- Patient has a history of hypogonadism and has been on testosterone 200 mg IM injection every week by his primary care physician. Patient is also noted to have chronic polycythemia with hematocrit 51 on 08/06/2024, 52.3 on 09/26/2024, 51.5 on 01/06/2025, 52.3 on 02/03/2025. Patient reports that he is told by PCP and urologist that high hematocrit is aggravating his hypertension. He is asked to see ahematologist to formulate management plan for secondary polycythemia. Patient is a never smoker. Patient does have obstructive sleep apnea and is compliant on his CPAP machine. Patient reports that he cannot function without testosterone supplementation. patient has headacheswhich could be related to his cervical spine DJD however there could be a contribution from high hematocrit. I am getting erythropoietin levels to rule out other causes of polycythemia. I am also getting fulliron panel and ferritin before he undergoes therapeutic phlebotomy. I have ordered 2 therapeutic phlebotomies 2 weeks apart. Patient will then see Dr. Abdi in about 4 to 6 weeks with repeat labs. TOBACCO COUNSELING He is not a tobacco/nicotine user. Roberta Gillis MD ,02/10/2025 11:06 AM ? Total time spent 60 minutes, two third of the total time spent counseling patient [id number]. CC:? documented in this encounter Plan of Treatment Upcoming Encounters Date Type Department Care Team (Late st Contact Info) Description 03/24/2025 2:30 PM CDT Office Visit [facility] Oncology and Hematology - [place] [address] [place] [address] [facility] [address] [place] [address] Amandeep Abdi MD [address] [facility] [address] [place] [address] Scheduled Orders Name Type Priority Associated Diagnoses Orde r Schedule CBC WITH DIFFERENTIAL Lab Routine Polycythemia, secondary Expected: 02/10/2025, Expires: 02/10/2026 ERYTHROPOIETIN LEVEL Lab Routine Polycythemia, secondary Expected: 02/10/2025, Expires: 02/10/2026 IRON, TIBC, AND PERCENT SATURATION Lab Routine Iron deficiency anemia, unspecified iron deficiency anemia type Expected: 02/10/2025, Expires: 02/10/2026 FERRITIN Lab Routine Iron deficiency anemia, unspecified iron deficiency anemia type Expected: 02/10/2025, Expires: 02/10/2026 documented as of this encounter Visit Diagnoses Diagnosis Polycythemia, secondary- Primary Iron deficiency anemia, unspecified iron deficiency anemia type documented in this encounter
--- OUTSIDE RECORDS SUMMARY | 2025-02-10 12:37 | XMS_ITS | Clinical Summary ---
Author Organization [facility] [place] Address [address] [place] [id number] Care Team Providers Care Flavorings Compounder Name Role Phone Clayton Morrison DO Primary Care Provider [phone]- [phone] Allergies No known active allergies Medications AMILoride (MIDAMOR) 5 mg tablet Take 2 tablets (10 mg total) by mouth daily Active Jardiance 25 mg tablet Take 1 tablet (25 mg total) by mouth every morning Active ergocalciferol (VITAMIN D) 50,000 unit capsule Take 1 capsule every week by oral route. Active hydroCHLOROthia zide (MICROZIDE) 12.5 mg capsule Take by mouth daily 0 Active losartan (COZAAR) 100 mg tablet Take 1 tablet (100 mg total) by mouth daily 2 Active metoprolol tartrate (LOPRESSOR) 25 mg immediate release tablet Take 0.5 tablets every day by oral route for 90 days. Active rosuvastatin (CRESTOR) 40 mg tablet Take 1 tablet (40 mg total) by mouth daily Active NIFEdipine (NIFEdipine XL) 60 mg 24 hr tablet Take 1 tablet every day by oral route for 90 days. 3 Active omega 4-wdw-kei-fish oil (Fish OiL) 60-90-500 mg capsule Fish Oil unspecified unspecified Active potassium chloride ER 20 mEq CR tablet Take by mouth Ac tive testosterone cypionate (DEPO-TESTOTERO NE) 200 mg/mL injection ADMINISTER 0.75 ML IN THE MUSCLE EVERY WEEK Active tadalafiL (CIALIS) 5 mg tablet Take 1 tablet (5 mg total) by mouth daily Active Voquezna 20 mg tablet Take 1 tablet every day by oral route as needed for 90 days. 4 Active Active Problems No known active problems Encounters Date Type Department Care Team Description 12/19/2024 5:45 PM FIELD PROFESSIONAL Office Visit [facility] at [address] [address] Shannan Jolly NP Acute cough (Primary Dx); Neck pain on left side from Last 3 Months Family History Medical History Relation Name Comments Hypertension Father Family history of hypertension - (Added by TW Conv) Hypertension Mother Family history of hypertension - (Added by TW Conv) Relation Name Status Comments Father Mother Social History Tobacco Use Types Packs/Day Years Used Date Smoking Tobacco: Never Assessed Sex and Gender Information Value Date Recorded Sex Assigned at Not on file Legal Sex Male 2:13 AM FIELD PROFESSIONAL Gender Identity Not on file Sexual Orientation Not on file Obstetrics History Last Filed Vital Signs Vital Sign Reading Time Taken Comments Blood Pressure 156/90 12/19/2024 6:10 PM FIELD PROFESSIONAL Pulse 55 12/19/2024 6:10 PM FIELD PROFESSIONAL Temperature 36.9 C (98.5 F) 12/19/2024 6:10 PM FIELD PROFESSIONAL Respiratory Rate 20 12/19/2024 6:10 PM FIELD PROFESSIONAL Oxygen Saturation 96% 12/19/2024 6:10 PM FIELD PROFESSIONAL Inhaled Oxygen Concentration - - Weight 89.4 kg (197 lb) 12/19/2024 6:10 PM FIELD PROFESSIONAL Height 170.2 cm (5' 7 ) 02/27/2017 10:18 AM CDT Body Mass Index 30.85 02/27/2017 10:18 AM CDT Plan of Treatment Health Maintenance Due Date Last Done Comments Colon Cancer Screening-Colonoscopy 1969 Depression Screening 1969 Hepatitis C Screening 1969 Prostate Cancer Screening-PSA 1969 Hepatitis B Screening 1987 Regular Well Visit/Exam 18-64 1987 Zoster Vaccine (1 of 2) 2019 Covid-19 Vaccine ( season) 2024 11/25/2021, 11/25/2021, 05/11/2021, Additional history exists Influenza Vaccine (#1) 2024 12/02/2017, 2017 DTaP/Tdap/Td Vaccine (2 - Td or Tdap) 10/22/2027 10/22/2017 Pneumococcal vaccine <65 Aged Out No longer eligible based on patient's age to complete this topic Procedures Procedure Name Priority Date/Time Associated Diagnosis Comments POC INFLUENZA A/B, COVID-19 ANTIGEN Routine 12/19/2024 6:32 PM FIELD PROFESSIONAL Acute cough from Last 3 Months Results * POC Influenza A/B, COVID-19 antigen (12/19/2024 6:32 PM FIELD PROFESSIONAL) Influenza A Ag, POC Negative Negative [facility] Influenza B Ag, POC Negative Negative [facility] COVID-19 Ag POC Presumptive Negative Presumptive Negative, Invalid [facility] Nasal 12/19/2024 6:32 PM FIELD PROFESSIONAL us Shannan Jolly SNOW PLOW TRACTOR OPERATOR POINT OF CARE TEST ORDERAB LES Final [facility] [address] [place] [address], [facility] from Last 3 Months Insurance [employer] PPO [place] Care Teams Flavorings Compounder Relationship Specialty Start Date End Date Clayton Morrison DO PCP - General 02/12/17
--- OUTSIDE RECORDS SUMMARY | 2025-02-10 12:37 | XMS_ITS | Referral Summary ---
Author Organization [address] Address [address] [place] [address] Care Team Providers Care Marble Installer Name Role Phone Clayton Morrison DO Primary Care Provider +1- [phone] Encounters Date Type Department Care Team Description 12/19/2024 5:45 PM PLUG MAKER Office Visit [facility] at [address] [address] Shannan Jolly, BENJA Acute cough (Primary Dx); Neck pain on left side from Last 3 Months Allergies No known active allergies Medications AMILoride [...] route for 90 days. 3 Active omega 6-yub-ifz-fish oil (Fish OiL) 60-90-500 mg capsule Fish [...] oral route as needed for 90 days. Active Active Problems No known active problems Social History Tobacco Use Types Packs/Day Years Used Date Smoking Tobacco: Never Assessed Sex and Gender Information Value Date Recorded Sex Assigned at Not on file Legal Sex Male 2:13 AM PLUG MAKER Gender Identity Not on file Sexual Orientation Not on file Last Filed Vital Signs Vital Sign Reading Time Taken Comments Blood Pressure 156/90 12/19/2024 6:10 PM PLUG MAKER Pulse 55 12/19/2024 6:10 PM PLUG MAKER Temperature 36.9 C (98.5 F) 12/19/2024 6:10 PM PLUG MAKER Respiratory Rate 20 12/19/2024 6:10 PM PLUG MAKER Oxygen Saturation 96% 12/19/2024 6:10 PM PLUG MAKER Inhaled Oxygen Concentration - - Weight 89.4 kg (197 lb) 12/19/2024 6:10 PM PLUG MAKER Height 170.2 cm (5' 7 ) 02/27/2017 10:18 AM CDT Body Mass Index 30.85 02/27/2017 10:18 AM CDT Plan of Treatment Not on file Procedures Procedure Name Priority Date/Time Associated Diagnosis Comments POC INFLUENZA A/B, COVID-19 ANTIGEN Routine 12/19/2024 6:32 PM PLUG MAKER Acute cough from Last 3 Months Results * POC Influenza A/B, COVID-19 antigen (12/19/2024 6:32 PM PLUG MAKER) Influenza A Ag, POC Negative Negative [facility] Influenza B Ag, POC Negative Negative [facility] COVID-19 Ag POC Presumptive Negative Presumptive Negative, Invalid [facility] Nasal 12/19/2024 6:32 PM PLUG MAKER us Shannan Jolly NP POINT OF CARE TEST ORDERAB LES Final Result [facility] EDW [address] [place] [address], [facility] from Last 3 Months Insurance [employer] PPO [place] Care Teams Marble Installer Relationship Specialty Start Date End Date Clayton Morrison DO PCP - General 02/12/17
--- OUTSIDE RECORDS SUMMARY | 2025-02-10 12:37 | XMS_ITS | Encounter Summary ---
Author Organization [facility] Address [address] [facility] [place] [address] Care Team Providers Care Civil Engineer'S Aide Name Role Phone Nik Hodgson MD Primary Care Provider Reason for Visit * Reason Onset Date Comments Scheduling 10/09/2024 Encounter Details Date Type Department Care Team (Late st Contact Info) Description 10/09/2024 Telephone [facility] - Cardiothoracic Surgery [address] [place] [address], [place] [id number] Sonya Proctor RN Scheduling Social History Tobacco Use Types Packs/Day Years Used Date Smoking Tobacco: Never Smokeless Tobacco: Never Alcohol Use Standard Drinks/Week Comments Yes 0 (1 standard drink = 0.6 oz pur e alcohol) rare PHQ-2 Answer Date Recorded PHQ2 TOTAL SCORE 0 06/14/2022 Sex and Gender Information Value Date Recorded Sex Assigned at Not on file Legal Sex Male 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 Gender Identity Not on file Sexual Orientation Not on file 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 [address] [place] [phone] French Bolaños MD [address] [place] [phone] documented as of this encounter Visit Diagnoses Not on filedocumented in this encounter Care Teams Civil Engineer'S Aide Relationship Specialty Start Date End Date Nik Hodgson MD [address] [facility] [address] [place] [phone] PCP - General Internal Medicine 12/19/22 documented as of this encounter
--- OUTSIDE RECORDS SUMMARY | 2025-02-10 12:37 | XMS_ITS | CONTINUITY OF CARE DOCUMENT ---
Author Name serge valentine Address Unknown Organization [facility] Address [address] [place] [address] Phone [phone] Care Team Providers Care Cell Phone Repair Technician Name Role Phone Sariah GAFFNEY, Amado Doll Unavailable [phone] JEN HUMPHRIES MD Unavailable CRISTINA DEL RIO MD Unavailable PROBLEMS Condition Status Date Provider Notes SHAKIR, severe active Amado Rolle MD Cardiology examination active Amado fuller MD Diabetes, Type 2 active Amado Rolle MD Hyperlipidemia active Amado Rolle MD Hypertension active Amado Rolle MD Fatigue active Amado Rolle MD Sleep apnea active Amado Rolle MD CKD stage 2 GFR 60-89 active Amado hernandez MD Headache, unspecified active Amado hernandez MD AAA active Amado Rolle MD Bradycardia - sinus active Amado Rolle MD Preop cardiovasc. examination active Humble Rolle MD ENCOUNTERS Date Type Provider Location Encounter Diag nosis - In-person encounter Office Visit Amado Rolle MD [facility] - In-person encounter Office Visit Amado [place] [facility] Preop cardiovasc. examination - In-person encounter Office Visit Amado Rolle MD [facility] Headache, unspecifiedAAABradycardia - sinus - In-person encounter Office Visit Amado Rolle MD [facility] Cardiology examinationDiabetes, Type 2HyperlipidemiaHypertensionFati gueSleep apneaCKD stage 2 GFR 60-89 VITAL SIGNS Date Observation Value Provider Body Mass Index (Ratio) 33.94 kg/m2 Rip Iorfida blood pressure, diastolic 68 mm[Hg] Sania nkLogic blood pressure, systolic 138 mm[Hg] Eileen kLog oxygen saturation, oximetry 95 % [facility] pulse rate 63 /min [facility] blood pressure, cuff size regular [facility] blood pressure, diastolic 68 mm[Hg] [facility] blood pressure, systolic 138 mm[Hg] [facility] E&M 16 /min Minoo joseph weight E&M 204 [lb_av] [facility] height E&M 65 [in_i] [facility] Body Mass Index (Ratio) 33.61 kg/m2 Jacquelyn Rolle MD blood pressure, diastolic 80 mm[Hg] An myke Italo blood pressure, systolic 142 mm[Hg] Any a Italo pulse rate 63 /min Rena Italo oxygen saturation, oximetry 97 % Renaanmol Puckett weight E&M 202 [lb_av] Rena Italo blood pressure, cuff size large An myke Italo height E&M 65 [in_i] Rena Italo Body Mass Index (Ratio) 33.28 kg/m2 Jacquelyn Rolle MD blood pressure, diastolic 77 mm[Hg] Sania monLogic blood pressure, systolic 141 mm[Hg] Eileen respiratory rate E&M 12 /min Isma blood pressure, cuff size regular Ja rret blood pressure, diastolic 77 mm[Hg] Ja rret blood pressure, systolic 141 mm[Hg] Jar ret weight E&M 200 [lb_av] Isma y pulse rate 57 /min Isma y oxygen saturation, oximetry 97 % Isma height E&M 65 [in_i] Isma y Body Mass Index (Ratio) 33.44 kg/m2 Jacquelyn Rolle MD blood pressure, diastolic 62 mm[Hg] Li nkLogic blood pressure, systolic 148 mm[Hg] Eileen ic blood pressure, cuff size regular Ke rri Gruenenfelder blood pressure, diastolic 62 mm[Hg] Ke rri Gruenenfelder blood pressure, systolic 148 mm[Hg] Olivia ri Grtoñonenfelder oxygen saturation, oximetry 95 % Anay Kaminskielder respiratory rate E&M 12 /min Anay G gabbieenenfelder pulse rate 63 /min Anay Bubbanfe lder weight E&M 201 [lb_av] Anay Grtoñonenfe lder height E&M 65 [in_i] Anay Grtoñonenfe lder ALLERGIES No Known Drug Allergies RESULTS Date Observation Value Provider Reference Range Interpretation Location 2 prothrombin time (patient) 10.9 s Link[facility] 9.0-11.5 Normal 2 international normalized ratio (INR) 1.0 [facility] Normal 2 basophils as percent of blood leukocytes 0.7 % [facility] Normal 2 eosinophils as percent of blood leukocytes 3.5 % [facility] Normal 2 monocyte count, blood 11.5 % [facility] Normal 2 lymphocyte count, blood 32.2 % [facility] Normal 2 neutrophils as percent of blood leukocytes 52.1 % [facility] Normal 2 basophils, absolute, manual 50 cells/mcL [facility] 0-200 Normal 2 eosinophils, absolute, manual 252 cells/mcL [facility] 15-500 Normal 2 monocytes, absolute, manual 828 cells/mcL [facility] 200-950 Normal 2 lymphocytes, absolute 2318 CELLS/UL [facility] 850-3900 Normal 2 Absolute Neutrophil count 3751 cells/mcL [facility] 8337-9871 Normal 2 mean platelet volume 11.0 fL [facility] 7.5-12.5 Normal 2 platelet count 175 THOUSAND/U L [facility] 140-400 Normal 2 red blood cell distribution width 12.7 % [facility] 11.0-15.0 Normal 2 mean corpuscular hemoglobin concentration, RBC 32.5 G/DL [facility] 32.0-36.0 Normal 2 mean corpuscular hemoglobin, RBC 30.2 pg [facility] 27.0-33.0 Normal 2 mean corpuscular volume, RBC 93.1 fL [facility] 80.0-100.0 Normal 2 hematocrit, blood 45.9 % [facility] 38.5-50.0 Normal 2 hemoglobin electrophoresis, blood 14.9 [facility] 13.2-17.1 Normal 2 erythrocyte (RBC) count 4.93 MILLION/UL [facility] 4.20-5.80 Normal 2 leukocyte (white blood cells) count, blood 7.2 THOUSAND/U L [facility] 3.8-10.8 Normal 2 calcium, serum 8.8 mg/dL [facility] 8.6-10.3 Normal 2 carbon dioxide, venous blood 25 mmol/L [facility] 20-32 Normal 2 chloride, serum 107 mmol/L [facility] 98-110 Normal 2 potassium, serum 4.1 mmol/L [facility] 3.5-5.3 Normal 2 sodium, serum 139 mmol/L [facility] 135-146 Normal 2 urea nitrogen/creatinin e ratio, serum 12 (calc) [facility] 6-22 Normal 2 creatinine, serum 1.40 mg/dL [facility] 0.70-1.30 High 2 urea nitrogen, blood 17 mg/dL [facility] 7-25 Normal 2 blood glucose, random 155 mg/dL [facility] 65-99 High 2 cholesterol, non-HDL, total 73 MG/DL (CALC) Link[facility]ic <130 Normal 2 cholesterol/HDL ratio, serum, percent 3.1 (calc) [facility] <5.0 Normal 2 LDL cholesterol, serum 48 MG/DL (CALC) [facility] Normal 2 triglyceride, serum, fasting 186 mg/dL [facility] <150 High 2 HDL cholesterol, serum 34 mg/dL [facility] > OR = 40 Low 2 cholesterol, serum 107 mg/dL [facility] <200 Normal HISTORY OF MEDICATION USE Medication Status Instructions Dates Provider Indications Com ments rosuvastatin 40 mg tablet active Take 1 tablet by mouth once a day Ferdinand Pinon NP Jardiance 25 mg tablet active TAKE 1 TABLET BY MOUTH ONCE DAILY Ferdinand Pinon NP potassium chloride 20 mEq tablet extended release active Take 1 tablet by mouth once a day Ferdinand Pinon NP losartan 100 mg tablet active TAKE 1 TABLET BY MOUTH DAILY Ferdinand Pinon NP nifedipine 60 mg tablet extended release 24hr active TAKE 1 TABLET EVERY DAY Ferdinand Pinon NP meloxicam 7.5 mg tablet active Take 1 tablet by mouth once daily as needed Ferdinand Pinon NP amiloride 5 mg tablet active Take 2 tablets by mouth once daily Ferdinand Pinon NP omeprazole 20 mg tablet,delayed release (DR/EC) active Take 1 tablet by mouth once a day Anay Castillo Zyrtec 10 mg tablet active Take 1 tablet by mouth once a day Anay Castillo Fish Oil unspecified unspecified active Take 1 capsule by mouth once daily Ferdinand Pinon NP SOCIAL HISTORY Date Observation Value Provider smoking status Never smoker Minoo Key number of grandchildren Amado Rolle MD social history E&M S moking History: David gray has never smoked. Amado Rolle MD social history reviewed E&M revi ewed - no changes required Amado Rolle MD smoking status Never smoker Rena Puckett smoking status Never smoker Amado fuller MD social history reviewed E&M revi ewed - no changes required Amado Rolle MD INSURANCE PROVIDERS Payer name Policy type / Coverage type [place] red republican ID [facility] [id number] ADVANCE DIRECTIVES Name Date DISCUSSED - NO DECISION MADE TREATMENT PLAN Date Name Performer [id number],Giselle Morris e is planning on having his thymus removed at [facility].Prior hx of aspiration. Will arrange for [facility] to evaluate his aorta; Amado Rolle MD [id number],Giselle Chau is planning on having his thymus removed at [facility].Prior hx of aspiration. Will arrange for [facility] to evaluate his aorta; IMPRESSION: 1 . Widely patent coronary vasculature. 2 . Overall normal right heart catheterization pressures. 3 . Mildly elevated systolic blood pressure. 4 . Elevated LVEDP. 5 . No left ventriculogram. RECOMMENDATIONS: At present recommendation for continued medical management in this patient. We will consider getting a transesophageal echo to evaluation the aortic root size. Amado Rolle MD [id number],CC ONCLUSIONS: 1 . Normal left ventricular systolic function. Normal left ventricular size. Normal left ventricular wall thickness. Normal left v entricular diastolic function. E/E': 11.4 Left ventricular ejection fraction is measured at 63 %. 2 . Normal right ventricular size. Normal right ventricular systolic function. 3 . Normal appearing tricuspid valve leaflets. There is mild tricuspid regurgitation. IVC is normal in size with normal r espiratory response. The RA pressure is estimated at 5.0 mmHg Estimated peak pulmonary artery systolic pressure is 35.0 mmHg. 4 . Pulmonic valve leaflets appear structurally normal. Normal pulmonic valve velocities by Doppler. There is mild pulmonic r egurgitation. 5 . Normal aortic root size. Aortic root is dilated at the level of the sinus. Sinus of Valsalva is 4.20 cm Ascending Aorta is 4.20 c m. Amado Rolle MD [id number],C,C ONCLUSIONS: 1 . Sinus bradycardia. Otherwise, this is a normal resting EKG. 2 . Rare PVCs seen during stress portion of the exam. 3 . Normal left ventricle size. 4 . Left Ventricular Ejection Fraction is 64 % TID: 0.68. 5 . Normal myocardial perfusion imaging with no evidence of ischemia or scar. Amado Rolle MD [id number],C,s tarted on CPAP, notices improvement in his fatigue levels Amado Rolle MD [id number],S,improved on C PAP Amado Rolle MD [id number],S, H eart rate in 50s-60s range Amado Rolle MD [id number],C, H as had some offusion in the past, may be attributed to an old event. Blood pressures are okay. Amado Rolle MD [id number],C, A ortic root enlarged at 4.2 on echo. Asked him to get cat scan reviewed by CT surgeon at [facility] who is seeing him for thymoma. Amado Rolle MD [id number],C, P ending home sleep study result. Amado Rolle MD [id number],C, S topped crestor. H is updated medication list for this problem includes: Rosuvastatin 40 Mg Tablet (Rosuvastatin) Amado Rolle MD [id number],C,N uclear stress 04/24/23 CONCLUSIONS: 1 . Sinus bradycardia. Otherwise, this is a normal resting EKG. 2 . Rare PVCs seen during stress portion of the exam. 3 . Normal left ventricle size. 4 . Left Ventricular Ejection Fraction is 64 % TID: 0.68. 5 . Normal myocardial perfusion imaging with no evidence of ischemia or scar. Echo 04/21/23 CONCLUSIONS: 1 . Normal left ventricular systolic function. Normal left ventricular size. Normal left ventricular wall thickness. Normal left v entricular diastolic function. E/E': 11.4 Left ventricular ejection fraction is measured at 63 %. 2 . Normal right ventricular size. Normal right ventricular systolic function. 3 . Normal appearing tricuspid valve leaflets. There is mild tricuspid regurgitation. IVC is normal in size with normal r espiratory response. The RA pressure is estimated at 5.0 mmHg Estimated peak pulmonary artery systolic pressure is 35.0 m mHg. 4 . Pulmonic valve leaflets appear structurally normal. Normal pulmonic valve velocities by Doppler. There is mild pulmonic r egurgitation. Normal aortic root size. Aortic root is dilated at the level of the sinus. Sinus of Valsalva is 4.20 cm. Ascending Aorta is 4.20 cm J addie 2022 I reviewed the echo, the measurements on the aorta appear to be accurately taken. Amado Rolle MD [id number] F atigue bothers me. Concerned whether or not he actually has CAD. Stress test was normal, recommend diagnostic cath. Schedule for Right and Left. The risks and benefits of the procedure, including but not limited the risk of heart attack, , stroke, bleeding, kidney failure, and loss of limb as well as the alternative of continued medical therapy, stress testing or bypass surgery were discussed with the patient and any present family members and the patient wishes to proceed with cardiac cath and stenting. The patient and family had opportunity to discuss this with us. Written material including informed consent was given out. Amado Rolle MD [id number],S,Sees nephrolo gist Amado Rolle MD [id number],S,C ould be related to SHAKIR versus statin myopathy will recommend holding crestor for 1 month and seeign whether or not his symptoms improve additionally chec k home sleep study as prior mild SHAKIR untreated unclear family history for CAD non smoker but has DM HTN CHOL male gender will check nuclar stress test for ischemia Amado Rolle MD [id number],C,Alc is 6.3 Sa marta Rolle MD [id number],C,H old statin may have myopathy H is updated medication list for this problem includes: Rosuvastatin 40 Mg Tablet (Rosuvastatin) Amado Rolle MD [id number],S,U ntreated Shakir check home sleep might need CPAP Amado Rolle MD [id number],S,C ould be related to SHAKIR versus statin myopathy will recommend holding crestor for 1 month and seeign whether or not his symptoms improve additionally chec k home sleep study as prior mild SHAKIR untreated unclear family history for CAD non smoker but has DM HTN CHOL male gender will check nuclar stress test for ischemia Amado Rolle MD [id number],C,B P is controlled H is updated medication list for this problem includes: Losartan 100 Mg Tablet (Losartan) Nifedipine 60 Mg Tablet Extended Release 24hr (Nifedipine) Amiloride 5 Mg Tablet (Amiloride) BP today: 148/62 Amado Rolle MD Cardiology: Giselle malone is planning on having his thymus removed at [facility].Prior hx of aspiration. Will arrange for [facility] to evaluate his aorta; September 19, 2023 A CCEPTABLE CANDDIATE TO PROCEED WITH SURGERY FOR THYMUS Giselle Malone HAD CATH/ [facility]/ STRESS TEST AND HAS REPORTS WITH HIM FOR THE SURGEON Ferdinand Pinon NP Cardiology: i mproved on CPAP Ferdinand Pinon NP Cardiology: H is updated medication list for this problem includes: Jardiance 25 Mg Tablet (Empagliflozin) ..... Take 1 tablet by mouth once daily Losartan 100 Mg Tablet (Losartan) ..... Take 1 tablet by mouth daily Ferdinand Pinon BENJA Cardiology: H is updated medication list for this problem includes: Rosuvastatin 40 Mg Tablet (Rosuvastatin) ..... Take 1 tablet by mouth once a day Ferdinand Pinon BENJA Cardiology: H is updated medication list for this problem includes: Amiloride 5 Mg Tablet (Amiloride) ..... Take 2 tablets by mouth once daily Nifedipine 60 Mg Tablet Extended Release 24hr (Nifedipine) ..... Take 1 tablet every day Losartan 100 Mg Tablet (Losartan) ..... Take 1 tablet by mouth daily BP today: 138/68 P rior BP: 142/80 (08/01/2023) Labs Reviewed: C reat: 1.40 (06/26/2023) C hol: 107 (06/26/2023) HDL: 34 (06/26/2023) LDL: 48 MG/DL (CALC) (06/26/2023) T (06/26/2023) Ferdinand Lawsonbernard YOUSIF Cardiology:July 152022 H faisal is planning on [facility].Prior hx of aspiration. Will arrange for [facility] to evaluate his aorta; [facility] 09/11/2023 IMPRESSION: 1 . Widely patent coronary vasculature. 2 . Overall normal right heart catheterization pressures. 3 . Mildly elevated systolic blood pressure. 4 . Elevated LVEDP. 5 . No left ventriculogram. R ECOMMENDATIONS: At present recommendation for continued medical management in this patient. We will consider getting a transesophageal echo to evaluation the aortic root size. September 19, 2023 C ONCLUSIONS: 1 . Normal left ventricular size and systolic function. Normal left ventricular size. Normal left ventricular systolic function. LV E jection Fraction is 55 % The left ventricular ejection fraction was an estimation. 2 . Normal right ventricular size. Normal right ventricular systolic function. 3 . The left atrium is normal in size. No left atrial thrombus. The left atrial appendage is normal in appearance with no e vidence of thrombus. 4 . Bubble study positive for right to left shunting however no confirmative demonstration of color flow to suggest left to right s lazo. There was a [id number] shunt at rest by contrast study with agitated saline, consistent with patent foramen ovale. 5 . There is aortic root dilation. Sinus of Valsalva: 3.4 cm Sinotubular junction: 3.3 cm Aortic arch 3.8 cm Ascending Aorta 3.3 c m Descending Aorta 2.4 cm. 6 . No significant valvular disease noted. Ferdinand Lawsonbernard YOUSIF Cardiology:July 152022 C ONCLUSIONS: 1 . Sinus bradycardia. Otherwise, this is a normal resting EKG. 2 . Rare PVCs seen during stress portion of the exam. 3 . Normal left ventricle size. 4 . Left Ventricular Ejection Fraction is 64 % TID: 0.68. 5 . Normal myocardial perfusion imaging with no evidence of ischemia or scar. September 19, 2023 E XPERIENCING BRADYCARDIA NOT ON MEDS WHICH AFFECT HEART RATE Tomasjensen Kathrin YOUSIF Cardiology:CURRENTLY USING CPAP AND NOTICES A DIFFERENCE T he patient is using CPAP on a regular basis. The patient has been benefiting from therapy and should continue use. Ferdinand Pinon NP Cardiology:He is promise nning on having his thymus removed at [facility].Prior hx of aspiration. Will arrange for [facility] to evaluate his aorta; Amado Rolle MD Cardiology:He is promise nning on having his thymus removed at [facility].Prior hx of aspiration. Will arrange for [facility] to evaluate his aorta; IMPRESSION: 1 . Widely patent coronary vasculature. 2 . Overall normal right heart catheterization pressures. 3 . Mildly elevated systolic blood pressure. 4 . Elevated LVEDP. 5 . No left ventriculogram. RECOMMENDATIONS: At present recommendation for continued medical management in this patient. We will consider getting a transesophageal echo to evaluation the aortic root size. Amado Rolle MD Cardiology:CONCLUSIO NS: 1 . Normal left ventricular systolic function. Normal left ventricular size. Normal left ventricular wall thickness. Normal left v entricular diastolic function. E/E': 11.4 Left ventricular ejection fraction is measured at 63 %. 2 . Normal right ventricular size. Normal right ventricular systolic function. 3 . Normal appearing tricuspid valve leaflets. There is mild tricuspid regurgitation. IVC is normal in size with normal r espiratory response. The RA pressure is estimated at 5.0 mmHg Estimated peak pulmonary artery systolic pressure is 35.0 m mHg. 4. Pulmonic valve leaflets appear structurally normal. Normal pulmonic valve velocities by Doppler. There is mild pulmonic r egurgitation. 5 . Normal aortic root size. Aortic root is dilated at the level of the sinus. Sinus of Valsalva is 4.20 cm Ascending Aorta is 4.20 c m. Amado Rolle MD Cardiology:CONCLUSIO NS: 1 . Sinus bradycardia. Otherwise, this is a normal resting EKG. 2 . Rare PVCs seen during stress portion of the exam. 3 . Normal left ventricle size. 4 . Left Ventricular Ejection Fraction is 64 % TID: 0.68. 5 . Normal myocardial perfusion imaging with no evidence of ischemia or scar. Amado Rolle MD Cardiology:started o n CPAP, notices improvement in his fatigue levels Amado Rolle MD Cardiology:improved on CPAP Jacquelyn Rolle MD Cardiology: H eart rate in 50s-60s range Amado Rolle MD Cardiology: H as had some offusion in the past, may be attributed to an old event. Blood pressures are okay. Amado Rolle MD Cardiology: A ortic root enlarged at 4.2 on echo. Asked him to get cat scan reviewed by CT surgeon at [facility] who is seeing him for thymoma. Amado Rolle MD Cardiology: P ending home sleep study result. Amado Rolle MD Cardiology: S topped crestor. H is updated medication list for this problem includes: Rosuvastatin 40 Mg Tablet (Rosuvastatin) Amado Rolle MD Cardiology:Nuclear s tress 04/24/23 CONCLUSIONS: 1 . Sinus bradycardia. Otherwise, this is a normal resting EKG. 2 . Rare PVCs seen during stress portion of the exam. 3 . Normal left ventricle size. 4 . Left Ventricular Ejection Fraction is 64 % TID: 0.68. 5 . Normal myocardial perfusion imaging with no evidence of ischemia or scar. Echo 04/21/23 CONCLUSIONS: 1 . Normal left ventricular systolic function. Normal left ventricular size. Normal left ventricular wall thickness. Normal left v entricular diastolic function. E/E': 11.4 Left ventricular ejection fraction is measured at 63 %. 2 . Normal right ventricular size. Normal right ventricular systolic function. 3 . Normal appearing tricuspid valve leaflets. There is mild tricuspid regurgitation. IVC is normal in size with normal r espiratory response. The RA pressure is estimated at 5.0 mmHg Estimated peak pulmonary artery systolic pressure is 35.0 m mHg. 4 . Pulmonic valve leaflets appear structurally normal. Normal pulmonic valve velocities by Doppler. There is mild pulmonic r egurgitation. Normal aortic root size. Aortic root is dilated at the level of the sinus. Sinus of Valsalva is 4.20 cm. Ascending Aorta is 4.20 cm J addie 2022 I reviewed the echo, the measurements on the aorta appear to be accurately taken. Amado Rolle MD Cardiology: Caitlin feliciano bothers me. Concerned whether or not he actually has CAD. Stress test was normal, recommend diagnostic cath. Schedule for Right and Left. The risks and benefits of the procedure, including but not limited the risk of heart attack, , stroke, bleeding, kidney failure, and loss of limb as well as the alternative of continued medical therapy, stress testing or bypass surgery were discussed with the patient and any present family members and the patient wishes to proceed with cardiac cath and stenting. The patient and family had opportunity to discuss this with us. Written material including informed consent was given out. 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 Partha Rolle MD Cardiology:Could be related to SHAKIR versus statin myopathy will recommend holding crestor for 1 month and seeign whether or not his symptoms improve additionally che k home sleep study as prior mild SHAKIR untreated unclear family history for CAD non smoker but has DM HTN CHOL male gender will check nuclar stress test for ischemia Amado Rolle MD Cardiology:Alc is 6.3 Amado Rolle MD Cardiology:Hold stat in may have myopathy H is updated medication list for this problem includes: Rosuvastatin 40 Mg Tablet (Rosuvastatin) Amado Rolle MD Cardiology:Untreated Shakir check home sleep might need CPAP Amado Rolle MD Cardiology:Could be related to SHAKIR versus statin myopathy will recommend holding crestor for 1 month and seeign whether or not his symptoms improve additionally chec k home sleep study as prior mild SHAKIR untreated unclear family history for CAD non smoker but has DM HTN CHOL male gender will check nuclar stress test for ischemia Amado Rolle MD Cardiology:BP is con trolled H is updated medication list for this problem includes: Losartan 100 Mg Tablet (Losartan) Nifedipine 60 Mg Tablet Extended Release 24hr (Nifedipine) Amiloride 5 Mg Tablet (Amiloride) BP today: 148/62 Amado Rolle MD Date Name [facility] - [facility] EKG [facility] - [facility] PROTHROMBIN TIME WIT H INR LIPID PANEL CBC (INCLUDES DIFF/P LT) BASIC METABOLIC PANE L W/EGFR Sleep Study Titratio n PROTHROMBIN TIME WIT H INR LIPID PANEL CBC (INCLUDES DIFF/P LT) BASIC METABOLIC PANE L W/EGFR Sleep Study Home Complete Echo Stress Exercise Card iolite HISTORY OF PROCEDURES Procedure Date Procedure Name Provider Procedure Notes S tatus EKG Amado Rolle MD compl eted EKG Amado Rolle MD compl eted EKG Amado Rolle MD compl eted
--- OUTSIDE RECORDS SUMMARY | 2025-02-10 12:37 | XMS_ITS | Clinical Summary ---
Author Organization [facility] Facility Address [address] [place] [address] Care Team Providers Care Refrigerated Cargo Clerk Name Role Phone Nik Hodgson MD Primary Care Provider [phone] Medications rosuvastatin (CRESTOR) 10 MG tablet TAKE [...] Comments Blood Pressure 118/62 11/01/2022 9:33 AM SENSOR SPECIALIST Pulse 56 11/01/2022 9:33 AM SENSOR SPECIALIST Temperature 36.1 C (97 F) 11/01/2022 9:33 AM SENSOR SPECIALIST Respiratory Rate 18 11/01/2022 9:33 AM SENSOR SPECIALIST Oxygen Saturation 97% 11/01/2022 9:33 AM SENSOR SPECIALIST Inhaled Oxygen Concentration - - Weight 90.4 kg (199 lb 3.2 oz) 11/01/2022 9:33 A M SENSOR SPECIALIST Height 165.1 cm (5' 5 ) 11/01/2022 9:33 AM SENSOR SPECIALIST Body Mass Index 33.15 11/01/2022 9:33 AM SENSOR SPECIALIST Plan of Treatment Health Maintenance Due Date Last Done Comments Hepatitis B Vaccine (1 of 3 - 19+ 3-dose series) 05/13 Pneumococcal Vaccine: 50+ Years (1 of 2 - PCV) 988 Colorectal Cancer Screening: Annual FOBT 2018 Colorectal Cancer Screening: Colonoscopy 2018 Colorectal Cancer Screening: Sigmoidoscopy 2018 Influenza Vaccine (Season Ended) 2025 Insurance [facility] Care Teams Refrigerated Cargo Clerk Relationship Specialty Start Date End Date Nik Hodgson MD [address] [place] [address], [address] [place] [address] PCP - General Internal Medicine 07/07/21
--- OUTSIDE RECORDS SUMMARY | 2025-02-10 12:37 | XMS_ITS | Encounter Summary ---
Author Organization [facility] Address [address] [place] [address] Phone Care Team Providers Care Commercial Banker Name Role Phone Clayton Morrison DO Primary Care Provider [phone] Encounter Details Date Type Department Care Team (Latest Contact Info) Description 04/01/2017 Orders Only [facility] CONVERSION Scanning, Provider Social History Tobacco Use Types Packs/Day Years Used Date Smoking Tobacco: Never Assessed Sex and Gender Information Value Date Recorded Sex Assigned at Not on file Legal Sex Male 2:13 AM DEPUTY JUVENILE OFFICER Gender Identity Not on file Sexual Orientation Not on file documented as of this encounter Plan of Treatment Not on file documented as of this encounter Procedures Procedure Name Priority Date/Time Associated Diagnosis Comments STRESS TEST ONLY, EXERCISE 04/01/2017 2:27 PM CDT documented in this encounter Results * STRESS TEST ONLY, EXERCISE (04/01/2017 2:27 PM CDT) Anatomical Region Laterality Modality Other us Provider Scanning CV STRESS PROCEDURES Final Res ult documented in this encounter Visit Diagnoses Not on filedocumented in this encounter Additional Health Concerns Infection Onset Date Last Indicated Resolved Time COVID: Suspected 12/19/2024 12/19/2024 12/19/2024 6:34 PM DEPUTY JUVENILE OFFICER documented as of this encounter Care Teams Commercial Banker Relationship Specialty Start Date End Date Clayton Morrison DO PCP - General 02/12/17 documented as of this encounter
--- OUTSIDE RECORDS SUMMARY | 2025-02-10 12:37 | XMS_ITS | Encounter Summary ---
Author Organization [facility] Health Address [address] [facility] [place] [place] [address] Care Team Providers Care Kid Club Attendant Name Role Phone Pcp, Unknown Primary Care Provider Nik Álvarez MD Primary Care Provider Encounter Details Date Type Department Care Team (Late Contact Info) Description 04/02/2013 [facility] Outpatient Visit [facility] [address] [place] [address] Unknown, Provider Social History Tobacco Use Types Packs/Day Years Used Date Smoking Tobacco: Never Assessed Sex and Gender Information Value Date Recorded Sex Assigned at Not on file Legal Sex Male 6:26 AM APPLICATIONS DEVELOPMENT CONSULTANT Gender Identity Not on file Sexual Orientation Not on file documented as of this encounter Plan of Treatment Upcoming Encounters Date Type Department Care Team (Late Contact Info) Description 06/03/2025 10:00 AM CDT Appointment [facility] CAT SCAN [address] [place] [phone] French Bolaños MD [address] [place] [phone] 06/05/2025 8:30 AM CDT Office Visit [facility] [address] [place] [address] French Bolaños MD [address] [place] [phone] documented as of this encounter Visit Diagnoses Not on filedocumented in this encounter Care Teams Kid Club Attendant Relationship Specialty Start Date End Date Pcp, Unknown [place] [address] PCP - General 02/25/13 Nik Hodgson MD [address] [address] PCP - General Internal Medicine 12/19/22 documented as of this encounter
--- OUTSIDE RECORDS SUMMARY | 2025-02-10 12:37 | XMS_ITS | Encounter Summary ---
Author Organization [facility] Health Address [address] [place] [address] Care Team Providers Care Instructional Support Specialist Name Role Phone Pcp, Unknown Primary Care Provider Nik Álvarez MD Primary Care Provider Encounter Details Date Type Department Care Team (Late Contact Info) Description 03/05/2013 [facility] Outpatient Visit [facility] [address] [place] [address] Unknown, Provider Social History Tobacco Use Types Packs/Day Years Used Date Smoking Tobacco: Never Assessed Sex and Gender Information Value Date Recorded Sex Assigned at Not on file Legal Sex Male 6:26 AM PLANT CYTOLOGIST Gender Identity Not on file Sexual Orientation Not on file documented as of this encounter Plan of Treatment Upcoming Encounters Date Type Department Care Team (Late Contact Info) Description 06/03/2025 10:00 AM CDT Appointment [facility] CAT SCAN [address] [place] [phone] French Bolaños MD [address] [place] [phone] 06/05/2025 8:30 AM CDT Office Visit [facility] Health Heart & Vascular Care [address] [place] [address] French Bolaños MD [address] [place] [phone] documented as of this encounter Visit Diagnoses Not on filedocumented in this encounter Care Teams Instructional Support Specialist Relationship Specialty Start Date End Date Pcp, Unknown [place] [address] PCP - General 02/25/13 Nik Hodgson MD [address] [address] PCP - General Internal Medicine 12/19/22 documented as of this encounter
--- OUTSIDE RECORDS SUMMARY | 2025-02-10 12:37 | XMS_ITS | Clinical Summary ---
Author Organization [facility] Belinda Livingston Address [address] [place] [address] Care Team Providers Care Public Utilities Sales Representative Name Role Phone Unavailable Primary Care Provider Unavailabl e Allergies No known active allergies Medications aMILoride (MIDAMOR) 5 mg tablet Take 10 mg by mouth daily. Active losartan (COZAAR) 100 mg tablet Take 100 mg by mouth daily. 2 Active Jardiance 25 mg tablet Take 25 mg by mouth daily in the morning. Active rosuvastatin (CRESTOR) 40 mg tablet Take 40 mg by mouth daily. 2 Active testosterone cypionate (DEPO-TESTOSTE SOFIYA) 200 mg/mL Oil Inject 200 mg by intramuscular injection every 7 days. Active DOCOSAHEXAENOI C ACID ORAL Fish Oil unspecified unspecified Active tadalafil (CIALIS) 5 mg tablet Take 5 mg by mouth daily. Active Voquezna 20 mg Tablet Take 20 mg by mouth daily. 4 Active NIFEdipine (PROCARDIA XL) 30 mg Extended Release 24 hour tablet Take 30 mg by mouth daily at bedtime. 2 Active vitamin E, dl,tocopheryl acet, (vitamin E, DL,acetate,) 180 mg (400 unit) Capsule Take 400 Units by mouth daily. Active multivitamin (MULTIPLE VITAMIN ORAL) Take 1 Tablet by mouth daily. Active potassium CHLORIDE (K-DUR,KLOR-CO N M20) 20 mEq Extended Release tablet Take 20 mEq by mouth daily. Active cetirizine (ZyrTEC) 10 mg tablet Take 10 mg by mouth daily. Active Active Problems Problem Noted Date Diagnosed Date Polycythemia, secondary 02/10/2025 Iron deficiency anemia 02/10/2025 Encounters Date Type Department Care Team Description 02/10/2025 10:30 AM CDT Office Visit [facility] - [place] [address] [place] [address] Roberta Gillis MD Polycythemia, secondary (Primary Dx); Iron deficiency anemia, unspecified iron deficiency anemia type from Last 3 Months Family History Medical History Relation Name Comments No Known Problems Child 1 No Known Problems Child 2 No Known Problems Child 3 No Known Problems Child 4 Diabetes Father Heart Disease Father Skin Cancer Father Heart Disease Mother Relation Name Status Comments Child 1 Alive Child 2 Alive Child 3 Alive Child 4 Alive Father Alive Mother Alive Social History Tobacco Use Types Packs/Day Years Used Date Smoking Tobacco: Never Smokeless Tobacco: Never Tobacco Cessation:Counseling Given: Not Answered Alcohol Use Standard Drinks/Week Comments Yes 0 (1 standard drink = 0.6 oz pur e alcohol) occasional Sex and Gender Information Value Date Recorded Sex Assigned at Not on file Legal Sex Male 1:02 PM CAR BLOCKER Gender Identity Not on file Sexual Orientation [...] Mass Index 31.78 02/10/2025 10:33 AM CDT Plan of Treatment Upcoming Encounters Date Type Department Care Team (Late st Contact Info) Description 03/24/2025 2:30 PM CDT Office Visit [facility]ology - [place] [address] [place] [address] Amandeep Abdi MD [address] [place] [address] Health Maintenance Due Date Last Done Comments DIABETES ANNUAL FOOT EXAM 1987 DIABETES ANNUAL RETINAL EXAM 1987 DIABETES MICROALBUMIN ANNUAL SCREEN 1987 LDL CHOLESTEROL ANNUAL 1987 HEPATITIS B VACCINES (1 of 3 - 19+ 3-dose series) 1988 COLORECTAL SCREENING 2014 Colorectal Cancer Screening 2014 FIT-DNA Q 3 years 2014 FIT/FOBT Q 1 year 2014 Flex Sig/CT Colonography Q 5 years 2014 ZOSTER VACCINE (1 of 2) 2019 DIABETES HBA1C Q 6 MONTHS 12/31/2022 07/03/2022 INFLUENZA VACCINE (#1) 2024 12/02/2017, 2017 COVID-19 Vaccine ( season) 2024 11/25/2021, 05/11/2021, 04/20/2021 Preventative Visit- Commercial 10/15/2024 DTAP/TDAP/TD VACCINES (2 - T d or Tdap) 10/22/2027 10/22/2017 Insurance [facility] PREFERRED
--- OUTSIDE RECORDS SUMMARY | 2025-02-10 12:37 | XMS_ITS | Clinical Summary ---
Author Organization [facility] Address [address] [place] [address] Care Team Providers Care Phys Ther Name Role Phone Nik Hodgson MD Primary Care Provider Source Comments [facility],non-owned Affiliates and Associated Physician Practices is amultiple site organization consisting of ambulatory clinics and hospital sitesin [place], [place], [place] and [place]. This disclosure is being madepursuant to the Care Everywhere program and may not contain all information available regarding this patient. Last updated 18.[facility] Allergies No known active allergies Medications * Be aware that medications may not be up to date on this document. Alwaysverify current medications with the patient. losartan (Cozaar) 100 MG tablet Take 1 (one) tablet by mouth once daily 2 Active meloxicam (Mobic) 7.5 MG tablet Take 1 (one) tablet by mouth 2 times daily as needed 2 Active omeprazole (PriLOSEC) 20 MG capsule Take 1 (one) capsule by mouth daily before breakfast 2 Active rosuvastatin (Crestor) 40 MG tablet Take 1 (one) tablet by mouth once daily 2 Active Vitamin E 180 MG (400 UNIT) [...] 2 (two) tablets by mouth every morning 2 Active NIFEdipine CR osmotic 24hr (Procardia-XL) 30 MG tablet Take 1 (one) tablet by mouth at bedtime 2 Active empagliflozin (Jardiance) 25 MG tablet Take 1 (one) tablet by mouth once daily Active spironolactone (Aldactone) 25 MG tablet Take 1 (one) tablet by mouth every morning 2 Active methylPREDNISol one (Medrol Dosepak) 4 MG tablet Take by mouth as directed Take as directed by mouth per package instructions. 21 tablet 3 Active Additional Information Patient not taking.Reported on 05/21/2024 cyclobenzaprine (Flexeril) 10 MG tablet Take 1 (one) tablet by mouth 3 times daily 90 tablet 5 Active 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 Hypertriglyceridemia 12/26/2022 02/23/2023 Essential hypertension 07/23/2020 3 Encounters Date Type Department Care Team Description 02/05/[address] [place] [address] John Grayson MD Record Request 01/29/[address] [place] [address] John Grayson MD Update 01/15/2025 2:15 PM CDT Office Visit [address] [place] [address] John Grayson MD Cervical spondylosis (Primary Dx) 12/12/2024 9:00 AM TEAM LEADER Office Visit [facility] [address] [place] [address] rFench Bolaños MD Mediastinal mass (Primary Dx) 12/12/2024 Telephone [facility] [address] [place] [address] French Bolaños MD Appointment (Ct scan ) 12/09/2024 8:30 AM TEAM LEADER - 12/09/2024 11:59 PM TEAM LEADER Hospital Encounter [facility] CAT SCAN [address] [place] [address] French Bolaños MD Discharge Disposition: Home or Self Care 12/09/2024 Travel from Last 3 Months Family History Medical [...] on file Legal Sex Male 6:26 AM TEAM LEADER Gender Identity Not on file Sexual Orientation Not on file 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, 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 Not on file Not on file Not on file Last Filed Vital Signs Vital Sign Reading Time Taken Comments Blood Pressure 150/90 01/15/2025 3:07 PM CDT Pulse 69 01/15/2025 3:07 PM CDT Temperature 36.8 C (98.2 F) 02/23/2023 9:21 AM CDT Respiratory Rate 14 09/21/2023 9:52 AM TEAM LEADER Oxygen Saturation 97% 12/12/2024 9:01 AM TEAM LEADER Inhaled Oxygen Concentration - - Weight 86.2 kg (190 lb) 01/15/2025 3:07 PM CDT Height 167.6 cm (5' 6 ) 05/21/2024 1:16 PM CDT Body Mass Index 30.67 05/21/2024 1:16 PM CDT Plan of Treatment Upcoming Encounters Date Type Department Care Team (Late st Contact Info) Description 06/03/2025 10:00 AM CDT Appointment [facility] CAT SCAN [address] [place] [address] French Bolaños MD [address] [place] [phone] 06/05/2025 8:30 AM CDT Office Visit [facility] [address] [facility] [address] [place] [address] French Bolaños MD [address] [phone] Health Maintenance Due Date Last Done [...] VACCINE (1 of 2) 2019 COVID-19 VACCINE ( - 2023-2 5 season) 2024 11/25/2021, 05/11/2021, 04/20/2021 DEPRESSION SCREENING 10/15/2024 06/14/2022 INFLUENZA VACCINE (Season Ended) 2025 12/02/2017, 10/22/2017 SCREENING FOR DIABETES 07/03/2025 2, 07/03/2022 HIB VACCINE Aged Out No longer eligi ble based on patient's age to complete this topic HPV VACCINE Aged Out No longer eligi ble based on patient's age to complete this topic MENINGOCOCCAL (Group B) VACCINE SHARED DECISION-MAKING Aged Out No longer eligible based on patient's age to complete this topic MENINGOCOCCAL GROUPS A/C/Y/W VACCINE Aged Out No longer eligible b ased on patient's age to complete this topic Procedures Procedure Name Priority Date/Time Associated Diagnosis Comments CT CHEST W CONTRAST Routine 12/09/2024 8 :57 AM TEAM LEADER Mediastinal mass CREATININE - POCT INTERFACED Routine 12/09/2024 8:46 AM TEAM LEADER COMPREHENSIVE METABOLIC PANEL 07/03/2022 8:52 AM CDT from Last 3 Months or Most Recently Relevant to Health Maintenance Results * CT CHEST W CONTRAST (12/09/2024 8:57 AM TEAM LEADER) Anatomical Region Laterality Modality Chest Computed Tomogra phy 12/09/2024 9:40 AM TEAM LEADER Impressions 12/09/2024 10:30 AM TEAM LEADER Impression: 1.Grossly unchanged anterior mediastinal lesion favoring rebound thymic hyperplasia or residual thymic tissue. 2.No acute process in the chest or upper abdomen. Report was dictated by Tutu Lopez MD, (Integrated [facility] resident). I, Erin Brown MD have personally reviewed and interpreted this examination/study. > Interpreting Provider: Erin Brown MD on 12/09/2024 10:30 AM Narrative 12/09/2024 10:30 AM TEAM LEADER PROCEDURE: CT CHEST W CONTRAST, DATE/TIME OF EXAM: 12/09/2024 8:59 AM, LOCATION [facility] INDICATION: J98.59: Mediastinal mass ADDITIONAL CLINICAL INFORMATION: Ordering Provider Reason For Exam: Technologist Note: Additional: COMPARISON: CT chest with contrast from 03/21/2024 and multiple priors. TECHNIQUE: CT of the chest was performed following the uneventful administration of 100 mL of Isovue 370 intravenous contrast according to standard protocol. Findings: Lower Neck and Axillae: There is a 0.8 cm hypodense right thyroid nodule. There are multiple subcentimeter axillary lymph nodes. Lungs: No pulmonary parenchymal or airway process is present. No suspicious pulmonary nodules are identified. No pleural fluid or pneumothorax is present. Heart and Pericardium: The cardiac chambers are normal in size. No pericardial fluid or thickening is present. Mediastinum and Margi: Ill-defined soft tissue attenuating lesion is again noted in the anterior mediastinum measuring 0.9 cm x 3 cm and is bordered along the posterior margin of the manubrium and anterior to the left brachiocephalic vein. In comparison to prior scan, the appearance and contours are grossly unchanged. The mediastinal lymph nodes are not enlarged. Thoracic Vasculature: The aorta and its branch vessels are atherosclerotic. Punctate foci of air within the right atrium and in the main pulmonary artery. Bones and Chest Wall: Bone windows demonstrate no suspicious lytic or blastic lesions. The visible osseous structures are intact. Mild degenerative changes are seen in the spine. Partially visualized ACDF hardware of the lower cervical spine. Upper Abdomen: Surgically absent gallbladder with cholecystectomy clips. Procedure Note Erin Brown MD - 12/09/2024 PROCEDURE: CT CHEST W CONTRAST, DATE/TIME OF EXAM: 12/09/2024 8:59 AM, LOCATION [facility] INDICATION: J98.59: Mediastinal mass ADDITIONAL CLINICAL INFORMATION: Ordering Provider Reason For Exam: Technologist Note: Additional: COMPARISON: CT chest with contrast from 03/21/2024 and multiple priors. TECHNIQUE: CT of the chest was performed following the uneventful administration of 100 mL of Isovue 370 intravenous contrast according to standard protocol. Findings: Lower Neck and Axillae: There is a 0.8 cm hypodense right thyroid nodule. There are multiple subcentimeter axillary lymph nodes. Lungs: No pulmonary parenchymal or airway process is present. No suspicious pulmonary nodules are identified. No pleural fluid or pneumothorax is present. Heart and Pericardium: The cardiac chambers are normal in size. No pericardial fluid orthickening is present. Mediastinum and Margi: Ill-defined soft tissue attenuating lesion is again noted in theanterior mediastinum measuring 0.9 cm x 3 cm and is bordered along the posterior margin of the manubrium and anterior to the left brachiocephalic vein.In comparison to prior scan, the appearance and contours are grossly unchanged. The mediastinal lymph nodes are not enlarged. Thoracic Vasculature: The aorta and its branch vessels are atherosclerotic. Punctate foci ofair within the right atrium and in the main pulmonary artery. Bones and Chest Wall: Bone windows demonstrate no suspicious lytic or blastic lesions. The visible osseous structures are intact. Mild degenerative changes areseen in the spine. Partially visualized ACDF hardware of the lower cervical spine. Upper Abdomen: Surgically absent gallbladder with cholecystectomy clips. Impression: 1.Grossly unchanged anterior mediastinal lesion favoring rebound thymic hyperplasia or residual thymic tissue. 2.No acute process in the chest or upper abdomen. Report was dictated by Tutu Lopez MD, (Integrated [facility] resident). I, Erin Brown MD have personally reviewed and interpreted this examination/study. > Interpreting Provider: Erin Brown MD on 12/09/2024 10:30 AM us French Bolaños MD CT ORDERABLES Final Result * (ABNORMAL) CREATININE - POCT INTERFACED (12/09/2024 8:46 AM TEAM LEADER) Creatinine POCT 1.34(H) 0.30 - 1.30 mg/dL 12/09/2024 8:50 AM TEAM LEADER [facility] eGFR 63(L) >=90 mL/min/1.7 3 m2 12/09/2024 8:50 AM TEAM LEADER [facility] Blood BLOOD SPECIMEN / Unknown 12/09/2024 8:46 AM TEAM LEADER 12/09/2024 8:49 AM TEAM LEADER French Bolaños MD LAB - POINT OF CARE ORDERABLES Final Result [facility] [address] [address], [facility] [phone] * (ABNORMAL) COMPREHENSIVE METABOLIC PANEL (07/03/2022 8:52 AM CDT) Pathologist [facility] Glucose 131(H) 65 - 99 mg/dL [facility] [...] 46 U/L [facility] Comment: Test Performed at: [facility] [address] [place] [address] GWEN PARK DO,MPH 07/03/2022 8:52 AM CDT 07/03/2022 8:53 AM CDT Eduard Boggs MD LAB - CHEMISTRY ORDERABLES Final Result Performing Organization Address City/State/[place] Phone Number [facility] [address] [place] [address] from Last 3 Months or Most Recently Relevant to Health Maintenance Insurance [facility] [employer] Advance Directives * FULL RESUSCITATION (Latest Code Status on File) Date Activated Date Inactivated Comments 06/09/2013 7:10 PM 06/10/2013 11:40 AM Care Teams Phys Ther Relationship Specialty Start Date End Date Nik Hodgson MD [address] [address] PCP - General Internal Medicine 12/19/22
--- OUTSIDE RECORDS SUMMARY | 2025-02-10 12:37 | XMS_ITS | Data Portability ---
Author Organization [place] [employer], Main Office Address [address] [place] [address] Care Team Providers Care Manager Respiratory Name Role Phone CRISTINA HODGSON Primary Care Provider [phone] CRISTINA HODGSON Referring Provider [facility] NEUROSCIENCES Neurosurgeon [facility] Pain Management FRENCH BOLAÑOS Clerk Telegraph Service ANNE-MARIE SULLIVAN Urologist ARELIS WINKLER Parts Order And Stock Clerk LIBBY CRUZ Program Clinician Unavailable Assessment Encounter Date Assessment Date Assessment LastModified by Organization Details LastModified Time 07/30/2024 07/30/2024 12/18/2022: A1C 6.3 TG 214 TSH/FT4/VIT D/Urine micro alb: WNL CMP: BUN 28, gluc 135, GFR 50 CBC: WNL 04/02/2023: PSA 0.54 A1CC 7.4 TG 175 [...] had a 8 minute TeleMedicine consultation via [email or web address] to discuss the following: [email or web address] Not available 08/18/2024 09:16:36 09/22/2024 09/22/2024 12/18/2022: A1C 6.3 TG 214 TSH/FT4/VIT D/Urine micro alb: WNL CMP: BUN 28, gluc 135, GFR 50 CBC: [facility] 04/02/2023: PSA 0.54 A1CC 7.4 TG 175 [...] BUN 28, gluc 135, GFR 50 CBC: [facility] 04/02/2023: PSA 0.54 A1CC 7.4 TG 175 [...] the lab from Dr Sullivan, chart updated Not available 09/22/2024 15:51:48 01/05/2025 01/05/2025 12/18/2022: A1C 6.3 TG 214 TSH/FT4/VIT D/Urine micro alb: WNL CMP: BUN 28, gluc 135, GFR 50 CBC: [facility] 04/02/2023: PSA 0.54 A1CC 7.4 TG 175 [...] BUN 28, gluc 135, GFR 50 CBC: WNL 04/02/2023: PSA 0.54 A1CC 7.4 TG 175 Gluc 146, BUN 24, Cr 1.46H, GFR 51 08/02/2023: A1C 6.8 Gluc 147, Cr 1.29, GFR 58 11/16/2023: A1C 6.4 TG 211 Gluc 138, GFR 60 Urine micro alb 26.7 04/30/2024: A1C 6.6 Urine micro alb 22.2 Gluc 124 TG 185 08/15/2024: Dr Sullivan HCT 51.0 Not available 01/05/2025 17:40:49 Plan of Treatment Reminders Order Date Submit Date Provider Last Modified By Organization Details Last Modified Time Details Appointments Follow Up 15 2024 04:15P Abel mccarty MD Not available Not available Not available Lab testoster one, free + total, serum 2024 025 [facility] (Lab), [address] [place], [address], 01/13/2025 20:23:19 microalbu min, urine 2024 025 [email or web address] Not available 01/07/2025 10:46:26 HbA1c (hemoglob in A1c), blood 2024 025 ABELARDO Not available 01/13/2025 20:23:18 CMP, serum or plasma 2024 025 ABELARDO Not available 01/13/2025 20:23:14 CBC w/ auto diff 2024 025 ABELARDO Not available 01/13/2025 20:23:15 lipid panel, serum 2024 025 ABELARDO Not available 01/13/2025 20:23:12 TSH, serum or plasma 2024 025 ABELARDO Not available 01/13/2025 20:23:17 T4, free, serum 2024 025 ABELARDO Not available 01/13/2025 20:23:16 microalbu min, urine 2023 024 [email or web address] Not available 09/22/2024 17:14:00 HbA1c (hemoglob in [...] 2023 024 ABELARDO Not available 09/27/2024 05:51:59 testoster one, free + total, serum 2023 024 Not available 08/04/2024 09:10:43 estradiol , serum 2023 024 Not available 08/04/2024 09:10:43 PSA, serum or plasma 2023 024 [email or web address] Not available 08/04/2024 09:10:43 CBC 2023 024 [email or web address] Not available 08/04/2024 09:10:43 Referral pulmonolo gist referral - Please call patient to schedule an appointme nt. Thank you. 2024 025 ISIDORO Mackey CURRICULUM DIRECTOR-C, [address], [address], [place], [address], 01/07/2025 10:50:39 hematolog ist referral - Please call patient to schedule an appointme nt. Thank you. 2024 025 ISIDORO Abdi MD, [address], [place], [address], 01/07/2025 11:30:41 podiatris t referral - Please call patient to schedule an appointme nt. Thank you. 2024 025 ABELARDO Salvador DPM, [address], [address], [place], [address], 01/07/2025 11:32:52 nephrolog ist referral - Please call patient to schedule. 2023 024 kelly Wang MD, [address], [address], [place], [address], 12/24/2024 10:51:07 neurologi jesus surgeon referral 2023 024 [email or web address] John Grayson MD, [address], [place], [address], 09/23/2024 08:33:50 hematolog ist referral - Please call patient to schedule. 2023 024 kelly Abdi MD, [address], [place], [address], 12/24/2024 10:49:42 podiatris t referral - Please call patient to schedule. 2023 024 kelly Salvador DPM, [address], [address], [place], [address], 12/24/2024 10:50:15 cardiolog ist referral 2023 024 [email or web address] Amado Rolle MD, [address], [address], [place], [address], 09/23/2024 08:33:49 Procedures upper endoscopy procedure (EGD) (PROC) - Please call patient to schedule. 2023 024 [email or web address] Jean Green MD, [address], [address], [place], [address], 12/24/2024 08:56:45 Surgeries None recorded. Imaging None recorded. Medication Orders Voquezna 20 mg tablet 2023 024 [email or web address] [employer] [facility] [address], [place], [address], 09/24/2024 14:06:35 amoxicill in 875 mg-potass ium clavulana te 125 mg tablet 2023 024 [facility], [address], [place], [id number], 09/22/2024 16:22:53 alfuzosin ER 10 mg tablet,ex tended release 24 hr 2023 024 [facility] #82934, [address], [place], [id number], 05/23/2024 19:51:55 testoster one cypionate 200 mg/mL intramusc ular oil 2023 024 [facility], [address], [place], [id number], 05/23/2024 19:51:57 Patient TargetsNo targets recorded. Patient Instructions Encounter Date Encounter Id Patient Instructions Last Modified By Organization Details Last Modified Time 05/23/2024 [id number] 1. I will start him on testosterone cypionate 0.75 mL once a week 2. He needs labs in 3 months CBC, total testosterone, estradiol and PSA 3. I am going to start him on alfuzosin for his BPH symptoms 4. We talked about testosterone pellets [email or web address] Not available 05/23/2024 19:50:59 08/15/2024 [id number] 1. This was just a telephone visit [...] for this patient encounter rather than a bhwl-or-dudc visit. This patient encounter is appropriate at [...] if listed, were provided by the patient. [email or web address] Not available 08/15/2024 15:15:10 09/22/2024 [id number] diabetic eye exam* [email or web address] Not available 09/22/2024 17:14:01 01/05/2025 [id number] diabetic eye exam* [email or web address] Not available 01/07/2025 10:55:25 Reason for Referral Tests Superintendent Referral for Type 2 diabetes mellitus without complication Please call patient to schedule. Referring Physician: Cristina Hodgson, Internal Medicine, Encounter Date: 09/22/2024 Clerk Telegraph Service Referral for Es sential hypertension Referring Physician: Cristina Hodgson Internal Medicine, Encounter Date: 09/22/2024 Cone Worker Referral for Pr oteinuria Please call patient to schedule. Referring Physician: Cristina Hodgson Internal Medicine, Encounter Date: 09/22/2024 Neurological Surgeon Referra campo for Low back pain Referring Physician: Cristina Hodgson Internal Medicine, Encounter Date: 09/22/2024 Please call patient to sched ule. Referring Physician: Cristina Hodgson Internal Medicine, Encounter Date: 09/22/2024 Tests Superintendent Referral for Type 2 diabetes mellitus without complication Please call patient to schedule an appointment. Thank you. Referring Physician: Cristina Hodgson Internal Medicine, Encounter Date: 01/05/2025 Please call patient to sched ule an appointment. Thank you. Referring Physician: Cristina Hodgson Internal Medicine, Encounter Date: 01/05/2025 Parts Order And Stock Clerk Referral for O bstructive sleep apnea syndrome Please call patient to schedule an appointment. Thank you. Referring Physician: Cristina Hodgson Internal Medicine, Encounter Date: 01/05/2025 Results Created Date Observation Date Name Description Value Unit Range Abnormal Flag Note LastModifiedBy Organization Detail LastModifiedTime 04/30/20 24 04/30/2024 CBC/C OMPLE TE BLD COUNT W/DIF F white blood cells 5.8 x10'3 /uL 4.2-10 .8 Not Available [facility] (Lab) [address] [place], [address], 04/30/2024 13:12:35 04/30/20 24 04/30/2024 CBC/C OMPLE TE BLD COUNT W/DIF F red blood cells 4.86 x10'6 /uL 4.10-5 .80 Not Available [facility] (Lab) [address] [place], [address], 04/30/2024 13:12:35 04/30/20 24 04/30/2024 CBC/C OMPLE TE BLD COUNT W/DIF F hemoglobin 15.2 g/dL 13.2-1 7.0 Not Available [facility] (Lab) [address] [place], [address], 04/30/2024 13:12:35 04/30/20 24 04/30/2024 CBC/C OMPLE TE BLD COUNT W/DIF F hematocrit 45.5 % 39.3-5 0.0 Not Available [facility] (Lab) [address] [place], [address], 04/30/2024 13:12:35 04/30/20 24 04/30/2024 CBC/C OMPLE TE BLD COUNT W/DIF F mean red cell volume 93.6 fL 80.0-9 7.0 Not Available [facility] (Lab) [address] [place], [address], 04/30/2024 13:12:35 04/30/20 24 04/30/2024 CBC/C OMPLE TE BLD COUNT W/DIF F mean red cell hemoglobin 31.3 pg 27.0-3 3.0 Not Available [facility] (Lab) [address] [place], [address], 04/30/2024 13:12:35 04/30/20 24 04/30/2024 CBC/C OMPLE TE BLD COUNT W/DIF F mean RBC HGB concentratio n 33.4 g/dL 31.0-3 6.0 Not Available [facility] (Lab) [address] [place], [address], 04/30/2024 13:12:35 04/30/20 24 04/30/2024 CBC/C OMPLE TE BLD COUNT W/DIF F red cell distribution width 12.6 % 11.8-1 5.5 Not Available [facility] (Lab) [address] [place], [address], 04/30/2024 13:12:35 04/30/20 24 04/30/2024 CBC/C OMPLE TE BLD COUNT W/DIF F platelets 192 x10'3 /uL 150-40 0 Not Available [facility] (Lab) [address] [place], [address], 04/30/2024 13:12:35 04/30/20 24 04/30/2024 CBC/C OMPLE TE BLD COUNT W/DIF F mean platelet volume 10.8 fL 9.0-12 .4 Not Available [facility] (Lab) [address] [place], [address], 04/30/2024 13:12:35 04/30/20 24 04/30/2024 CBC/C OMPLE TE BLD COUNT W/DIF F neutrophils 55.5 % 39.0-7 2.0 Not Available [facility] (Lab) [address] [place], [address], 04/30/2024 13:12:35 04/30/20 24 04/30/2024 CBC/C OMPLE TE BLD COUNT W/DIF F lymphocytes 29.0 % 16.0-4 7.0 Not Available [facility] (Lab) [address] [place], [address], 04/30/2024 13:12:35 04/30/20 24 04/30/2024 CBC/C OMPLE TE BLD COUNT W/DIF F monocytes 10.7 % 5.0-12 .0 Not Available [facility] (Lab) [address] [place], [address], 04/30/2024 13:12:35 04/30/20 24 04/30/2024 CBC/C OMPLE TE BLD COUNT W/DIF F eosinophils 3.4 % 1.0-7. 0 Not Available [facility] (Lab) [address] [place], [address], 04/30/2024 13:12:35 04/30/20 24 04/30/2024 CBC/C OMPLE TE BLD COUNT W/DIF F basophils 0.9 % 0.0-2. 0 Not Available [facility] (Lab) [address] [place], [address], 04/30/2024 13:12:35 04/30/20 24 04/30/2024 CBC/C OMPLE TE BLD COUNT W/DIF F immature granulocytes 0.5 % 0.00-0 .50 Not Available [facility] (Lab) [address] [place], [address], 04/30/2024 13:12:35 04/30/20 24 04/30/2024 CBC/C OMPLE TE BLD COUNT W/DIF F neutrophils, absolute count 3.22 x10'3 /uL 1.5-8. 0 Not Available [facility] (Lab) [address] [place], [address], 04/30/2024 13:12:35 04/30/20 24 04/30/2024 CBC/C OMPLE TE BLD COUNT W/DIF F lymphocytes, absolute count 1.68 x10'3 /uL 1.07-3 .43 Not Available [facility] (Lab) [address] [place], [address], 04/30/2024 13:12:35 04/30/20 24 04/30/2024 CBC/C OMPLE TE BLD COUNT W/DIF F monocytes, absolute count 0.62 x10'3 /uL 0.29-0 .99 Not Available [facility] (Lab) [address] [place], [address], 04/30/2024 13:12:35 04/30/20 24 04/30/2024 CBC/C OMPLE TE BLD COUNT W/DIF F eosinophils, absolute count 0.20 x10'3 /uL 0.02-0 .53 Not Available [facility] (Lab) [address] [place], [address], 04/30/2024 13:12:35 04/30/20 24 04/30/2024 CBC/C OMPLE TE BLD COUNT W/DIF F basophils, absolute count 0.05 x10'3 /uL 0.01-0 .08 Not Available [facility] (Lab) [address] [place], [address], 04/30/2024 13:12:35 04/30/20 24 04/30/2024 CBC/C OMPLE TE BLD COUNT W/DIF F immature granulocytes ,absolute 0.03 x10'3 /uL 0.00-0 .05 Not Available [facility] (Lab) [address] [place], [address], 04/30/2024 13:12:35 04/30/20 24 04/30/2024 CBC/C OMPLE TE BLD COUNT W/DIF F nucleated red blood cells 0.0 % -0 Not Available [facility] (Lab) [address] [place], [address], 04/30/2024 13:12:35 04/30/20 24 04/30/2024 CBC/C OMPLE TE BLD COUNT W/DIF F NRBC# 0.00 x10'3 /uL Not Available [facility] (Lab) [address] [place], [address], 04/30/2024 13:12:35 04/30/20 24 04/30/2024 LIPID PANEL cholesterol 103 mg/dL 140-19 9 low NIH GERMAINE NSUS RECOM MENDA TION FOR NANDA STERO L: ADULT CHILD LOW RISK: <200 <170 BORDE RLINE : <200- 239 ----- HIGH RISK: >240 >200 Not Available [facility] (Lab) [address] [place], [address], 04/30/2024 13:29:35 04/30/20 24 04/30/2024 LIPID PANEL triglyceride s 185 mg/dL 0-150 high NIH GERMAINE NSUS REPOR T RECOM MENDA TION FOR TRIGL YCERI ALEJANDRO: ADULT CHILD LOW RISK: <150 ----- BODER LINE: 150-1 99 ----- HIGH RISK: >200 ----- Not Available [facility] (Lab) [address] [place], [address], 04/30/2024 13:29:35 04/30/20 24 04/30/2024 LIPID PANEL HDL cholesterol 34 mg/dL 40- low Not Available [facility] (Lab) [address] [place], [address], 04/30/2024 13:29:35 04/30/20 24 04/30/2024 LIPID PANEL [...] WILL NOT BE REPOR RENETTA. Not Available [facility] (Lab) [address] [place], [address], 04/30/2024 13:29:35 04/30/20 24 04/30/2024 COMPR EHENS DEXTER METAB OLIC PANEL sodium 140 mmol/ L 137-14 5 Not Available [facility] (Lab) [address] [place], [address], 04/30/2024 13:29:49 04/30/20 24 04/30/2024 COMPR EHENS DEXTER METAB OLIC PANEL potassium 3.8 mmol/ L 3.5-5. 1 Not Available [facility] (Lab) [address] [place], [address], 04/30/2024 13:29:49 04/30/20 24 04/30/2024 COMPR EHENS DEXTER METAB OLIC PANEL chloride 111 mmol/ L 98-107 high Not Available [facility] (Lab) [address] [place], [address], 04/30/2024 13:29:49 04/30/20 24 04/30/2024 COMPR EHENS DEXTER METAB OLIC PANEL carbon dioxide 21 mmol/ L 22-30 low Not Available [facility] (Lab) [address] [place], [address], 04/30/2024 13:29:49 04/30/20 24 04/30/2024 COMPR EHENS DEXTER METAB OLIC PANEL anion gap 11.8 mmol/ L 14-22 low Not Available [facility] (Lab) [address] [place], [address], 04/30/2024 13:29:49 04/30/20 24 04/30/2024 COMPR EHENS DEXTER METAB OLIC PANEL glucose 124 mg/dL 70-99 high Not Available [facility] (Lab) [address] [place], [address], 04/30/2024 13:29:49 04/30/20 24 04/30/2024 COMPR EHENS DEXTER METAB OLIC PANEL BUN 22 mg/dL 8-19 high Not Available [facility] (Lab) [address] [place], [address], 04/30/2024 13:29:49 04/30/20 24 04/30/2024 COMPR EHENS DEXTER METAB OLIC PANEL creatinine 1.12 mg/dL 0.66-1 .25 Not Available [facility] (Lab) [address] [place], [address], 04/30/2024 13:29:49 04/30/20 24 04/30/2024 COMPR EHENS DEXTER METAB OLIC PANEL GFR >60 Refer ence Range : [facility] GFR Healt hy Adult : >60 mL/mi n/1.7 3 m2 Chron ic Kidne y Disea se: 15-60 mL/mi n/1.7 3 m2 Kidne y Failu re: <15/m L/min /1.73 m2 www.n iddk. [facility] [place].g ov The MDRD study equat ion has [...] calcu lator is avail able on the [facility] websi te: https ://geoff najera.earline casillas/silvia faulkneral s/manuelo qi/gf r_cal culat or Not Available [facility] (Lab) [address] [place], [address], 04/30/2024 13:29:49 04/30/20 24 04/30/2024 COMPR EHENS DEXTER METAB OLIC PANEL alkaline phosphatase 56 U/L 38-126 Not Available [facility] (Lab) [address] [place], [address], 04/30/2024 13:29:49 04/30/20 24 04/30/2024 COMPR EHENS DEXTER METAB OLIC PANEL alanine aminotransfe rase 30 U/L 0-50 Not Available [facility] (Lab) [address] [place], [address], 04/30/2024 13:29:49 04/30/20 24 04/30/2024 COMPR EHENS DEXTER METAB OLIC PANEL aspartate aminotransfe rase 33 U/L 15-46 Not Available [facility] (Lab) [address] [place], [address], 04/30/2024 13:29:49 04/30/20 24 04/30/2024 COMPR EHENS DEXTER METAB OLIC PANEL bilirubin, total 0.60 mg/dL 0.20-1 .30 Not Available [facility] (Lab) [address] [place], [address], 04/30/2024 13:29:49 04/30/20 24 04/30/2024 COMPR EHENS DEXTER METAB OLIC PANEL calcium 9.5 mg/dL 8.4-10 .2 Not Available [facility] (Lab) [address] [place], [address], 04/30/2024 13:29:49 04/30/20 24 04/30/2024 COMPR EHENS DEXTER METAB OLIC PANEL total protein 7.5 g/dL 6.3-8. 2 Not Available [facility] (Lab) [address] [place], [address], 04/30/2024 13:29:49 04/30/20 24 04/30/2024 COMPR EHENS DEXTER METAB OLIC PANEL albumin 5.0 g/dL 3.4-5. 0 Not Available [facility] (Lab) [address] [place], [address], 04/30/2024 13:29:49 04/30/20 24 04/30/2024 COMPR EHENS DEXTER METAB OLIC PANEL globulin 2.5 g/dL 2.6-4. 2 low Not Available [facility] (Lab) [address] [place], [address], 04/30/2024 13:29:49 04/30/20 24 04/30/2024 COMPR EHENS DEXTER METAB OLIC PANEL A/G ratio 2.0 ratio 1.0-2. 0 Not Available [facility] (Lab) [address] [place], [address], 04/30/2024 13:29:49 04/30/20 24 04/30/2024 MICRO ALBUM IN RANDO M URINE microalbumin , urine 22.2 mg/L 0.0-16 .6 high Not Available [facility] (Lab) [address] [place], [address], 04/30/2024 13:38:34 04/30/20 24 04/30/2024 T4 FREE free T4 1.11 NG/dL 0.78-2 .19 Not Available [facility] (Lab) [address] [place], [address], 04/30/2024 14:05:45 04/30/20 24 04/30/2024 TSH thyroid-stim ulating hormone 1.430 uIU/m L 0.465- 4.680 Not Available [facility] (Lab) [address] [place], [address], 04/30/2024 14:03:09 04/30/20 24 04/30/2024 HEMOG LOBIN A1C HA1C 6.6 % 4.0-6. 0 high Diabe robb Scree ernesto Crite ludy: <5.7% Consi stent with absen ce of diabe robb 5.7-6 .4% Consi stent with incre ased risk for diabe robb (pred iabet es) >OR=6 .5% Consi stent with diabe robb REFER ENCE: Diabe robb Care 2016, 39(Hernandez ppl.1 ):s13 -s22 Not Available [facility] (Lab) [address] [place], [address], 04/30/2024 16:19:45 01/09/20 25 01/08/2025 MRI, cervi jesus spine , w/o contr ast No observ ation record ed. ABELARDO [facility] [address], [place], [address], 01/08/2025 19:08:51 Result Notes None recorded. Problems Name Problem SNOMED Code Status Onset Date Resolution Date Notes Provider Name and Address Organization Details Recorded Time Essential tremor 919710959 Active 2021 Not Available [facility] 3 06:08:54 Hypertrigl yceridemia 795837121 Active 2022 Veronica man, [facility] [employer] [facility] 3 12:15:15 Accessory thymic tissue 59171290 Active 2022 Veronica man [facility] [employer] [facility] 3 15:13:14 Essential hypertensi on 84330614 Active 2022 Cristina corea MD [address], [address], [place], [address] , [facility] [employer] [facility] 3 09:40:31 Hyperlipid emia 20191374 Active 2022 Cristina corea MD [address], [address], [place], [address] , [facility] [employer] [facility] 3 09:40:34 Type 2 diabetes mellitus without complicati on 483961806 Active 2022 Cristina corea MD [address], [place], [address] , [facility] [employer] [facility] [employer] [facility] 3 09:40:40 Chronic kidney disease 119448494 Active 2022 Cristina corea MD [address], [place], [address] , [facility] [employer] [facility] 3 17:14:37 Obstructiv e sleep apnea syndrome 44296952 Active 2022 Cristina corea MD [address], [place], [address] , [facility] 3 09:50:00 Chronic low back pain 673958454 Active 2022 Samantha Ramsey RMA null, [place] [facility] 3 16:37:50 Male hypogonadi sm 54545093 Active 2022 Samantha Ramsey RMA null, [facility] 3 16:39:47 Acute sinusitis 87380827 Active 2022 Samantha Ramsey RMA null, [place] [facility] 3 17:18:55 Pain of right ankle joint 5658561106605 9106 Active 2023 Cristina corea MD [address], [address], [place], [address] , [facility] 4 17:14:17 Chronic cough 41738970 Active 2023 Cristina corea MD [address], [address], [place], [address] , [facility] 4 17:14:17 Low back pain 493216889 Active 2023 Cristina corea MD [address], [facility] [address], [place], [address] , [facility] 4 17:14:17 Proteinuri a 10090193 Active 2023 Cristina corea MD [address], [address], [place], [address] , [facility] 4 17:14:17 Hypokalemi a 03545372 Active 2023 Cristina corea MD [address], [address], [place], [address] , [facility] 4 17:14:17 Dyspnea 912959645 Active 2023 Cristina corea MD [address], [address], [place], [address] , [facility] 4 17:14:17 Pain of bilateral hands 2812988183529 9109 Active 2023 Cristina corea MD [address], [place], [address] , [facility] 4 17:14:17 Mediastina l mass 20224372 Active 2023 Cristina corea MD [address], [place], [address] , [facility] 4 17:28:10 Upper respirator y infection 01026604 Active 2023 Rissa Davis MA null, [facility] 4 14:46:58 Seasonal allergic rhinitis 408564930 Active 2023 Rissa Davis MA null, [place] [facility] 4 17:17:36 Gastroesop hageal reflux disease without esophagiti s 933546299 Active 2023 Cristina corea MD [address], [facility] [address], [place], [address] , [facility] 4 14:39:09 Benign prostatic hyperplasi a with outflow obstructio n 351866560 Active 2023 Anne-Marie Sullivan MD [address], [facility] [address], [place], [address] , [facility] 4 19:47:34 Fatigue [id number] Active 2023 Liat Del Real CMA null, [facility] 4 09:44:50 Testostero ne level below reference range [id number] Active 2023 Liat Del Real CMA null, [place] [facility] 4 09:46:27 Serum estradiol levels below reference range 374875242 Active 2023 ALMAS Matta, [place] - [facility] 4 09:47:31 Otitis media 56415303 Active 2023 Cristina corea MD [address], [address], [place], [address] , [facility] 4 14:32:30 Erectile dysfunctio n 906570845 Active 2023 Cristina corea MD [address], [address], [place], [address] , [facility] 4 14:35:16 Erythrocyt osis 732660955 Active 2023 Cristina corea MD [address], [address], [place], [address] , [facility] 4 15:51:52 Neck pain 61170246 Active 2024 HERIBERTO Teixeira, [facility] 5 15:36:55 Special male test abnormal 334700394 Active 2024 HERIBERTO Teixeira, [facility] 5 16:47:51 Notes:Medical History: Essen tial tremor Bilateral tinnitus Rhinitis Early REM onset Obesity with very severe OSAHS, AHI = 47, 04/24/23, on autoCPAP c/o Care Medical Supplies Mild TR/VT PASP 35 mmHg Hypertension EF 64% Hyperlipidemia T2DM SUDEEP CKD Lumbar DDD 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 Procedures Surgical History Date Name Laterality Status Provider Name and Address Organization Details Recorded Time 07/03/20 Cardiac Cath completed HERIBERTO Teixeira [place] - [facility] 08/08/2023 17:18:15 Cholecystectomy completed HERIBERTO Teixeira [facility] [employer] [facility] 04/04/2023 17:00:14 Excisions - Specify completed HERIBERTO Teixeira [place] - [facility] [place] [employer] [facility] 04/04/2023 17:01:01 primary fusion of cervical spine completed Samantha RamseyHERIBERTO [place] - [facility] [employer] [facility] 04/04/2023 17:01:33 Imaging Results Imaging Date Name Status LastModified by Organiz ation Details LastModified Time 01/08/2025 MRI, cervical spine, w/o contrast active [facility] [address], [place], [address], 01/08/2025 19:08:51 Procedure Notes None recorded. Medical Equipment None [...] mg tablet TAKE 1 TABLET BY MOUTH THREE TIMES DAILY active Not Available Not Available No t Available amoxicill in 500 mg capsule 10/22 completed Not Available Not Available Not Available metformin 500 mg tablet TAKE 1 TABLET BY MOUTH TWICE DAILY 05/[address] foster Not Available Not Available Not Available carvedilo l 6.25 mg tablet TAKE 1 TABLET BY MOUTH TWICE DAILY active Not Available Not Available No t Available prednison e 10 mg tablet [id number], [id number], [id number] active Not Available Not Available No t [...] Available No t Available BD Regular Bevel [place] 18 gauge x 1 USE TO DRAW UP TESTOSTE SOFIYA EVERY WEEK active Not Available Not Available No t Available potassium 99 mg tablet Take 1 tablet by oral route. 05/21 completed Not Available Not Available Not Available nifedipin e ER 60 mg tablet,ex tended release 24 hr TAKE [...] a dose pack FOLLOW PACKAGE DIRECTIO NS 01/05 completed Not Available Not Available Not Available [...] Relief 50 mcg/actua tion nasal spray,[employer] [place] 1 spray every day by intranas al route. active Not Available Not Available No t Available Voquezna 20 mg tablet TAKE 1 TABLET BY MOUTH ONCE DAILY NEEDED active Not Available Not Available No t Available Vitals Date Recorded Body height Heart rate Body temperature Body mass index (BMI) Body weight Oxygen saturation Oxygen saturation in Arterial blood by Pulse oximetry Systolic blood pressure Diastolic blood pressure Provider Name and Address Organization Details Last Updated DateTime 4 167.64 cm 59 /min 98 [degF] 31.5 kg/m2 90011.5 1 g 97 % 97 % 153 mm[Hg] 91 mm[Hg] Liat Del Real [facility] [employer] [facility] 4 16:46:23 Date Recorded Body height Body mass index (BMI) Body weight Body temperature Heart rate Systolic blood pressure Diastolic blood pressure Provider Name and Address Organization Details Last Updated DateTime 4 167.64 cm 32 kg/m2 87787.2 9 g 97.7 [degF] 72 /min 124 mm[Hg] 60 mm[Hg] HERIBERTO Teixeira [facility] [employer] [facility] 4 14:09:37 Date Recorded Body height Body mass index (BMI) Body weight Body temperature Heart rate Systolic blood pressure Diastolic blood pressure Provider Name and Address Organization Details Last Updated DateTime 4 167.64 cm 32.3 kg/m2 27793.4 7 g 97.9 [degF] 78 /min 140 mm[Hg] 80 mm[Hg] HERIBERTO Teixeira [place] - [facility] [place] [employer] [facility] 4 16:27:59 Date Recorded Body height Body mass index (BMI) Body weight Body temperature Heart rate Systolic blood pressure Diastolic blood pressure Provider Name and Address Organization Details Last Updated DateTime 5 167.64 cm 31.6 kg/m2 20729.1 g 99.7 [degF] 78 /min 150 mm[Hg] 84 mm[Hg] HERIBERTO Teixeira - [facility] [place] [employer] [facility] 5 17:07:01 Social History Question Answer Notes LastModified by Organizat ion Details LastModified Time Tobacco Smoking Status Never Smoker Not Available [facility] 12/13/2022 05:57:54 Do You Have An Advance Directive? Yes [id number] Information not available 12/13/2022 What Is Your Level Of Alcohol Consumption? Occasional MIGRATION.[id number] 3182 Information not available 12/13/2022 What Is Your Level Of Caffeine Consumption? Occasional MIGRATION.714568 1471 Information not available 12/13/2022 In The 14 Days Before Symptom Onset, Have You Had Close Contact With A Laboratory-confir med COVID-19 While That Case Was Ill? No MIGRATION.911847 0593 Information not available 12/13/2022 In The 14 Days Before Symptom Onset, Have You Had Close Contact With A Person Who Is Under Investigation For COVID-19 While That Person Was Ill? No MIGRATION.185670 3912 Information not available 12/13/2022 Are You Currently Employed? Yes Information not available 04/04/2023 What Type Of Diet Are You Following? REGULAR MIGRATION.522278 5988 Information not available 12/13/2022 What Is The Highest Grade Or Level Of School You Have Completed Or The Highest Degree You Have Received? [id number] MIGRATION.252424 9690 Information not available 12/13/2022 Do You Have An Electrostatic Air Filter? 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 Yes Information not available 08/30/2023 Have There Been Any Changes To Your Family Or Social Situation? No MIGRATION.727535 1295 Information not available 12/13/2022 What Is The Fluoride Status Of Your Home? Unknown MIGRATION.415160 1093 Information not available 12/13/2022 Do You Have A Humidifier? Yes Information not available 08/30/2023 Do You Use Insect Repellent Routinely? Yes MIGRATION.848283 2465 Information not available 12/13/2022 Where Do You Live? [facility] MIGRATION.971281 2602 Information not available 12/13/2022 Do You Have A Medical Power Of Airline Customer Service Agent? Yes MIGRATION.004086 1683 Information not available 12/13/2022 Do You Have Moisture Problems In Your Home? No Information not available 08/30/2023 What Was The Date Of Your Most Recent Tobacco Screening? 01/05/2025 Information not available 01/05/2025 Have You Ever Been Counseled For Unhealthy Alcohol Use? No MIGRATION.670377 3148 Information not available 12/13/2022 Do You Have Any Pets? Yes MIGRATION.155482 7263 Information not available 12/13/2022 What Is Your Relationship Status? MIGRATION.976661 0158 Information not available 12/13/2022 Do You Use Your Seat Belt Or Car Seat Routinely? Yes MIGRATION.750660 3064 Information not available 12/13/2022 Do You Have Smoke And Carbon Monoxide Detectors In Your Home? Yes MIGRATION.480811 8931 Information not available 12/13/2022 Are You Passively Exposed To Smoke? No MIGRATION.415577 1025 Information not available 12/13/2022 Are There Any Smokers In Your House? No MIGRATION.645120 0139 Information not available 12/13/2022 What Types Of Sporting Activities Do You Participate In? None MIGRATION.705008 1996 Information not available 12/13/2022 Do You Feel Stressed (tense, Restless, Nervous, Or Anxious, Or Unable To Sleep At Night)? [id number] MIGRATION.898031 0587 Information not available 12/13/2022 Do You Use Any Illicit Or Recreational Drugs? No MIGRATION.709171 5556 Information not available 12/13/2022 Do You Use Sunscreen Routinely? No MIGRATION.102985 4986 Information not available 12/13/2022 Has Tobacco Cessation Counseling Been Provided? No N/a Information not available 04/04/2023 Have You Recently Traveled Abroad? No MIGRATION.671612 5389 Information not available 12/13/2022 Do You Have Any Dietary Restrictions? No MIGRATION.844878 6995 Information not available 12/13/2022 Do You Or Have You Ever Used Any Other Forms Of Tobacco Or Nicotine? No MIGRATION.033490 0092 Information not available 12/13/2022 Sex: Male Functional Status Question Answer Note LastModified by Organizat ion Details LastModified Time What is your exercise level? Occasional stays active at work MIGRATION.[id number] 026 Information not available 12/13/2022 Mental Status None recorded. Family History Relationship Description Onset Age of this Age Resolved Age Notes LastModified by Organization Details LastModified Time Maternal Grandmother Malignant neoplasm of lung [id number] Not available 12/13/2022 06:00:12 Paternal Grandfather Malignant neoplasm of lung MIGRATION.[id number] Not available 12/13/2022 06:00:12 Father Hypertensive disorder [...] HEARING PROBLEMS N MUMPS N SHINGLES N BOWEL PROBLEMS N DEPRESSION (INCLUDING POST ) N FAILED BACK SYNDROME N STROKE/TIA N ULCERS N BENIGN PROSTATIC HYPERPLASIA N MEASLES N HYPOTENSION N MYOCARDIAL INFARCTION N OBESITY N GERD/NAUSEA N ANEURYSM N URINARY/BLADDER/KIDNEY PROBLEMS N CORONARY ARTERY DISEASE (CAD) N Do you have Advance directive? N ADDICTION CONCERNS N ENDOMETRIOSIS N Impotence N USE OF BLOOD THINNERS N SKIN PROBLEMS N GASTROINTESTINAL DISORDER N PERIPHERAL VASCULAR DISEASE N MUSCLE,JOINT OR BONE PROBLEMS N GASTROINTESTINAL BLEEDING N BLOOD CLOTS N ASTHMA N Abdominal Pain N CATARACTS N ARTERIAL INSUFFICIENCY N ERECTILE DYSFUNCTION N VARICOSITIES N GI PROBLEMS N Low Testosterone N INFERTILITY N AIDS/HIV N CHEMOTHERAPY / RADIATION N LIVER DISEASE N MALE HYPOGONADISM N HYPERTENSION N Deficiency N TOURETTE'S N ANXIETY DISORDER N BLOOD TRANSFUSION N ANEMIA/BLOOD DISORDER N CHRONIC EAR INFECTIONS N TUBERCULOSIS N GLAUCOMA N FOOT PROBLEM N DIVERTICULITIS N CHICKENPOX N SLEEP APNEA N BACK INJECTIONS N ALLERGIES/HAYFEVER N INFECTIOUS DISEASE N HEART ARRHYTHMIA N PROSTATE N ESRD N INSOMNIA N HIGH CHOLESTEROL / HYPERLIPIDEMIA N HYPERTHYROIDISM N EYE PROBLEMS N PVD N EDEMA N CHRONIC PAIN SYNDROME N HYPOTHYROIDISM N CONSTIPATION N CAROTID BLOCKAGE N BACK / NECK PROBLEMS N ATHEROSCLEROSIS [...] N ALZHEIMER'S DISEASE N Brain Problems N HERPES N DEMENTIA N HEADACHES/MIGRAINES N SEIZURES/EPILEPSY N VASCULAR DISEASE N PACEMAKER N DIZZINESS N HEART DISEASE/HEART PROBLEMS N KIDNEY DISEASE N MULTIPLE SCLEROSIS N NEUROPSYCHOLOGICAL N CARDIAC ARRHYTHMIA N CANCER: SPECIFY N ATRIAL FIBRILLATION N Gall Stones N PULMONARY EMBOLISM N AUTOIMMUNE DISEASE N Immunizations Vaccine Type Date Status Note Provider Nam e and Address Organization Details Recorded Time COVID-19, mRNA, LNP-S, PF, 30 mcg/0.3 mL dose 1 completed HERIBERTO Teixeira, [place] [employer] [facility] [employer] [facility] 09/22/2024 16:24:51 COVID-19, mRNA, LNP-S, PF, 30 mcg/0.3 mL dose 1 completed HERIBERTO Teixeira, [employer] [facility] [employer] [facility] 09/22/2024 16:24:51 COVID-19, mRNA, LNP-S, PF, 30 mcg/0.3 mL dose, luna-sucrose 2 completed HERIBERTO Teixeira, [place] [employer] [facility] [employer] [facility] 09/22/2024 16:24:51 COVID-19, mRNA, LNP-S, PF, 100 mcg/0.5mL dose or 50 mcg/0.25mL dose 1 completed HERIBERTO Teixeira, [employer] [facility] [employer] [facility] 09/22/2024 16:24:51 COVID-19, mRNA, LNP-S, PF, 100 mcg/0.5mL dose or 50 mcg/0.25mL dose 1 completed HERIBERTO Teixeira, [employer] [facility] [employer] [facility] 09/22/2024 16:24:51 COVID-19, mRNA, LNP-S, PF, 30 mcg/0.3 mL dose 2 completed HERIBERTO Teixeira, [place] [facility] 09/22/2024 16:24:51 Influenza, split virus, quadrivalent, preservative 8 completed Not Available [facility] 12/13/2022 06:19:09 Tdap 8 completed Not Available [facility] 12/13/2022 06:19:09 Influenza, split virus, quadrivalent, PF 8 completed Not Available [facility] 12/13/2022 06:19:09 Past Encounters Encounter ID Performer Location Encounter Start Date Encounter Closed Date Diagnosis/Indication Diagnosis SNOMED-CT Code Diagnosis ICD10 Code Diagnosis Note [id number] [facility] Internal [facility] [place] [address] [place] [address] y , [place] [address] 05/18/2021 00:00:00 05/18/2021 18:05:51 [id number] [facility] [address] [place] [address] y , [place] [address] 11/30/2021 00:00:00 11/30/2021 18:13:59 [id number] [facility] Internal Med [place] [address] [place] [address] y , [place] [address] 02/08/2022 00:00:00 02/08/2022 15:06:35 [id number] [facility] Internal Med [place] [address] [place] [address] y , [place] [address] 03/01/2022 00:00:00 03/01/2022 18:05:39 [id number] [facility] Internal Med [place] [address] [place] [address] y , [place] [address] 05/31/2022 00:00:00 05/31/2022 18:05:53 [id number] [facility] Podiatry Radha Pedroza [address] [place] [address] 07/24/2022 00:00:00 07/25/2022 10:44:17 [id number] [facility] Internal [facility] [place] [address] [place] [address] [place] [address] 11/29/2022 00:00:00 11/29/2022 17:42:29 [id number] Cristina corea MD [facility] Internal [facility] [place] [address] [place] [address] [place] [address] 12/13/2022 15:53:03 12/13/2022 16:59:33 Low back pain 204920018 M54.50 Will get MRI this Sunday, will also see Dr Ayo william his prior NS coming s a note for work that was providedGe t on voltaren and flexerillE R if worse, he and his verbalize their understand ing of the above [id number] Cristina corea MD [facility] Internal Med [place] [address] [place] [address] [place] [address] 02/07/2023 16:54:55 02/07/2023 17:52:06 Low back pain 640476746 M54.50 Will get MRI this Sunday, will also see Dr Ayo william his prior NS coming s a note for work that was providedGe t on voltaren and flexerillE R if worse, he and his verbalize their understand ing of the above MRI L Spine: 12/18/2022 , needs to see NS Screening - NAD 61658922 3 Z13.9 C-scope: [facility] Flu shotUTD Tdap if 10/22/17UTD on COVID 19 vaccineRTC in 4 monthsdo labsER if worse,he and his did verbalize his understand ing of the above Essential hypertension 77204446 I10 Repeat BP 146/72 Off amlodipine 10mg daily On amiloride 5mg dailyOn losartan 100mg dailyOn nifedipine ER 60mg dailyOn aldactone 25mg daily Sees Dr Martínez well Hyperlipidemia 22018708 E78.5 On rosuvastat in 10mg dailyGet labs 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 956468216 E11.9 On jardiance 10mg dailyGet labs Chronic cough 15598678 R 05.3 Xr Chest 12/23/[address] Fabio Busby 03/23/2022 , laryngosco pe done, take PPI Pain of ri ght ankle joint 0371737269 3527889 M25.571 No on meloxicam 7.5 mg po bid OV 05/31/2022 :See case 12/27/2021 , declines any referrals OV 11/29/2022 :Did see Dr Lemus Proteinuria 74319426 R80 .[address] Foster Hypokalemia 62815103 E87 .6 Do K 20meq dailyHe will repeat the labs as he has to see Dr Foster next monthGet CMP with routine lab Dyspnea 629588621 R06.00 Get get PFT and CT chestAlso needs to see cardiology Pain of bi lateral hands 3383098279 3250482 M79.[address] Archana mcintyre, was told to get RA labsGet labs OV 03/01/2022 :GWEN/RF: NegESR: 47Now has an apt with Dr Mcmahan rheumatolo gy OV 05/31/2022 :Dr Mcmahan, diagnosed with , does not want to see him, will get an apt with [facility] rheumatolo gy OV 11/29/2022 :Did see Dr Boggs f/u [employer] thymic tissue [id number] Q89.2 CT chest 12/18/2022 : Residual thymic tissueMRI chest 01/19/2023 , see case, needs to see CT surgeon Chronic ki dney disease 608559913 N18.[address] Foster [id number] Cristina corea MD [facility] Internal Med [address] [place] [address] 04/04/2023 16:52:49 04/04/2023 17:34:58 Screening - NAD 682099697 Z13.9 C-scope: Get the report on the C-scope done [facility] Get Flu shotUTD Tdap if 10/22/17UTD on COVID 19 vaccine RTC in 4 monthsdo labsER if worseHe and his did verbalize his understand ing of the above Low back pain 396786347 M54.50 Will get MRI this Sunday, will [...] want to do IPC yet Essential hypertension 76005557 I10 Repeat BP 146/72 Off amlodipine 10mg daily On amiloride 5mg dailyOn losartan 100mg dailyOn nifedipine ER 60mg dailyOff the aldactone 25mg daily Seen Dr Martínez well Hyperlipidemia 14750573 E78.5 On rosuvastat in 10mg dailyGet labs 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 060294298 E11.9 On jardiance 10mg dailyGet labs Chronic cough 52581372 R 05.3 Xr Chest 12/23/[address] Fabio Busby 03/23/2022 , laryngosco pe done, take PPI Pain of ri ght ankle joint 1571540200 3269468 M25.[address] Lemus in the past Proteinuria 54823764 R80 .[address] Wang Hypokalemia 94238959 E87 .6 Do K 20meq dailyHe will repeat the labs as he has to see Dr Foster next monthGet CMP with routine lab Dyspnea 247976969 R06.00 Get get PFT and CT chestAlso needs to see cardiology Pain of bi lateral hands 5738491559 4008206 M79.[address] Archana mcintyre, was told to get RA labsGet labs OV 03/01/2022 :GWEN/RF: NegESR: 47Now has an apt with Dr Mcmahan rheumatolo gy OV 05/31/2022 :Dr Mcmahan, diagnosed with , does not want to see him, will get an apt with [facility] rheumatolo gy OV 11/29/2022 :Did see Dr Boggs f/u [employer] thymic tissue [id number] Q89.2 CT chest 12/18/2022 : Residual thymic tissueMRI chest 01/19/2023 , see case, needs to see CT surgeon Dr French Bolaños 02/23/2023 : Consider resection, states that he will do another CT chest in Sep 06 and then decide Chronic ki dney disease 011978678 N18.[address] Wang 04/05/2023 [id number] Cristina corea MD [facility] Internal Med [address] [facility] y , [place] [address] 08/08/2023 17:05:12 08/09/2023 10:07:08 Screening - NAD [id number] Z13.9 C-scope: Get the report on the C-scope done [facility] Get Flu shotUTD Tdap if 10/22/17UTD on COVID 19 vaccine RTC in 4 monthsdo labsER if worseHe and his did verbalize his understand ing of the above Low back pain 574722557 M54.50 Will get MRI this Sunday, will [...] want to do IPC yet Essential hypertension 83415433 I10 Repeat BP 146/72 Off amlodipine 10mg daily On amiloride 5mg dailyOn losartan 100mg dailyOn nifedipine ER 60mg dailyOff the aldactone 25mg daily Seen Dr Martínez well Hyperlipidemia 85497144 E78.5 On rosuvastat in 10mg dailyGet labs 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 314156728 E11.9 On jardiance 10mg dailyGet labs Chronic cough 66533815 R 05.3 Xr Chest 12/23/[address] Fabio Busby 03/23/2022 , laryngosco pe done, take PPI Pain of ri ght ankle joint 7165276855 9937729 M25.[address] Lemus in the past Proteinuria 02782844 R80 .[address] Wang Hypokalemia 92869581 E87 .6 Do K 20meq dailyHe will repeat the labs as he has to see Dr Foster next monthGet CMP with routine lab Dyspnea 214940707 R06.00 Get get PFT and CT chestAlso needs to see cardiology Pain of bi lateral hands 8124658025 8124368 M79.[address] Archana mcintyre, was told to get RA labsGet labs OV 03/01/2022 :GWEN/RF: NegESR: 47Now has an apt with Dr Mcmahan rheumatolo gy OV 05/31/2022 :Dr Mcmahan, diagnosed with , does not want to see him, will get an apt with [facility] rheumat[facility] gy OV 11/29/2022 :Did see Dr Boggs f/u [employer] thymic tissue [id number] Q89.2 CT chest 12/18/2022 : Residual thymic tissueMRI chest 01/19/2023 , see case, needs to see CT surgeon Dr French Bolaños 02/23/2023 : Consider resection, states that he will do another CT chest in Sep 06 and then decide Chronic ki dney disease 851585594 N18.[address] Wang 04/05/2023 Obstructiv e sleep apnea syndrome 31194037 G47.33 Sleep study 06/04/2023 Needs to see pulmonary MD [id number] Arelis Winkler MD [facility] [address] [address] 08/30/2023 09:05:52 08/31/2023 08:37:08 Obstructive sleep apnea syndrome 59641399 G47.33 [id number] [address]relis Winkler [address] [facility] Pulmonolo [address] [address] 09/27/2023 09:08:02 10/01/2023 09:06:50 Obstructive sleep apnea syndrome 90000743 G47.33 [id number] Cristina corea MD [facility] Internal [facility] [place] [address] [place] [address] [place] [address] 11/28/2023 13:04:02 11/28/2023 14:39:39 Screening - NAD 047340594 Z13.9 C-scope: Get the report on the C-scope done in [facility] Get Flu shotUTD Tdap if 10/22/17UTD on COVID 19 vaccine RTC in 4 monthsdo labsER if worseHe and his did verbalize his understand ing of the above Low back pain 670562735 M54.50 Will get MRI this Sunday, will [...] want to do IPC yet Essential hypertension 42535998 I10 ECHO 09/11/2023 : EF 55% Off amlodipine 10mg daily On amiloride 5mg dailyOn losartan 100mg dailyOn nifedipine ER 60mg dailyOff the aldactone 25mg daily Seen Dr Martínez well Hyperlipidemia 31275904 E78.5 On rosuvastat in 10mg dailyGet labs 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 399522843 E11.9 On jardiance 10mg dailyGet labs Chronic cough 83051090 R 05.3 Xr Chest 12/23/[address] Fabio Busby 03/23/2022 , laryngosco pe done, take PPI Pain of ri ght ankle joint 7746647471 9730880 M25.[address] Lemus in the past Proteinuria 24551967 R80 .[address] Wang Dyspnea 071493037 R06.00 Dr Rolle 09/19/2023 , cleared for thymus surgery Pain of bi lateral hands 4024944155 6724088 M79.[address] Archana mcintyre, was told to get RA labsGet labs OV 03/01/2022 :GWEN/RF: NegESR: 47Now has an apt with Dr Marj franco gy OV 05/31/2022 :Dr Mcmahan, diagnosed with , does not want to see him, will get an apt with [facility] rheumatchrissy gy OV 11/29/2022 :Did see Dr Boggs f/u PRN IPC pain management Lois Hawkins 11/01/2023 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 CT chest 12/18/2022 : Residual thymic [...] labs are negative Chronic ki dney disease 961652312 N18.[address] Wang 04/05/2023 Obstructiv e sleep apnea syndrome 58439145 G47.33 Sleep study 06/04/[address] Winkler Male hypogonadism 275822 06 E29.1 See urology, he is interested in knowing about testostero ne, advised about the side effects for testostero ne [id number] Cristina corea MD [facility] Internal Med [address] [facility] [place] [address] 05/05/2024 14:27:34 05/05/2024 15:19:40 Screening - NAD [id number] Z13.9 C-scope: Get the report on the C-scope done in [facility] Get Flu shotUTD Tdap if 10/22/17UTD on COVID 19 vaccine RTC in 4 monthsdo labsER if worseHe and his did verbalize his understand ing of the above Low back pain [id number] M54.50 Will get MRI this Sunday, will [...] want to do IPC yet Essential hypertension [id number] I10 ECHO 09/11/2023 : EF 55% Off amlodipine 10mg daily On amiloride 5mg daily, refilled see case 04/23/2024 On losartan 100mg dailyOn nifedipine ER 60mg dailyOff the aldactone 25mg daily Seen Dr Martínez well Hyperlipidemia 67574941 E78.5 On rosuvastat in 10mg dailyGet labs 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 664208955 E11.9 On jardiance 10mg dailyGet labs Chronic cough 35177058 R 05.3 Xr Chest 12/23/[address] Fabio Busby 03/23/2022 , laryngosco pe done, take PPI Pain of ri ght ankle joint [id number] 7417982 M25.[address] Lemus in the past Proteinuria 68744911 R80 [address] Wang Dyspnea 463368453 R06.00 Dr Rolle 09/19/2023 , cleared for thymus surgery Pain of bi lateral hands 8788140097 7960663 M79.[address] Archana mcintyre, [...] management Lois Hawkins 11/01/2023 Accessory thymic tissue [id number] Q89.2 CT chest 12/18/2022 : Residual thymic [...] in 6 months Chronic ki dney disease 234150623 N18.[address] Wang 04/05/2023 Obstructiv e sleep apnea syndrome 00493466 G47.33 Sleep study 06/04/[address] Winkler 09/27/2023 Get a referral to another pulm Male hypogonadism 737342 06 E29.1 See urology, he is interested in knowing about testostero ne, advised about the side effects for testostero ne Dr Sullivan 05/23/2024 Gastroesop hageal reflux disease without esophagitis 557486562 K21.9 On omeprazole 20mg daily as needed, can do 40mg daily as needed, needs to get EGD done [id number] Anne-Marie Sullivan MD [facility] [address] [address] 05/23/2024 16:39:39 05/23/2024 17:30:55 Male hypogonadism 58572807 E29.1 Benign pro static hyperplasia with outflow obstruction 241825728 N40.1 [id number] corea [address] [facility] Internal Med Tre [facility] [address] [facility] [place] [address] 07/30/2024 14:01:51 07/30/2024 14:30:34 Screening - NAD [id number] Z13.9 C-scope: Get the report on the C-scope done in [facility] Get Flu shotUTD Tdap if 10/22/17UTD on COVID 19 vaccine RTC in 4 monthsdo labsER if worseHe and his did verbalize his understand ing of the above Otitis media 53450140 H6 6.92 Mildly sclerosed and red TMWill start on augmentinN otify if not better, then may beed to be on MDP or see ENTKeep on the zyrtec and flonase [id number] Anne-Marie Sullivan MD [facility] [address] [address] 08/15/2024 15:09:23 08/15/2024 15:10:53 Male hypogonadism 25441095 E29.1 Testostero ne level below reference range 144851191 R89.1 [id number] Cristina corea MD [facility] Primary Care [facility] [address] [place] [address] 09/22/2024 16:04:15 09/22/2024 17:15:16 Screening - NAD [id number] Z13.9 C-scope: Get the report on the C-scope done in [facility] Get Flu shotUTD Tdap if 10/22/17UTD on COVID 19 vaccine RTC in 4 monthsdo labsER if worseHe and his did verbalize his understand ing of the above Low back pain 492026632 M54.50 Will get MRI this Sunday, will [...] want to do IPC yet Essential hypertension 21750971 I10 ECHO 09/11/2023 : EF 55% Off amlodipine 10mg daily On amiloride 5mg dailyOn losartan 100mg dailyOn nifedipine ER 60mg dailyOff the aldactone 25mg daily Seen Dr Martínez well Hyperlipidemia 43500680 E78.5 On rosuvastat in 10mg dailyGet labs 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 776008448 E11.9 On jardiance 10mg dailyGet labs Chronic cough 73235540 R 05.3 Xr Chest 12/23/[address] Fabio Busby 03/23/2022 , laryngosco pe done, take PPI Pain of ri ght ankle joint 4964748008 1107641 M25.[address] Lemus in the past Proteinuria 43480812 R80 .[address] Wang Dyspnea 725870821 R06.00 Dr Rolle 09/19/2023 , cleared for thymus surgery Pain of bi lateral hands 7695648716 1032650 M79.[address] Archana mcintyre, was told to get RA labsGet labs OV 03/01/2022 :GWEN/RF: NegESR: 47Now has an apt with Dr Mcmahan rheumatolo gy OV 05/31/2022 :Dr Mcmahan, diagnosed with , does not want to see him, will get an apt with [facility] rheumatolo gy OV 11/29/2022 :Did see Dr Boggs f/u PRN IPC pain management Lois Mertsavannah 11/01/2023 Accessory thymic tissue 20181979 Q89.2 CT chest 12/18/2022 : Residual thymic [...] in 6 months Chronic ki dney disease 101888274 N18.[address] Wang 04/05/2023 Obstructiv e sleep apnea syndrome 80150601 G47.33 Sleep study 06/04/[address] Winkler 09/27/2023 Get a referral to another [facility] Fabio Neves CEPHALOMETRIC ANALYST 07/07/2024 , f/u 4-6 months Male hypogonadism 945787 06 E29.1 See urology, he is interested in knowing about testostero ne, advised about the side effects for testostero ne Dr Sullivan 05/23/2024 Dr Sullivan 08/15/2024 , now on testostero ne Gastroesop hageal reflux disease without esophagitis 410977732 K21.9 On omeprazole 20mg daily as needed, can do 40mg daily as needed, needs to get EGD done Erythrocytosis 189487676 D75.1 Has ALISSA and is now on testostero ne, get a referral to hematology [id number] Cristina corea MD [facility] Primary Care Amalia thacker [address] [facility] [address] [place] [address] 01/05/2025 16:27:00 01/05/2025 17:43:16 Screening - NAD [id number] Z13.9 C-scope: Get the report on the C-scope done in [facility] Get Flu shotUTD Tdap if 10/22/17UTD on COVID 19 vaccine RTC in 4 monthsdo labsER if worseHe and his did verbalize his understand ing of the above Low back pain 797670208 M54.50 Will get MRI this Sunday, will also see Dr Ayo iwlliam his prior NS coming s a note for work that was providedGe t on voltaren and flexerillE R if worse, he and his verbalize their understand ing of the above MRI L Spine: 12/18/2022 , needs to see NSStates that he was told by Dr Kebede's office that they would not see him, he does not want to do IPC yet OV 01/05/2025 :MRI is scheduled for this en is to see Dr Zavala on Essential hypertension 74119508 I10 ECHO 09/11/2023 : EF 55% Off amlodipine 10mg daily On amiloride 5mg dailyOn losartan 100mg dailyOn nifedipine ER 60mg dailyOff the aldactone 25mg daily Seen Dr Martínez well Hyperlipidemia 27884112 E78.5 On rosuvastat in 10mg dailyGet labs 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 903289665 E11.9 On jardiance 10mg dailyGet labs Chronic cough 77515591 R 05.3 Xr Chest 12/23/[address] Fabio Busby 03/23/2022 , laryngosco pe done, take PPI Pain of ri ght ankle joint 6474957391 9191466 M25.[address] Lemus in the past Proteinuria 56241137 R80 .9 No more apts with Dr Wang Dyspnea 594140259 R06.00 Dr Rolle 09/19/2023 , cleared for thymus surgery Pain of bi lateral hands 1827652042 0229419 M79.641 [address] Archana mcintyre, was told to get RA labsGet labs OV 03/01/2022 :GWEN/RF: NegESR: 47Now has an apt with Dr Marj franco gy OV 05/31/2022 :Dr Mcmahan, diagnosed with , does not want to see him, will get an apt with [facility] rheumatchrissy gy OV 11/29/2022 :Did see Dr Boggs f/u PRN IPC pain management Lois Hawkins 11/01/2023 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 CT chest 12/18/2022 : Residual thymic [...] , repeat the CT chest in [address] Bolaños in 03/2025, is to get the CT chest in March 2025 Chronic ki dney disease 077530940 N18.[address] Wang Obstructiv e sleep apnea syndrome 70261980 G47.33 Sleep study 06/04/[address] Winkler 09/27/2023 Get a referral to another [facility] Fabio Neves CEPHALOMETRIC ANALYST 07/07/2024 , f/u 4-6 months Referred to Maddy Mackey CEPHALOMETRIC ANALYST Male hypogonadism 172534 06 E29.1 See urology, he is interested in knowing about testostero ne, advised about the side effects for testostero ne Dr Sullivan 05/23/2024 Dr Sullivan 08/15/2024 , now on testostero ne Referred to Dr Tomas urologist Gastroesop hageal reflux disease without esophagitis 169904882 K21.9 On omeprazole 20mg daily as needed, can do 40mg daily as needed, needs to get EGD done EGD 11/27/2024 : Dr Salcido Erythrocytosis 042540134 D75.1 Has ALISSA and is now on [...] [place] Member ID Guarantor Name 05/23/2024 1 [place] [id number] Daiana Conteh [id number] Filipe Conteh 07/30/2024 1 [place] [id number] Daiana Crespoinski [id number] Filipe Crespoinski 08/15/2024 1 [place] [id number] Daiana Crespoinski [id number] Filipe Crespoinski 09/22/2024 1 [place] [id number] Daiana Crespoinski [id number] Filipe Crespoinski 01/05/2025 1 [place] [id number] Daiana Crespoinski [id number] Filipe Conteh Notes Date Note Type Note Provider Name and Address Organization Details Recorded Time 05/23/2024 text/html the patient come s in [...] per night to void Anne-Marie Sullivan MD [address] [place] [address], [place] [address], [place], [address], [place] [employer] 05/23/2024 19:51:54 07/30/2024 text/html Here to jay Adan Hx:GERDHTNReviewed social family and surgical historyHere as he would like to get his 'glands' checked, he did see his PMD and was told that he had an inner ear infection and the CEPHALOMETRIC ANALYST wanted a CT scan but he does [...] from his ear Cristina Hodgson MD [address] [facility], [address], [place], [address], [place] [employer] 07/30/2024 14:51:43 08/15/2024 text/html the patient was previously seen and started on testosterone replacement he receives A dose of 0.75 mg of testosterone injection once a week. His labs show a PSA of 0.78. Hemoglobin 16 hematocrit 51 total testosterone 622 He says he feels better Anne-Marie Sullivan MD [address] [facility], [facility] [address], [place], [address], [employer] 08/18/2024 16:17:22 09/22/2024 text/html Here to jay Adan Hx:GERDHTNReviewed social family and surgical historyHere as he would like to get his 'glands' checked, he did see his PMD and was told that he had an inner ear infection and the CEPHALOMETRIC ANALYST wanted a CT scan but he does [...] would like to get the refill for Voquenza, he states that this has helped him a lot, he did see urology and did labs with them Cristina Hodgson MD [address] [facility], [address], [place], [address], [place] [employer] [facility] [employer] 09/24/2024 14:07:54 01/05/2025 text/html Here to jay Adan Hx:GERDHTNReviewed social family and surgical historyHere as he would like to get his 'glands' checked, he did see his PMD and was told that he had an inner ear infection and the CEPHALOMETRIC ANALYST wanted a CT scan but he does [...] his BP is much betterHe would like darylgra for his EDOV 05/18/2021:Here for his rouitne [...] see urology and did labs with them OV 01/05/2025: Here for his f/u apt, he is doing well today, not yet done the MRI for his pain and then also has to see the NS Cristina Hodgson MD [address] [place], [place] [address]f[place]al, [facility] [address], [place], [address], [place] [employer] [employer] [facility] 01/05/2025 17:44:22
[2025-02-10 14:27] LABS: Iron 85 ug/dL (49-181)
[2025-02-10 14:37] LABS: Percent Iron Saturation 27 % (20-50)
[2025-02-13 14:38] LABS: Erythropoietin (EPO) 17.4 mIU/mL (2.6-18.5)
== END 2025-02-10 11:12 | disposition home or self-care (01) ==
LOC: ANHLAB 11:12
PROVIDERS: PCP Internal Medicine; Visit Provider Internal Medicine Hematology & Oncology
DX: D50.9 Iron deficiency anemia, unspecified (principal); D75.1 Secondary polycythemia
CPT/HCPCS: 36415; 82668; 82728; 83540; 83550; 85025